=== PATIENT | male | born 1935 | race Caucasian/White ===

== ENCOUNTER 2018-10-04 16:03 | Inpatient (IN) | payer OTHER ==
[2018-10-04] MEDS ORDERED: LORazepam 2 MG/ML VIAL ONE ×2 (16:55→17:02)
[2018-10-04] MEDS ORDERED: NA CHLORIDE 0.9% 1,000 ML ONE ×2 (16:56→17:04)
[2018-10-04 16:59] LABS: Absolute Lymphocytes (CBC) 2.1 K/uL (0.7-4.9); Absolute Monocytes 0.6 K/uL (0.1-1.3); Absolute Neutrophil 7.1 K/uL (1.8-8.0); Basophils % 0.8 % (0-1.3); Eosinophils % 2.4 % (0-4.4); Lymphocytes % 20.7 % (15.3-44.8); MPV 9.8 fL (7.6-11.3); Monocytes % 5.9 % (3.3-12.3)
[2018-10-04] MEDS ORDERED: VANCOMYCIN 1 GM/250 ML BAG ONE (17:04)
[2018-10-04] MEDS ORDERED: CEFEPIME 1 GM/100 ML BAG IV ONE (17:05)
[2018-10-04 17:12] LABS: Protime INR 1.02
[2018-10-04 17:19] LABS: Albumin 3.5 g/dL (3.4-5.0); Bilirubin Direct 0.3 mg/dL (0-0.2); Bilirubin Total 0.7 mg/dL (0.2-1.0); CKMB Creatine Kinase MB 4.1 ng/mL (0.3-3.6); Protein, Total 7.7 g/dL (6.4-8.2); Troponin (Emerg Dept Use Only) 0.03 ng/mL (0.0-0.045)
--- NOTE | 2018-10-04 18:34 | RAD REPORT ---
EXAM DESCRIPTION: RAD - Chest Single View - 10/04/2018 5:56 pm CLINICAL HISTORY: CONGESTION Chest pain. COMPARISON: No comparisons FINDINGS: Portable technique limits examination quality. Mild interstitial pulmonary edema suspected. The heart is moderately enlarged in size. No displaced f ractures. IMPRESSION: Mild CHF.
--- NOTE | 2018-10-04 19:19 | ER ---
Nurse's Notes [facility] Name: Tray Coreas Age: 83 yrs Sex: Male : 1935 Arrival Date: 10/04/2018 Time: 16:06 Bed 8 Private MD: Ventura Romano E Diagnosis: Chronic atrial fibrillation;Tachycardia, unspecified Presentation: 10/04 16:05 Presenting complaint: states: "we went to the doctor's for a regular check up and aa5 they sent us here because he was really drowsy". Pt currently drowsy, awakens to verbal stimuli and A\\T\\O x 4. Pt's states "he fell twice this week because his left knee gives out on him and he's been really sluggish over the last week". 16:05 Transition of care: patient was not received from another setting of care. Onset of aa5 symptoms was September 2018. Risk Assessment: Do you want to hurt yourself or someone else? Patient reports no desire to harm self or others. Care prior to arrival: None. 16:05 Method Of Arrival: Wheelchair aa5 16:05 Acuity: JACOB 2 aa5 16:22 Initial Sepsis Screen: Does the patient meet any 2 criteria? Systolic BP < 90 mmHg. HR tw2 > 90 bpm. Does the patient have a suspected source of infection? Yes: Productive cough/pneumonia. Historical: - Allergies: 16:06 No Known Allergies; aa5 - Home Meds: 16:06 Lisinopril Oral [Active]; Tramadol Oral [Active]; meloxicam oral oral [Active]; Lyrica aa5 Oral [Active]; - PMHx: 16:06 Hypertension; Glaucoma; Back pain; knee pain; Chronic R foot wound; aa5 - PSHx: 16:06 retinal detachment repair-Right; Right rotator cuff sx; aa5 - Immunization history:: Pneumococcal vaccine is up to date, Flu vaccine is up to date. - Social history:: Smoking status: Patient/guardian denies using tobacco, Patient/guardian denies using alcohol, street drugs, The patient lives with family. - Ebola Screening: : No symptoms or risks identified at this time. - Family history:: not pertinent. Screenin:03 Abuse screen: Denies threats or abuse. Nutritional screening: No deficits noted. tw2 Tuberculosis screening: No symptoms or risk factors identified. Fall Risk Fall in past 12 months (25 points). Ambulatory Aid- Crutches/Cane/Walker (15 pts). Assessment: 16:22 General: Appears in no apparent distress. Behavior is calm, cooperative, appropriate tw2 for age. Pain: Denies pain. Neuro: Level of Consciousness is awake, alert, obeys commands, Oriented to person, place, situation. 16:45 Reassessment: pt started coughing and choking at this time, staff assist button hit, tw2 MAO Bass and MAO Jasso at bedside with Dr. Nuno at this time, pt had cough drop in mouth, cough drop removed, pt able to stop coughing and catch his breath at this time. Respiratory: Airway is patent Respiratory effort is even, unlabored, Respiratory pattern is regular, symmetrical, Breath sounds with wheezes bilaterally. GI: Abdomen is round obese, Bowel sounds present X 4 quads. : No signs and/or symptoms were reported regarding the genitourinary system. EENT: No signs and/or symptoms were reported regarding the EENT system. Derm: No signs and/or symptoms reported regarding the dermatologic system. Musculoskeletal: Range of motion: intact in all extremities. 17:55 Reassessment: Patient appears in no apparent distress at this time. Patient and/or tw2 family updated on plan of care and expected duration. Pain level reassessed. pt is snoring at this time, nad. Cardiovascular: Heart tones S1 S2 Patient's skin is warm and dry. 18:50 Reassessment: Patient appears in no apparent distress at this time. Patient and/or tw2 family updated on plan of care and expected duration. Pain level reassessed. Pt is snoring at this time, noted gurgling when snoring, offered suction to pt, pt tolerated well, small white mucous suctioned out at this time. 19:41 General: Appears uncomfortable, obese, Behavior is calm, cooperative, appropriate for ao age. Pain: Denies pain. Neuro: Level of Consciousness is awake, alert, obeys commands, Oriented to person, place, situation, Moves all extremities. Speech is normal, Facial symmetry appears normal. Cardiovascular: Heart tones S1 S2 Patient's skin is warm and dry. Respiratory: Airway is patent Respiratory effort is even, unlabored, Respiratory pattern is regular, symmetrical, Breath sounds with wheezes bilaterally. GI: Abdomen is round obese, Bowel sounds present X 4 quads. : No signs and/or symptoms were reported regarding the genitourinary system. EENT: No signs and/or symptoms were reported regarding the EENT system. Derm: No signs and/or symptoms reported regarding the dermatologic system. Skin is pink, warm \\T\\ dry. normal. Musculoskeletal: Range of motion: intact in all extremities. Vital Signs: 16:06 BP 66 / 50; Pulse 140; Resp 14 S; Temp 98.9(O); Pulse Ox 99% on R/A; Weight 99.79 kg aa5 (R); Height 5 ft. 11 in. (180.34 cm) (R); 16:39 BP 85 / 48; Pulse 139; iw 17:07 BP 81 / 69; Pulse 117; Resp 16 S; Pulse Ox 98% on 4 lpm NC; iw 17:16 BP 102 / 68; Pulse 108; Resp 25; Pulse Ox 100% on R/A; tw2 17:52 BP 115 / 85; Pulse 103; Resp 14; Pulse Ox 100% on 2 lpm NC; tw2 18:47 BP 124 / 69; Pulse 111; Resp 16; Pulse Ox 97% on 2 lpm NC; tw2 20:11 BP 112 / 65; Pulse 95; Resp 25; Pulse Ox 99% ; ao 22:38 BP 120 / 80; Pulse 102; Resp 28; Pulse Ox 100% ; Pain 0/10; ao 16:06 Body Mass Index 30.68 (99.79 kg, 180.34 cm) aa5 ED Course: 16:06 Patient arrived in ED. mr 16:07 Ventura Romano MD is Private Physician. mr 16:07 Arm band placed on. aa5 16:17 Triage completed. aa5 16:22 Placed in gown. Bed in low position. Side rails up X2. Adult w/ patient. Cardiac tw2 monitor on. Pulse ox on. NIBP on. pt placed on life pack. 16:25 Reema Nuno MD is Attending Physician. ma2 16:27 Svetlana Ruiz RN is Primary Nurse. tw2 16:45 Inserted saline lock: 22 gauge in right antecubital area, using aseptic technique. tw2 ,using aseptic technique. MAO Bass Blood collected. 16:50 EKG done, by microbiological laboratory technician. jb1 16:51 with cardioconversion, charged to 200 josep, shocked at [address] Nuno, tw2 MAO Bucio, MAO Jasso, MAO Mota and MAO Bass at bedside at this time. 17:01 Influenza Screen (a \\T\\ B) Sent. tw2 17:04 Blood Culture Adult (2) Sent. tw2 17:59 Chest Single View XRAY In Process Unspecified. EDMS 19:07 Report given to MAO Bearden and MAO Varghese 2nd lactate due at 1920 and urine dipstick tw2 outstanding at this time. 19:13 Primary Nurse role handed off by Svetlana Ruiz RN tw2 19:17 Reema Olson MD is Hospitalizing Provider. ma2 19:34 Halima Davis RN is Primary Nurse. ea 22:39 Patient admitted, IV remains in place. ao Administered Medications: 16:50 Drug: Ativan 2 mg Route: IVP; Site: right antecubital; tw2 17:00 Follow up: Response: No adverse reaction tw2 16:59 Drug: NS 0.9% (30 ml/kg) 30 ml/kg Route: IV; Rate: bolus; Site: right antecubital; tw2 18:49 Follow up: Response: No adverse reaction; IV Status: Completed infusion; IV Intake: tw2 2000ml 17:14 Drug: Cefepime 1 grams Route: IVPB; Rate: 200 ml/hr; Infused Over: 30 mins; Site: right tw2 antecubital; 17:42 Follow up: Response: No adverse reaction; IV Status: Completed infusion tw2 17:48 Drug: vancoMYCIN 1 grams Route: IVPB; Infused Over: 2 hrs; Site: right antecubital; tw2 Intake: 18:49 IV: 2000ml; Total: 2000ml. tw2 Outcome: 19:18 Decision to Hospitalize by Provider. ma2 22:38 Admitted to ICU accompanied by nurse, room 1, Other Bedside report given to MAO Garcia ao 22:38 Condition: stable 22:38 Instructed on the need for admit. 22:40 Patient left the ED. ao Signatures: Dispatcher [employer] EDMS Mickey Chacko jb1 Ana Luisa Vgea Irene, RN RN iw Calderon, Audri, RN RN aa5 Suleiman Brandt, RN RN Svetlana Grimes RN RN tw2 Halima Davis RN Reema Prather ea, MD MD ma2 Corrections: (The following items were deleted from the chart) 16:15 16:15 Arm band placed on aa5 aa5 17:57 16:22 Neuro: tw2 tw2 19:36 19:22 LACTATE+C.LAB.BRZ drawn and sent. tw2 EDMS
--- NOTE | 2018-10-04 19:19 | EDPHYS ---
Physician Documentation [facility] Name: Tray Coreas Age: 83 yrs Sex: Male : 1935 Arrival Date: 10/04/2018 Time: 16:06 Bed 8 Private MD: Ventura Romano E ED Physician Reema Nuno HPI: 10/04 17:47 This 83 yrs old Male presents to ER via Wheelchair with complaints of Fall ma2 Injury, Confusion. 17:47 This 83 yrs old Male presents to ER via Wheelchair with complaints of Fall ma2 Injury, Confusion. 17:47 This 83 yrs old Male presents to ER via Wheelchair with complaints of Fall ma2 Injury, Confusion. 17:47 Onset: The symptoms/episode began/occurred gradually, 2 day(s) ago. Associated ma2 injuries: The patient sustained no obvious injury. Severity of symptoms: At their worst the symptoms were moderate. The patient has not experienced similar symptoms in the past. here with cough and tachycardia been on z-pack for 3 days . Historical: - Allergies: 16:06 No Known Allergies; aa5 - Home Meds: 16:06 Lisinopril Oral [Active]; Tramadol Oral [Active]; meloxicam oral oral [Active]; Lyrica aa5 Oral [Active]; - PMHx: 16:06 Hypertension; Glaucoma; Back pain; knee pain; Chronic R foot wound; aa5 - PSHx: 16:06 retinal detachment repair-Right; Right rotator cuff sx; aa5 - Immunization history:: Pneumococcal vaccine is up to date, Flu vaccine is up to date. - Social history:: Smoking status: Patient/guardian denies using tobacco, Patient/guardian denies using alcohol, street drugs, The patient lives with family. - Ebola Screening: : No symptoms or risks identified at this time. - Family history:: not pertinent. ROS: 17:47 Constitutional: Negative for fever, chills, and weight loss. ma2 17:47 Respiratory: Positive for cough, shortness of breath, Negative for orthopnea. 17:47 All other systems are negative. Exam: 17:47 Constitutional: This is a well developed, well nourished patient who is awake, alert, ma2 and in no acute distress. Chest/axilla: Normal chest wall appearance and motion. Nontender with no deformity. No lesions are appreciated. 17:47 Abdomen/GI: Soft, non-tender, with normal bowel sounds. No distension or tympany. No guarding or rebound. No evidence of tenderness throughout. MS/ Extremity: Pulses equal, no cyanosis. Neurovascular intact. Full, normal range of motion. Neuro: Awake and alert, GCS 15, oriented to person, place, time, and situation. Cranial nerves II-XII grossly intact. Motor strength 5/5 in all extremities. Sensory grossly intact. Cerebellar exam normal. Normal gait. 17:47 Chest/axilla: Palpation: is normal. 17:47 Cardiovascular: Rate: tachycardic, Rhythm: irregular, irregularly irregular. 17:47 Respiratory: moderate respiratory distress is noted, Respirations: labored breathing, Breath sounds: rhonchi, that are moderate, are scattered, Respiratory rate: 22 Vital Signs: 16:06 BP 66 / 50; Pulse 140; Resp 14 S; Temp 98.9(O); Pulse Ox 99% on R/A; Weight 99.79 kg aa5 (R); Height 5 ft. 11 in. (180.34 cm) (R); 16:39 BP 85 / 48; Pulse 139; iw 17:07 BP 81 / 69; Pulse 117; Resp 16 S; Pulse Ox 98% on 4 lpm NC; iw 17:16 BP 102 / 68; Pulse 108; Resp 25; Pulse Ox 100% on R/A; tw2 17:52 BP 115 / 85; Pulse 103; Resp 14; Pulse Ox 100% on 2 lpm NC; tw2 18:47 BP 124 / 69; Pulse 111; Resp 16; Pulse Ox 97% on 2 lpm NC; tw2 20:11 BP 112 / 65; Pulse 95; Resp 25; Pulse Ox 99% ; ao 22:38 BP 120 / 80; Pulse 102; Resp 28; Pulse Ox 100% ; Pain 0/10; ao 16:06 Body Mass Index 30.68 (99.79 kg, 180.34 cm) aa5 Procedures: 17:49 Cardioversion: (synchronized) for treatment of A fib, with 100 joules X 1. 200 joules X ma2 1. Post procedure rhythm is sinus rhythm, the patient tolerated the procedure well. MDM: 16:25 Patient medically screened. ma2 17:47 Differential diagnosis: abrasion, contusion, sprain, afib w rvr, pneumonia. ok2 17:51 Data reviewed: vital signs, nurses notes. ok2 19:16 Counseling: I had a detailed discussion with the patient and/or guardian regarding: the [facility] historical points, exam findings, and any diagnostic results supporting the discharge/admit diagnosis, the presence of at least one elevated blood pressure reading (>120/80) during this emergency department visit, the need for further work-up and treatment in the hospital. Response to treatment: the patient's symptoms have markedly improved after treatment. ED course: discussed with dr. osborne . 10/04 16:37 Order name: Basic Metabolic Panel; Complete Time: 17:53 [facility] 10/04 16:37 Order name: Blood Culture Adult (2) [facility] 10/04 16:37 Order name: CBC with Diff; Complete Time: 17:53 [facility] 10/04 16:37 Order name: Ckmb; Complete Time: 17:53 [facility] 10/04 16:37 Order name: CPK; Complete Time: 17:53 [facility] 10/04 16:37 Order name: Lactate; Complete Time: 17:53 ok10/04 16:37 Order name: LFT's; Complete Time: 17:53 [facility] 10/04 16:37 Order name: Lipase; Complete Time: 17:53 [facility] 10/04 16:37 Order name: Procalcitonin; Complete Time: 17:53 ok10/04 16:37 Order name: Protime (+inr); Complete Time: 17:53 [facility] 10/04 16:37 Order name: Ptt, Activated; Complete Time: 17:53 [facility] 10/04 16:37 Order name: Troponin (emerg Dept Use Only); Complete Time: 17:53 ok10/04 16:37 Order name: Urine Microscopic Only [facility] 10/04 16:37 Order name: Influenza Screen (a \T\ B); Complete Time: 17:53 [facility] 10/04 16:37 Order name: Chest Single View XRAY; Complete Time: 19:15 [facility] 10/04 19:48 Order name: Lactate Sepsis 2 HR Follow-up [facility] 10/04 19:55 Order name: Echo with Doppler [facility] 10/04 19:55 Order name: CBC with Automated Diff [facility] 10/04 19:55 Order name: CBC with Automated Diff [facility] 10/04 19:55 Order name: Comprehensive Metabolic Panel [facility] 10/04 19:55 Order name: Comprehensive Metabolic Panel [facility] 10/04 19:55 Order name: NT PRO-BNP [facility] 10/04 19:55 Order name: NT PRO-BNP [facility] 10/04 19:55 Order name: Troponin I [facility] 10/04 19:55 Order name: Troponin I [facility] 10/04 19:55 Order name: Troponin I [facility] 10/04 16:37 Order name: Cardiac monitoring; Complete Time: 17:01 [facility] 10/04 16:37 Order name: EKG - Nurse/Tech; Complete Time: 17:01 [facility] 10/04 16:37 Order name: IV Saline Lock - Large Bore; Complete Time: 17:01 [facility] 10/04 16:37 Order name: Labs collected and sent; Complete Time: 17:01 [facility] 10/04 16:37 Order name: O2 Per Protocol; Complete Time: 17:01 [facility] 10/04 16:37 Order name: O2 Sat Monitoring; Complete Time: 17:01 [facility] 10/04 17:16 Order name: EKG Electrocardiogram [facility] 10/04 17:55 Order name: EKG Electrocardiogram [facility] 10/04 19:55 Order name: CONS Physician Consult [facility] 10/04 19:55 Order name: Heart Healthy [facility] 10/04 19:55 Order name: EKG Electrocardiogram [facility] 10/04 19:55 Order name: EKG Electrocardiogram [facility] Administered Medications: 16:50 Drug: Ativan 2 mg Route: IVP; Site: right antecubital; tw2 17:00 Follow up: Response: No adverse reaction tw2 16:59 Drug: NS 0.9% (30 ml/kg) 30 ml/kg Route: IV; Rate: bolus; Site: right antecubital; tw2 18:49 Follow up: Response: No adverse reaction; IV Status: Completed infusion; IV Intake: tw2 2000ml 17:14 Drug: Cefepime 1 grams Route: IVPB; Rate: 200 ml/hr; Infused Over: 30 mins; Site: right tw2 antecubital; 17:42 Follow up: Response: No adverse reaction; IV Status: Completed infusion tw2 17:48 Drug: vancoMYCIN 1 grams Route: IVPB; Infused Over: 2 hrs; Site: right antecubital; tw2 Disposition: 10/04/18 19:18 Hospitalization ordered by Reema Osborne for Inpatient Admission. Preliminary diagnosis are Chronic atrial fibrillation, Tachycardia, unspecified. - Bed requested for Intensive Care Unit. - Status is Inpatient Admission. ao - Condition is Stable. - Problem is new. - Symptoms are unchanged. UTI on Admission? No Critical care time excluding procedures: 17:49 Critical care time: Bedside Care: 30 minutes, Consultation: 10 minutes, Family ma2 Intervention: 10 minutes. Total time: 50 minutes Signatures: Dispatcher [employer] EDFL Darleen Lin RN Louisa Díaz RN RN Billie Whitten, RN RN aa5 Suleiman Brandt RN Svetlana Espinosa RN MAO tw2 Reema Nuno MD MD [facility] Corrections: (The following items were deleted from the chart) 17:00 16:37 Accucheck ordered. [facility] tw2 19:36 19:09 LACTATE+C.LAB.BRZ ordered. [facility] 20:01 19:18 Hospitalization Ordered by Reema Osborne MD for Inpatient Admission. Preliminary diagnosis is Chronic atrial fibrillation; Tachycardia, unspecified. Bed requested for Intensive Care Unit. Status is Inpatient Admission. Condition is Stable. Problem is new. Symptoms are unchanged. UTI on Admission? No. [facility] 22:40 20:01 10/04/2018 19:18 Hospitalization Ordered by Reema Osborne MD for Inpatient ao Admission. Preliminary diagnosis is Chronic atrial fibrillation; Tachycardia, unspecified. Bed requested for Intensive Care Unit. Status is Inpatient Admission. Condition is Stable. Problem is new. Symptoms are unchanged. UTI on Admission? No. kl
[2018-10-04] MEDS ORDERED: ONDANSETRON 4 MG/2 ML VIAL IV PRN (19:50)
[2018-10-04] MEDS: METOPROLOL TAR 50 MG TAB PO SCH (21:00)
[2018-10-05] MEDS: NACHLORIDE 0.45% 1,000 ML IV SCH ×2 (00:50→16:00)
[2018-10-05 05:53] LABS: Albumin 3.2 g/dL (3.4-5.0); Bilirubin Total 0.6 mg/dL (0.2-1.0); Magnesium 2.2 mg/dL (1.8-2.4); Phosphorus 3.9 mg/dL (2.5-4.9); Potassium 4.3 mmol/L (3.5-5.1); Protein, Total 6.6 g/dL (6.4-8.2)
[2018-10-05 05:54] LABS: Blood Morphology Comment NOT SEEN (NOT SEEN); Platelet Estimate ADEQ; Urine White Blood Cell Casts OK
[2018-10-05 05:55] LABS: Absolute Lymphocytes (CBC) 1.8 K/uL (0.7-4.9); Absolute Monocytes 0.5 K/uL (0.1-1.3); Absolute Neutrophil 8.1 K/uL (1.8-8.0); Basophils % 0.8 % (0-1.3); Eosinophils % 2.1 % (0-4.4); Lymphocytes % 16.7 % (15.3-44.8); MPV 9.8 fL (7.6-11.3); Monocytes % 4.7 % (3.3-12.3)
[2018-10-05] MEDS ORDERED: FUROSEMIDE 20 MG/ 2ML VIAL IV ONE (06:10)
[2018-10-05 06:57] LABS: Thyroid Stimulating Hormone 0.461 uIU/mL (0.360-3.740)
--- NOTE | 2018-10-05 07:21 | EKG ---
Test Date: 2018-10-04 Test Time: 16:57:56 Head Of Data: GIDEON MEASUREMENT RESULTS: Intervals: Rate: 110 WA: 124 QRSD: 130 QT: 386 QTc: 522 [place]: P: 28 WA: 124 QRS: -52 T: 74 INTERPRETIVE STATEMENTS: Sinus tachycardia Right bundle branch block Left axis Inferior infarct, age undetermined Abnormal ECG Compared to ECG 10/04/2018 16:44:12 Atrial fibrillation no longer present Ventricular premature complex(es) no longer present Myocardial infarct finding still present Electronically Signed On 10-05-18 07:20:43 ANODIZER by Jay Sánchez
--- NOTE | 2018-10-05 07:22 | EKG ---
Test Date: 2018-10-04 Test Time: 16:44:12 Dietary Clerk: [place] MEASUREMENT RESULTS: Intervals: Rate: 154 ID: QRSD: [id number] QT: 334 QTc: 534 [place]: P: ID: QRS: [id number] T: 40 INTERPRETIVE STATEMENTS: Atrial fibrillation with rapid ventricular response with premature ventricular or aberrantly conducted complexes Left axis deviation Right bundle branch block Inferior infarct, age undetermined Abnormal ECG No previous ECG available for comparison Electronically Signed On 10-05-18 07:21:01 CARPENTER ASSEMBLER by Jay Sánchez
[2018-10-05] MEDS: FUROSEMIDE 20 MG/ 2ML VIAL IV SCH ×2 (09:00→17:00)
--- NOTE | 2018-10-05 09:21 | P.HP ---
Certification for Inpatient Patient admitted to: Inpatient With expected LOS: >2 Midnights Patient will require the following post-hospital care: None Practitioner: I am a practitioner with admitting privileges, knowledge of patient current condition, hospital course, and medical plan of care. Services: Services provided to patient in accordance with Admission requirements found in Title 42 Section 412.3 of the Code of Federal Regulations Patient History Date of Service: 10/04/18 Reason for admission: Atrial fibrillation with rapid ventricular response History of Present Illness: Patient is an 83-year-old gentleman who came into the hospital with atrial fibrillation with rapid ventricular response. He was given a synchronized cardioversion x2 in the emergency room and he converted to a sinus rhythm. When I saw him he had been given medication for sedation and was very lethargic. He was difficult to arouse. He was admitted to ICU for monitoring. I came back and checked on him a few hours later and he was a little more awake. He was following commands but his speech was really garbled. He says he normally talks like this and had bronchitis. He answered a lot of my questions appropriately but some of them were not making sense. He was still pretty sleepy so will reassess him in the morning. Allergies No Known Allergies Allergy (Unverified 06/02/16 15:53) Home Medications: Aspirin [[place] Aspirin] 81 mg PO DAILY 06/05/16 Atorvastatin Calcium [Lipitor] 20 mg PO T,,S 06/05/16 Bimatoprost [[place]igan Opthalmic Drops] 1 drop OP BID 06/05/16 Collagenase [Santyl Ointment] 30 appl TOP DAILY 06/05/16 Docusate [Colace Cap] 100 mg PO DAILY PRN 06/05/16 Dorzolamide HCl/Timolol Maleat [Dorzolamide-Timolol Eye Drops] 1 drop OP BID Hydrocodone/Acetaminophen [Hydrocodon-Acetaminophen 5-325] 1 each PO Q6HP PRN Ibuprofen [Motrin] 600 mg PO TID PRN 06/05/16 Meloxicam [Mobic] 15 mg PO DAILY 06/05/16 Multivitamin [Daily Multiple Vitamin] 1 each PO DAILY 06/05/16 Pregabalin [Lyrica] 200 mg PO TID 06/05/16 Tramadol HCl [Ultram] 50 mg PO BID 06/05/16 hydroCHLOROthiazide [Hydrochlorothiazide*] 12.5 mg PO DAILY 06/05/16 - Past Medical/Surgical History Has patient received pneumonia vaccine in the past: Yes Diabetic: No -: Benign Hypertension -: Hypercholestrolemia -: Obesity -: Osteoarthritis -: Venous Insufficiency -: Epidural Lipomatosis -: Lumbosacral spinal stenosis -: bilateral cataract -: right rotator cuff - Family History Mother Medical History: Stroke, Cancer Sister Medical History: Hypertension, Diabetes - Social History Smoking Status: Former smoker Alcohol use: Yes CD- Drugs: No Caffeine use: Yes Place of Residence: Home Review of Systems 10-point ROS is otherwise unremarkable Physical Examination - Vital Signs Temperature: 97.2 F Blood Pressure: 129/88 Pulse: 89 Respirations: 27 Pulse Ox (%): 100 - Physical Exam General: Alert, In no apparent distress, Oriented x2 HEENT: Atraumatic, PERRLA, Mucous membr. moist/pink, EOMI, Sclerae nonicteric Neck: Supple, 2+ carotid pulse no bruit, No LAD, Without JVD or thyroid abnormality Respiratory: Clear to auscultation bilaterally, Normal air movement Cardiovascular: Regular rate/rhythm, Normal S1 S2, No murmurs Gastrointestinal: Normal bowel sounds, Soft and benign, Non-distended, No tenderness Musculoskeletal: No swelling, No contractures, No tenderness Integumentary: No rashes Neurological: Normal speech, Normal tone, Sensation intact, Cranial nerves 3-12 intact, Normal affect, Abnormal strength ( He is unable to hold up both of his arms with this are equal. He appears to have some rotator cuff issues) Lymphatics: No axilla or inguinal lymphadenopathy - Studies Laboratory Data (last 24 hrs) 10/04/18 16:45: PT 12.0, INR 1.02, APTT 33.2 10/04/18 16:45: WBC 10.1, Hgb 15.2, Hct 44.0, Plt Count 274 10/04/18 16:45: Sodium 137, Potassium 4.0, BUN 25 H, Creatinine 1.70 H, Glucose 139 H, Total Bilirubin 0.7, AST 25, ALT 24, Alkaline Phosphatase 74, Lipase 153 Microbiology Data (last 24 hrs): 10/04/18 16:55 Nasopharnyx Influenza Type A Antigen Screen - Final 10/04/18 16:55 Nasopharnyx Influenza Type B Antigen Screen - Final Assessment & Plan - Problems (Diagnosis) (1) Atrial fibrillation with rapid ventricular response Current Visit: Yes Status: Acute (2) Atrial fibrillation status post cardioversion Current Visit: Yes Status: Acute (3) Rotator cuff injury Current Visit: Yes Status: Acute (4) Dysarthria Current Visit: Yes Status: Acute (5) CHF (congestive heart failure) Current Visit: Yes Status: Acute (6) Obesity (BMI 30.0-34.9) Current Visit: No Status: Acute - Plan 1. Will continue medications for rate control and anticoagulation 2. Continue with strict blood pressure control 3. Echocardiogram 4. Cardiology consultation 5. Repeat chest x-ray 6. reassess neurologic status in a.m.. He is more awake and following most of my commands. However his speech is a little garbled. Unsure as to what his baseline is. He moves all his extremities but his upper extremities he has a hard time lifting because of a rotator cuff injury. We will exam in a.m. 1 more awake 7. GI and DVT prophylaxis Discharge Plan: Home Plan to discharge in: Greater than 2 days - Advance Directives Does patient have a Living Will: No Does patient have a Durable POA for Healthcare: Yes - Code Status/Comfort Care Code Status: Full Code Critical Care: No Time Spent Managing PTS Care (In Minutes): 50
--- NOTE | 2018-10-05 09:42 | RAD REPORT ---
EXAM DESCRIPTION: CT - Head Brain Wo Cont - 10/05/2018 9:29 am CLINICAL HISTORY: R/O Stroke Drowsiness, headache, CVA symptomology. COMPARISON: No comparisons TECHNIQUE: All CT scans are performed using dose optimization technique as appropriate and may inclu de automated exposure control or mA/KV adjustment according to patient size. FINDINGS: No intracranial hemorrhage, hydrocephalus or extra-axial fluid collection.Mild generalized brain atrophy is present with mild periventricular and deep white matter chronic microvascular ische estuardo changes.No areas of brain edema or evidence of midline shift. The paranasal sinuses and mastoids are clear. The calvarium is intact. The left vertebral artery is h eavily calcified. IMPRESSION: No acute intracranial abnormality.
--- NOTE | 2018-10-05 10:21 | EKG ---
Test Date: 2018-10-05 Test Time: 08:05:30 Direct Care Specialist: BETTINA MEASUREMENT RESULTS: Intervals: Rate: 105 ME: 166 QRSD: 130 QT: 372 QTc: 491 [place]: P: 44 ME: 166 QRS: -50 T: 33 INTERPRETIVE STATEMENTS: Sinus tachycardia with premature atrial complexes Right bundle branch block Abnormal ECG Compared to ECG 10/04/2018 16:57:56 Atrial premature complex(es) now present Myocardial infarct finding no longer present Electronically Signed On 10-05-18 10:21:12 ENGRAVER BLOCK by Jay Sánchez
[2018-10-05] MEDS: METOPROLOL TAR 50 MG TAB PO SCH (10:25)
--- NOTE | 2018-10-05 12:41 | ECHO ---
HEIGHT: 5 ft 11 in WEIGHT: 224 lb 5 oz DATE OF STUDY: 10/04/[address]: Reema Olson MD 2-DIMENSIONAL: YES M.MODE: YES DOPPLER: YES COLOR FLOW: YES TDS: NO PORTABLE: NO DEFINITY: NO BUBBLE STUDY: NO DIAGNOSIS: ATRIAL FIBRILLATION CARDIAC HISTORY: CATHERIZATION: NO SURGERY: NO PROSTHETIC VALVE: NO PACEMAKER: NO MEASUREMENTS (cm) DIASTOLIC (NORMALS) SYSTOLIC (NORMALS) IVSd 1.1 (0.6-1.2) LA Diam 4.6 (1.9-4.0) LVEF 54% LVIDd 5.4 (3.5-5.7) LVIDs 3.8 (2.0-3.5) %FS 28% LVPWd 1.2 (0.6-1.2) Ao Diam 3.5 (2.0-3.7) 2 DIMENSIONAL ASSESSMENT: RIGHT ATRIUM: NORMAL LEFT ATRIUM: DILATED RIGHT VENTRICLE: NORMAL LEFT VENTRICLE: NORMAL TRICUSPID VALVE: NORMAL MITRAL VALVE: NORMAL PULMONIC VALVE: NORMAL AORTIC VALVE: STENOSIS PERICARDIAL EFFUSION: NONE AORTIC ROOT: NORMAL LEFT VENTRICULAR WALL MOTION: NORMAL. DOPPLER/COLOR FLOW: MODERATE AORTIC STENOSIS PEAK/MEAN GRADIENT 87/19mmHg. ESTIMATED AORTIC VALVE AREA 1.2 CENTIMETERS SQUARED. NO AORTIC REGURGITATION. MILD MITRAL AND TRICUSPID REGURGITATION. ESTIMATED RIGHT VENTRICULAR SYSTOLIC PRESSURE 35mmHg (NORMAL). COMMENTS: NORMAL LEFT VENTRICULAR. DILATED LEFT ATRIUM. MODERATE AORTIC STENOSIS. NO AORTIC REGURGITATION. MILD MITRAL AND TRICUSPID REGURGITATION. SINUS RHYTHM. TECHNOLOGIST: CALISTA SEBASTIAN
--- NOTE | 2018-10-05 13:20 | CON ---
CARDIOLOGY CONSULT History Of Present Illness: An 85-year-old man. Mr. Coreas came to the hospital, brought by his fam miah to the doctor's office because he has been sluggish and lethargic. He was sent by his physician to the emergency room. He was found to be in AFib. I do not think we had much of the history about how long he had been in AFib, but he underwent a cardioversion, is now in sinus tachycardia. The pat iemeño does not have a history of arrhythmia or any heart trouble. He has a history of hypertension, g laucoma, back pain, knee pain. He has had retinal detachment, repair of a right rotator cuff and a k nee injury. He uses no tobacco, no alcohol or illegal drugs. Outpatient Medications: Only outpatient medications listed are lisinopril, tramadol, meloxicam, and Lyrica. Physical Examination: General: Mr. Coreas is in the ICU, quite somnolent, when I awaken him, he is able to answer a few qu estions. He loses focus and cannot really sound very oriented at this time. I think he is perhaps d elirious on drugs, he might have received overnight, I am not sure, he does not have a focal neurolog ical deficit. He is able to form words and seems to understand, but prefers to fall back to sleep. Vital signs: On physical exam, his heart is going about 110 beats per minute. It is sinus tachycard ia. His blood pressure is 125/88. Lungs: Do not reveal wheezes or crackles. Heart exam: Regular rate and rhythm. Extremities: Palpable distal pulses. Laboratory Data: Laboratory exam reveals a troponin before he was shocked of 0.04 and 0.03. An N-te rminal proBNP is 2043, creatinine 1.11. Impression: Mr. Coreas had transient atrial fibrillation, I am not sure why he is so lethargic and c onfused. I wonder if he has had atrial fibrillation for some time and may have multiple cerebral inf arctions. I think we need to get a neurological consult and perhaps even get an MRI of the brain. H e should be on anticoagulants because of his atrial fibrillation and he should be on a heart rhythm m edicine to prevent atrial fibrillation recurrence and slow the heart rate down. We will get an echoc ardiogram later today and hopefully a neurological evaluation. ELLIOTT/DANIELA Voice ID: [id number] Report ID: [id number]
[2018-10-05] MEDS: ENOXAPARIN 100 MG/ML SYR SQ SCH ×2 (13:35→21:02)
--- NOTE | 2018-10-05 15:53 | RAD REPORT ---
EXAM DESCRIPTION: MRI - Brain Wo Cont - 10/05/2018 3:42 pm CLINICAL HISTORY: Transient alteration of awareness, stroke-like symptoms COMPARISON: CT study same date TECHNIQUE: Sagittal T1-weighted images were obtained along with axial PD, heavily T2-weighted and T2 -FLAIR images. Axial DWI and ADC mapping sequences were also obtained along with coronal heavily T2-w eighted images. FINDINGS: No intracranial hemorrhage, mass or acute infarction. There is no edema or shift of midlin e structures. No extra-axial fluid collections. Guzmán-matter/white matter junction is preserved. Signa l voids are seen as a normal finding in the major intracranial vessels. Prominent atrophy and mild chronic ischemic changes are noted. Ventricles are in proportion to the vo lume loss. No globe or orbital content abnormality seen. Mastoid air cells and paranasal sinuses are clear. IMPRESSION: No infarction changes are present. No mass, hemorrhage or acute intracranial finding. Prominent atrophy and mild chronic ischemic change.
[2018-10-05] MEDS ORDERED: PHENOL 1.4% ORAL SPRAY 180ML MM PRN (17:05)
[2018-10-05] MEDS: SOTALOL HCL 80 MG TAB PO SCH (18:07)
--- NOTE | 2018-10-05 18:55 | P.PN ---
Subjective Date of Service: 10/05/18 Chief Complaint: Atrial fibrillation with rapid ventricular response Subjective: Improving Patient seen and examined at bedside. No family at bedside. Chart reviewed and case discussed with nursing staff. Review of Systems 10-point ROS is otherwise unremarkable Physical Examination - Vital Signs Temperature: 97.5 F Blood Pressure: 102/68 Pulse: 82 Respirations: 24 Pulse Ox (%): 96 - Physical Exam General: Alert, In no apparent distress, Oriented x3 HEENT: Atraumatic, PERRLA, EOMI Neck: Supple, JVD not distended Respiratory: Clear to auscultation bilaterally, Normal air movement Cardiovascular: Normal S1 S2, Irregular heart rate/rhythm Gastrointestinal: Normal bowel sounds, No tenderness Musculoskeletal: No tenderness Integumentary: No rashes Neurological: Normal speech, Normal tone, Normal affect Lymphatics: No axilla or inguinal lymphadenopathy - Studies Microbiology Data (last 24 hrs): 10/04/18 16:55 Nasopharnyx Influenza Type A Antigen Screen - Final 10/04/18 16:55 Nasopharnyx Influenza Type B Antigen Screen - Final Assessment And Plan - Plan (1) Atrial fibrillation with rapid ventricular response (2) Atrial fibrillation status post cardioversion Patient is status post cardioversion in the ER. Continue sotalol. Pending cardiology consultation Continuous strict blood pressure control Echocardiogram pending. (3) Rotator cuff injury (4) Dysarthria (5) CHF (congestive heart failure) (6) Obesity (BMI 30.0-34.9) (7) lethargy Neurological status seems to be much improved compared to yesterday. MRI of the brain ordered, pending. DVT prophylaxis: Lovenox GI prophylaxis: Protonix Diet: Heart healthy Disposition: Continue to monitor the ICU.
[2018-10-05] MEDS: ACETAMINOPHEN 500 MG TAB PO PRN (21:21)
[2018-10-06] MEDS ORDERED: SOTALOL HCL 80 MG TAB PO ONE (00:35)
[2018-10-06] MEDS: TEMAZEPAM 15 MG CAP PO PRN ×2 (00:50→21:53)
[2018-10-06 05:27] LABS: Magnesium 2.2 mg/dL (1.8-2.4); Phosphorus 2.5 mg/dL (2.5-4.9)
[2018-10-06] MEDS: SOTALOL HCL 80 MG TAB PO SCH ×2 (06:04→18:36)
--- NOTE | 2018-10-06 09:54 | EKG ---
Test Date: 2018-10-06 Test Time: 00:48:17 Farm Loan Representative: RT Zuniga MEASUREMENT RESULTS: Intervals: Rate: 106 OR: QRSD: 136 QT: 474 QTc: 629 [place]: P: OR: QRS: -41 T: 222 INTERPRETIVE STATEMENTS: atrial fibrillation Left axis deviation Right bundle branch block T wave abnormality, consider lateral ischemia Abnormal ECG Compared to ECG 10/05/2018 08:05:30 Sinus tachycardia no longer present Electronically Signed On 10-06-18 09:53:54 FOCUSER by Jay Sánchez
[2018-10-06] MEDS: ENOXAPARIN 100 MG/ML SYR SQ SCH ×2 (10:39→20:42)
--- NOTE | 2018-10-06 10:58 | PN ---
Mr. Coreas went back into atrial fibrillation despite him being on sotalol 80 b.i.d., increase the am ount to 120 b.i.d. We will try another cardioversion tomorrow. His echo shows normal EF, but he has moderate aortic stenosis without much of a murmur. I will try to get him to re-establish sinus rhyt hm tomorrow, and today we will increase the amount of sotalol he takes. KHALIDA Voice ID: [id number] Report ID: [id number]
--- NOTE | 2018-10-06 18:43 | P.PN ---
Subjective Date of Service: 10/06/18 Chief Complaint: Atrial fibrillation with rapid ventricular response Subjective: Improving Patient seen and examined at bedside. at bedside. Chart reviewed and case discussed with nursing staff. Review of Systems 10-point ROS is otherwise unremarkable Physical Examination - Vital Signs Temperature: 97.7 F Blood Pressure: 138/67 Pulse: 93 Respirations: 25 Pulse Ox (%): 97 - Physical Exam General: Alert, In no apparent distress HEENT: Atraumatic, PERRLA, EOMI Neck: Supple, JVD not distended Respiratory: Clear to auscultation bilaterally, Normal air movement Cardiovascular: Irregular heart rate/rhythm Gastrointestinal: Normal bowel sounds, No tenderness Musculoskeletal: No tenderness Integumentary: No rashes Neurological: Normal speech, Normal tone, Normal affect Lymphatics: No axilla or inguinal lymphadenopathy Assessment And Plan - Plan (1) Atrial fibrillation with rapid ventricular response (2) Atrial fibrillation status post cardioversion Patient is status post cardioversion in the ER. Unfortunately, he converted back to atrial fibrillation overnight. Increase dosage of sotalol. Cardiology consultation, recommendations appreciated Continuous strict blood pressure control Echocardiogram pending. (3) Rotator cuff injury (4) Dysarthria (5) CHF (congestive heart failure) (6) Obesity (BMI 30.0-34.9) (7) lethargy Neurological status seems to be much improved compared to yesterday. MRI of the brain negative for any acute abnormalities. DVT prophylaxis: Lovenox GI prophylaxis: Protonix Diet: Heart healthy Disposition: Continue to monitor the ICU.
[2018-10-06] MEDS: IBUPROFEN PO PRN (20:43)
[2018-10-06] MEDS: DIPHENHYDRAMINE PO PRN (20:43)
[2018-10-07 05:40] LABS: Magnesium 2.1 mg/dL (1.8-2.4); Potassium 3.9 mmol/L (3.5-5.1)
[2018-10-07] MEDS: SOTALOL HCL 80 MG TAB PO SCH ×2 (06:05→17:50)
[2018-10-07] MEDS ORDERED: MIDAZOLAM HCL 2 MG/2 ML INJ IV ONE (08:16)
[2018-10-07] MEDS ORDERED: MIDAZOLAM HCL 2 MG/2 ML INJ ONE ×2 (08:22→08:33)
[2018-10-07] MEDS ORDERED: NA CHLORIDE 0.9% 500 ML ONE (08:24)
[2018-10-07] MEDS: ENOXAPARIN 100 MG/ML SYR SQ SCH ×2 (08:45→20:35)
--- NOTE | 2018-10-07 09:51 | EKG ---
Test Date: 2018-10-07 Test Time: 08:29:35 Home Child Care Provider: BETTINA MEASUREMENT RESULTS: Intervals: Rate: 70 MI: 194 QRSD: 138 QT: 472 QTc: 509 [place]: P: 54 MI: 194 QRS: -41 T: 184 INTERPRETIVE STATEMENTS: Normal sinus rhythm Possible Left atrial enlargement Left axis deviation Right bundle branch block T wave abnormality, consider lateral ischemia Abnormal ECG Compared to ECG 10/06/2018 00:48:17 Atrial fibrillation no longer present T-wave abnormality still present Possible ischemia still present Electronically Signed On 10-07-18 09:20:38 PUBLIC INFORMATION RELATIONS MANAGER by Jay Sánchez
--- NOTE | 2018-10-07 17:34 | P.PN ---
Subjective Date of Service: 10/07/18 Chief Complaint: Atrial fibrillation with rapid ventricular response Subjective: Improving Patient seen and examined at bedside. at bedside. Chart reviewed and case discussed with nursing staff. Doing well this morning. In normal sinus rhythm. He was cardioverted today with 200 joules Review of Systems 10-point ROS is otherwise unremarkable Physical Examination - Vital Signs Temperature: 97.7 F Blood Pressure: 138/67 Pulse: 93 Respirations: 25 Pulse Ox (%): 97 - Physical Exam General: Alert, In no apparent distress, Oriented x3 HEENT: Atraumatic, PERRLA, EOMI Neck: Supple, JVD not distended Respiratory: Clear to auscultation bilaterally, Normal air movement Cardiovascular: Regular rate/rhythm, Normal S1 S2 Gastrointestinal: Normal bowel sounds, No tenderness Musculoskeletal: No tenderness Integumentary: No rashes Neurological: Normal speech, Normal tone, Normal affect Lymphatics: No axilla or inguinal lymphadenopathy Assessment And Plan - Plan (1) Atrial fibrillation with rapid ventricular response (2) Atrial fibrillation status post cardioversion Patient is status post cardioversion in the ER. He was in normal sinus rhythm, converted to atrial fibrillation again. He was started on sotalol, remained in atrial fibrillation therefore his dosage was increased to 120 mg Cardiology consultation, recommendations appreciated Continuous strict blood pressure control Echocardiogram with normal ejection fraction, dilated atria (3) Rotator cuff injury (4) Dysarthria (5) CHF (congestive heart failure), chronic, diastolic (6) Obesity (BMI 30.0-34.9) (7) lethargy Neurological status seems to be much improved compared to yesterday. MRI of the brain negative for any acute abnormalities. (8) Heavy alcohol usage Continue to monitor patient for withdrawal symptoms. Not noted so far. DVT prophylaxis: Lovenox GI prophylaxis: Protonix Diet: Heart healthy Disposition: Continue to monitor the ICU. If he continues to remain in normal sinus rhythm overnight, transferred to the floor in the morning.
[2018-10-07] MEDS: IBUPROFEN PO PRN ×2 (20:35→22:05)
[2018-10-07] MEDS: DIPHENHYDRAMINE PO PRN ×2 (20:35→22:05)
--- NOTE | 2018-10-07 20:41 | OP ---
Surgeon: Jay Sácnhez MD Procedure: Cardioversion. Indication: Mr. Coreas went back into atrial fibrillation. We increased the dose of Betapace, kept him on anticoagulant, and we performed a second cardioversion . Anterior-posterior paddles were placed on his chest. He was given Versed and sedated adequately. A single shock 200 joules was administered through AP paddles, synchronized the QRS complex. He alex rged from this in sinus rhythm. No complications. Mr. Coreas is going to have to find a way to disc ontinue alcohol use to have a good prognosis for the rest of his life. 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 I think we can probably get him out of ICU and start giving him an oral anticoagulant and perhaps he could be sent home in a day or two. ELLIOTT/DANIELA Voice ID: [id number] Report ID: [id number]
[2018-10-07] MEDS: TEMAZEPAM 15 MG CAP PO PRN (22:27)
[2018-10-08] MEDS: SOTALOL HCL 80 MG TAB PO SCH ×2 (05:48→18:15)
[2018-10-08] MEDS: ENOXAPARIN 100 MG/ML SYR SQ SCH ×2 (09:43→19:56)
[2018-10-08] MEDS ORDERED: ADVIL PM PO PRN (12:54)
--- NOTE | 2018-10-08 16:28 | P.PN ---
Subjective Date of Service: 10/08/18 Chief Complaint: Atrial fibrillation with rapid ventricular response Subjective: Improving Patient seen and examined at bedside. at bedside. Chart reviewed and case discussed with nursing staff. Doing well this morning. He is status post cardioversion on 10/07/2018, continues remain in normal so Continues to be hemodynamically stable. Review of Systems 10-point ROS is otherwise unremarkable Physical Examination - Vital Signs Temperature: 99.1 F Blood Pressure: 116/57 Pulse: 63 Respirations: 21 Pulse Ox (%): 96 - Physical Exam General: Alert, In no apparent distress, Oriented x3 HEENT: Atraumatic, PERRLA, EOMI Neck: Supple, JVD not distended Respiratory: Clear to auscultation bilaterally, Normal air movement Cardiovascular: Regular rate/rhythm, Normal S1 S2 Gastrointestinal: Normal bowel sounds, No tenderness Musculoskeletal: No tenderness Integumentary: No rashes Neurological: Normal speech, Normal tone, Normal affect Lymphatics: No axilla or inguinal lymphadenopathy Assessment And Plan - Plan (1) Atrial fibrillation with rapid ventricular response (2) Atrial fibrillation status post cardioversion Patient is status post cardioversion x 2 in the ER. He was in normal sinus rhythm, converted to atrial fibrillation again. He was started on sotalol, remained in atrial fibrillation therefore his dosage was increased to 120 mg. Despite the dosage increase, he did not convert to normal sinus rhythm. He has again status post cardioversion on 10/07/2018 with 200 joules. Now in normal sinus rhythm. Cardiology consultation, recommendations appreciated Continuous strict blood pressure control Echocardiogram with normal ejection fraction, dilated atria (3) Rotator cuff injury (4) Dysarthria (5) CHF (congestive heart failure), chronic, diastolic (6) Obesity (BMI 30.0-34.9) (7) lethargy Resolved. MRI of the brain negative for any acute abnormalities. (8) Heavy alcohol usage Continue to monitor patient for withdrawal symptoms. None noted so far. Educated on alcohol cessation. DVT prophylaxis: Lovenox GI prophylaxis: Protonix Diet: Heart healthy Disposition: Continues remain our all sinus rhythm. May transfer to the floor. Likely discharge home in the next 24-48 hr if continues to remain stable.
[2018-10-08 20:24] VITALS: BMI 30.5
[2018-10-09] MEDS: SOTALOL HCL 80 MG TAB PO SCH (06:09)
[2018-10-09 07:12] LABS: Potassium 3.8 mmol/L (3.5-5.1)
[2018-10-09] MEDS ORDERED: POTASSIUM 25 MEQ EFFERV TAB PO ONE (09:00)
[2018-10-09] MEDS: ENOXAPARIN 100 MG/ML SYR SQ SCH (09:12)
[2018-10-09] MEDS: ACETAMINOPHEN 500 MG TAB PO PRN (09:13)
[2018-10-09 09:56] VITALS: O2SAT 97
[2018-10-09 10:56] VITALS: BP 139/71; TEMP 97.9
--- NOTE | 2018-10-09 11:28 | PN ---
Date of Progress Note: 10/08/2018 Mr. Coreas had been followed by Dr. Jay Sánchez for atrial fibrillation. He is status post cardiove rsion. He was initially placed on Betapace 80 mg b.i.d. and remained in atrial fibrillation. An ech ocardiogram showed moderate aortic stenosis with normal ejection fraction. His Betapace was increase d to 120 b.i.d. Today, he is in sinus bradycardia, remains on Lovenox for now. He can move to a [facility] telemetry floor from my standpoint. The decision regarding anticoagulation in the long run devika ld be left to his primary care physician. I will suggest Eliquis for the long run. REBECCA/DANIELA Voice ID: [id number] Report ID: [id number]
--- NOTE | 2018-10-09 13:28 | PN ---
Date of Progress Note: 10/09/2018 Subjective: Mr. Coreas was admitted for syncope, atrial fibrillation, constipation, status post dire ct current cardioversion. He is now on Betapace 120 mg 1 p.o. b.i.d. He remained in sinus rhythm. No specific complaints except general weakness. He is awaiting physical therapy and home health arra ngement. He is on p.o. Lasix and continues to be on Lovenox. I suggest when he goes home he gets on Eliquis 5 mg b.i.d. in addition to his Betapace and we will be happy to see him as an outpatient. Irving alberts is requesting a local family physician care or internal medicine care as well gastroenterology care and I will make arrangements for that when I see him in the office as an outpatient. SARIAT Voice ID: [id number] Report ID: [id number]
[2018-10-09 13:37] LABS: Absolute Lymphocytes (CBC) 1.7 K/uL (0.7-4.9); Absolute Monocytes 0.4 K/uL (0.1-1.3); Absolute Neutrophil 4.4 K/uL (1.8-8.0); Basophils % 0.6 % (0-1.3); Eosinophils % 1.9 % (0-4.4); Hematocrit 41.1 % (39.6-49.0); Lymphocytes % 25.4 % (15.3-44.8); MPV 9.3 fL (7.6-11.3); Monocytes % 6.7 % (3.3-12.3); RBC Red Blood Cell Count 4.34 M/uL (4.33-5.43)
--- NOTE | 2018-10-09 15:56 | P.DS ---
Admission Date: 10/04/18 Discharge Date: 10/09/18 Disposition: ROUTINE DISCHARGE Discharge Condition: GOOD Reason for Admission: Atrial fibrillation with rapid ventricular response Consultations: Cardiology Procedures: Cardioversion x3 - Problems (1) Atrial fibrillation status post cardioversion Onset Date: 10/05/18 Status: Acute (2) Atrial fibrillation with rapid ventricular response Onset Date: 10/05/18 Status: Acute (3) CHF (congestive heart failure) Onset Date: 10/05/18 Status: Acute (4) Rotator cuff injury Onset Date: 10/05/18 Status: Acute Brief History of Present Illness: Patient is an 83-year-old gentleman who came into the hospital with atrial fibrillation with rapid ventricular response. He was given a synchronized cardioversion x2 in the emergency room and he converted to a sinus rhythm. When I saw him he had been given medication for sedation and was very lethargic. He was difficult to arouse. He was admitted to ICU for monitoring. I came back and checked on him a few hours later and he was a little more awake. He was following commands but his speech was really garbled. He says he normally talks like this and had bronchitis. He answered a lot of my questions appropriately but some of them were not making sense. He was still pretty sleepy so will reassess him in the morning. Hospital Course: Atrial fibrillation with rapid ventricular response Atrial fibrillation status post cardioversion CHF (congestive heart failure), chronic, diastolic Obesity (BMI 30.0-34.9) lethargy Heavy alcohol usage Patient was admitted to the ICU. Patient status post cardioversion in the ER. Cardiology consulted, an echocardiogram was ordered which was with normal ejection fraction but with dilated atria. He was in normal sinus rhythm, converted to atrial fibrillation again. He was started on sotalol, remained in atrial fibrillation therefore his dosage was increased to 120 mg. Patient remained in atrial fibrillation even with this higher dose. He was then cardioverted with 200 joules again in the ICU. After this, he converted to sinus rhythm. Monitored overnight, remained in normal sinus rhythm and was transferred to the floor. He continued to remain in normal sinus rhythm on the floor. Prior to discharge, he is alert oriented x3, hemodynamically stable, in normal sinus rhythm. He was discharged on Betapace 120 mg twice a day and Eliquis. He will be following up with cardiology in 1 week for further management. Neurologically, patient was very lethargic on admission. An MRI was done, which was negative for any acute abnormalities. His lethargy/mentation seemed improved progressively. Patient also has a history of heavy alcohol usage. He remained stable from that point of view, and they did not note any withdrawal symptoms. He did not require any Librium or any other treatment. He was counseled on alcohol cessation. Life was really concerned about patient going home as they live in [address] is in the process of looking for a assisted living for the both of them. She states that her house is equipped to take him as they do have an elevator, an electric chair that takes into his room as well. She would appreciate home health with physical therapy. Home health with physical therapy ordered, social work helped with getting that set up. Vital Signs/Physical Exam: Temp Pulse Resp BP Pulse Ox 97.9 F 57 20 139/71 97 10/09/18 08:00 10/09/18 08:00 10/09/18 08:00 10/09/18 08:00 10/09/18 08:00 General: Alert, In no apparent distress, Oriented x3 Laboratory Data at Discharge: WBC 6.7 K/uL (4.3-10.9) D 10/09/18 13:28 Hgb 14.2 g/dL (13.6-17.9) 10/09/18 13:28 Hct 41.1 % (39.6-49.0) 10/09/18 13:28 Plt Count 220 K/uL (152-406) 10/09/18 13:28 PT 12.0 SECONDS (9.5-12.5) 10/04/18 16:45 INR 1.02 10/04/18 16:45 APTT 33.2 SECONDS (24.3-36.9) 10/04/18 16:45 Sodium 143 mmol/L (136-145) 10/09/18 06:42 Potassium 3.8 mmol/L (3.5-5.1) 10/09/18 06:42 BUN 20 mg/dL (7-18) H 10/09/18 06:42 Creatinine 0.99 mg/dL (0.55-1.3) 10/09/18 06:42 Glucose 87 mg/dL (74-106) 10/09/18 06:42 Phosphorus 3.0 mg/dL (2.5-4.9) 10/07/18 04:58 Magnesium 2.1 mg/dL (1.8-2.4) 10/07/18 04:58 Total Bilirubin 0.6 mg/dL (0.2-1.0) 10/05/18 04:53 AST 20 U/L (15-37) 10/05/18 04:53 ALT 19 U/L (12-78) 10/05/18 04:53 Alkaline Phosphatase 61 U/L (45-117) 10/05/18 04:53 Troponin I 0.04 ng/mL (0.0-0.045) 10/04/18 23:07 Lipase 153 U/L (73-393) 10/04/18 16:45 Home Medications: Aspirin [[place] Aspirin] 81 mg PO DAILY 06/05/16 Atorvastatin Calcium [Lipitor*] 20 mg PO T,TH,S 06/05/16 Bimatoprost [Lumigan Opthalmic Drops*] 1 drop OP BEDTIME 06/05/16 Docusate [Colace Cap*] 250 mg PO BID 06/05/16 Dorzolamide HCl/Timolol Maleat [Dorzolamide-Timolol Eye Drops] 1 drop OP BID Multivitamin [Daily Multiple Vitamin] 1 each PO DAILY 06/05/16 Tramadol HCl [Ultram] 100 mg PO DAILY 06/05/16 Ibuprofen/Diphenhydramine HCl [Advil Pm Liqui-Gels] 2 each PO BEDTIME 10/05/18 Pregabalin [Lyrica*] 100 mg PO BID 10/05/18 Apixaban [Eliquis] 2.5 mg PO BID #60 tablet 10/09/18 Sotalol HCl [Betapace AF] 120 mg PO BID #60 tablet 10/09/18 New Medications: Apixaban [Eliquis] 2.5 mg PO BID #60 tablet Sotalol HCl [Betapace AF] 120 mg PO BID #60 tablet Patient Discharge Instructions: Please follow up with the primary care physician in 1 week. Please follow up with cardiology in the next 1 week. Information provided to you. Home physical therapy ordered. Please return to the ER for worsening symptoms Diet: AHA Activity: Ad columba Followup: Anselmo Harden MD [ACTIVE - CAN ADMIT] - 2-3 Days (Please call the clinic to schedule an appointment) Time spent managing pt's care (in minutes): 55
== END 2018-10-09 15:00 | disposition home health service (06) | DRG 308 ==
LOC: ER 16:03 → ERHOLD 20:02 → 3RD-ICU 22:31 → 4TH 10-08 20:10
PROVIDERS: ADMIT Hospitalist; ATTEND Family Medicine
PROC: 5A2204Z Restoration of Cardiac Rhythm, Single (ICD-10-PCS; principal; 2018-10-04)
PROC: 5A2204Z Restoration of Cardiac Rhythm, Single (ICD-10-PCS; 2018-10-07)
DX: I48.91 Unspecified atrial fibrillation (principal); I50.33 Acute on chronic diastolic (congestive) heart failure; I11.0 Hypertensive heart disease with heart failure; E66.9 Obesity, unspecified; Z68.34 Body mass index [BMI] 34.0-34.9, adult; K59.00 Constipation, unspecified; I35.0 Nonrheumatic aortic (valve) stenosis; Z72.89 Other problems related to lifestyle; R47.1 Dysarthria and anarthria; E78.00 Pure hypercholesterolemia, unspecified; M19.90 Unspecified osteoarthritis, unspecified site; I87.2 Venous insufficiency (chronic) (peripheral); M48.07 Spinal stenosis, lumbosacral region; Z87.891 Personal history of nicotine dependence
CPT/HCPCS: 36415; 70450; 70551; 71045; 80048; 80053; 80076; 82550; 82553; 83605; 83690; 83735; 83880; 84100; 84145; 84439; 84443; 84484; 85025; 85610; 85730; 87040; 87493; 87804; 92960; 93005; 93306; 96365; 96375; 97162; 99285; J0692; J1650; J1940; J2250; J3370; J7030

== ENCOUNTER 2018-10-16 20:34 | Inpatient (IN) | payer OTHER ==
[~2018-10-16 20:34] MED LIST: LIDOCAINE 1% MPF 30 ML VIAL ONE
[2018-10-16] MEDS ORDERED: NA CHLORIDE 0.9% 1,000 ML ONE ×4 (21:21→22:25)
[2018-10-16] MEDS ORDERED: RSI MEDICATION KIT IV ONE (21:28)
[2018-10-16 21:33] LABS: Absolute Lymphocytes (CBC) 1.3 K/uL (0.7-4.9); Absolute Monocytes 0.8 K/uL (0.1-1.3); Absolute Neutrophil 14.1 K/uL (1.8-8.0); Basophils % 0.3 % (0-1.3); Eosinophils % 0.5 % (0-4.4); Hematocrit 48.3 % (39.6-49.0); MPV 9.9 fL (7.6-11.3); RBC Red Blood Cell Count 5.06 M/uL (4.33-5.43)
[2018-10-16 21:35] LABS: Protime INR 1.17
[2018-10-16 21:39] LABS: Magnesium 2.4 mg/dL (1.8-2.4); Potassium 4.6 mmol/L (3.5-5.1); Troponin (Emerg Dept Use Only) 0.04 ng/mL (0.0-0.045)
[2018-10-16] MEDS ORDERED: MIDAZOLAM HCL 2 MG/2 ML INJ ONE ×2 (21:49→22:20)
[2018-10-16] MEDS ORDERED: PROPOFOL 1,000 MG/100 ML VIAL IV ONE (22:25)
[2018-10-16 22:29] LABS: Blood Morphology Comment NOT SEEN (NOT SEEN); Platelet Estimate ADEQ; Urine White Blood Cell Casts OK
[2018-10-16 22:31] LABS: Urine Blood 1+ (NEG); Urine Glucose NEGATIVE (NEG); Urine Protein 2+ (NEG)
[2018-10-16] MEDS ORDERED: D5.45NS W/KCL 20MEQ 1,000 ML IV ONE (23:26)
--- NOTE | 2018-10-17 00:29 | ER ---
Nurse's Notes [facility] Name: Tray Coreas Age: 83 yrs Sex: Male : 1935 Arrival Date: 10/16/2018 Time: 20:41 Bed 3 Private MD: Ventura Romano E Diagnosis: Syncope and collapse;Respiratory arrest Presentation: 10/16 20:41 Presenting complaint: EMS states: EMS GOT A CALL GIVING CPR IN THE PATIENT. rv PATIENT IS AWAKE WHEN EMS ARRIVED. TOLD THE EMS THAT PATIENT WAS EATING ICE CREAM WHEN SUDDENLY BECAME DIAPHORETIC AND/OR APNEA (?). Transition of care: patient was not received from another setting of care. Onset of symptoms was October 16, 2018 at 20:30. Risk Assessment: Do you want to hurt yourself or someone else? Patient reports no desire to harm self or others. Initial Sepsis Screen: Does the patient meet any 2 criteria? No. Patient's initial sepsis screen is negative. Does the patient have a suspected source of infection? No. Patient's initial sepsis screen is negative. Care prior to arrival: None. 20:41 Method Of Arrival: EMS: [facility] 20:41 Acuity: JACOB 3 rv 21:44 Acuity: JACOB 1 aj1 Triage Assessment: 21:03 General: Appears in no apparent distress. Behavior is drowsy. Pain: Denies pain. EENT: rv No signs and/or symptoms were reported regarding the EENT system. Neuro: Level of Consciousness is awake, alert, obeys commands, Oriented to person, place, time, situation. Cardiovascular: Capillary refill < 3 seconds. Respiratory: Airway is patent. GI: No signs and/or symptoms were reported involving the gastrointestinal system. : No signs and/or symptoms were reported regarding the genitourinary system. Derm: Skin is intact. Musculoskeletal: No signs and/or symptoms reported regarding the musculoskeletal system. 21:04 Cardiovascular: Rhythm is atrial fibrillation With PVC's. rv Historical: - Allergies: 21:02 No Known Allergies; rv - Home Meds: 21:02 lisinopril Oral [Active]; Lyrica Oral [Active]; meloxicam Oral [Active]; Tramadol Oral rv [Active]; - PMHx: 21:02 Back pain; Chronic R foot wound; Glaucoma; Hypertension; knee pain; rv - PSHx: 21:02 None; rv - Immunization history:: Adult Immunizations up to date. - Social history:: Smoking status: unknown. - Family history:: not pertinent. - Ebola Screening: : Patient negative for fever greater than or equal to 101.5 degrees Fahrenheit, and additional compatible Ebola Virus Disease symptoms Patient denies exposure to infectious person Patient denies travel to an Ebola-affected area in the 21 days before illness onset. - Hospitalizations: : No recent hospitalization is reported. Screenin:07 Abuse screen: Denies threats or abuse. Denies injuries from another. Nutritional rv screening: No deficits noted. Tuberculosis screening: No symptoms or risk factors identified. Fall Risk None identified. Assessment: 21:07 Reassessment: SEE TRIAGE NOTES. rv 21:20 Reassessment: Patient unresponsive with snoring respirations in CT scan, patient aj1 transported to ER bed 3. Patient is being bagged by Respiratory Therapist. 21:22 Reassessment: Patient woke up for approximately 30 seconds and mumbled something before aj1 passing out again, snoring respirations noted. 21:37 Reassessment: ET tube suctioned by Respiratory Therapist. aj1 21:38 Reassessment: Patient is biting down on ET tube, moving hands. Notified Dr. Garcia who aj1 came to the bedside to evaluate patient. Order received for Versed 2 mg IV. 21:42 Reassessment: Breath sounds equal bilaterally with rhonchi. aj1 21:52 Reassessment: Patient is becoming restless again, moving hands. Dr Garcia at bedside. aj1 Order received to recheck BP and administer an addition 2mg of Versed if patient is not hypotensive. 21:53 Reassessment: BP 162/98 HR 73 RR 14 O2 sat 100% on ventilator. 2mg Versed given. aj1 22:05 Reassessment: Patient is beginning to become restless again. Notified Dr. Garcia. Order aj1 received to give an additional 2mg of Versed. 22:19 Reassessment: Dr Garcia at bedside to place central line. aj1 23:01 Reassessment: Patient and/or family updated on plan of care and expected duration. Pain ea level reassessed. Pt sedated and intubated on vent. remains at bedside. 23:03 Reassessment: Pt blood pressure 99/67, propofol decreased from 15 mcg/kg/min to 10 ea mcg/kg/min, pt tolerating well. Pt remains at bedside. 10/17 00:16 Reassessment: Patient and/or family updated on plan of care and expected duration. Pain ea level reassessed. Pt remains sedated and intubated on vent. Pt remains at bedside. 01:44 Reassessment: Report called to Ivone CAVANAUGH on third floor. Reassessment: Patient and/or ea family updated on plan of care and expected duration. Pain level reassessed. Pt sedated and intubated remains on vent. BPM 14, Tidal volume 550, FiO2: 100%. Pt at bedside. 01:55 Reassessment: Pt admitted to ICU via stretcher, per nurse and tech. Respiratory at ea bedside. Pt remains sedated and intubated on vent. Pt accompanied by . Vital Signs: 10/16 21:05 BP 138 / 78; Pulse 66; Resp 15; Temp 97.8(O); Pulse Ox 96% on R/A; Weight 90.72 kg; rv 21:20 BP 180 / 103; Pulse 81; Resp 21; Pulse Ox 94% on BVM; aj1 21:53 BP 162 / 98; Pulse 73; Resp 14; Pulse Ox 100% on ETT vent; aj1 22:05 BP 141 / 62; Pulse 70; Resp 14; Pulse Ox 100% on ETT vent; aj1 22:15 BP 141 / 62; Pulse 69; Resp 16; Pulse Ox 99% on ETT vent; tl2 22:30 BP 152 / 52; Pulse 71; Resp 16; Pulse Ox 100% on ETT vent; tl2 22:45 BP 105 / 61; Pulse 65; Resp 16; Pulse Ox 100% on ETT vent; tl2 23:00 BP 99 / 67; Pulse 63; Resp 18; Pulse Ox 99% on ETT vent; ea 23:15 BP 113 / 76; Pulse 62; Resp 14; Pulse Ox 99% on ETT vent; ea 23:30 BP 110 / 58; Pulse 61; Resp 14; Pulse Ox 99% on ETT vent; ea 10/17 00:16 BP 103 / 64; Pulse 59; Resp 14; Pulse Ox 99% on ETT vent; tl2 00:30 BP 102 / 64; Pulse 60; Resp 16; Pulse Ox 99% on ETT vent; tl2 00:45 BP 112 / 71; Pulse 59; Resp 16; Pulse Ox 99% on ETT vent; tl2 01:07 BP 122 / 68; Pulse 61; Resp 16; Pulse Ox 100% on ETT vent; tl2 ED Course: 10/16 20:41 Patient arrived in ED. rv 20:44 Triage completed. rv 20:46 Musa Garcia MD is Attending Physician. rn 20:50 Inserted saline lock: 20 gauge in right antecubital area, using aseptic technique. rv Blood collected. 21:01 Ventura Romano MD is Private Physician. ds1 21:05 XRAY Chest (1 view) In Process Unspecified. EDMS 21:07 Patient has correct armband on for positive identification. Placed in gown. Bed in low rv position. Call light in reach. Side rails up X2. Adult w/ patient. phototypesetting equipment monitor on. Pulse ox on. NIBP on. 21:07 Patient placed in an exam room, on a stretcher, on monitor and storage bin tender, on pulse oximetry, rv Patient notified of wait time. EKG completed in triage. Results shown to MD. 21:09 Basic Metabolic Panel Sent. rv 21:29 Assisted provider with intubation using 7.5 mm ETT via oral route. ET tube secured at aj1 25cm at the lips. Set up intubation tray. Intubated by Musa Garcia MD Placement verified by CXR, CO2 detector w/ + color change, auscultating bilateral breath sounds. 21:41 Rasheed cath inserted, using sterile technique, 16 Fr., by id, balloon inflated, returned rv clear yellow urine. Patient tolerated well. 21:47 Inserted saline lock: 20 gauge in left hand, using aseptic technique. rv 22:06 NGT: inserted 16 Fr. via left nare. verified placement of air over stomach, to aj1 intermittent suction. Returned gastric contents. 23:01 Halima Davis, MAO is Primary Nurse. ea 10/17 00:28 Del Diaz MD is Hospitalizing Provider. rn 01:47 Patient admitted, IV remains in place. ea Administered Medications: 10/16 21:22 Drug: NS 0.9% 500 ml Route: IV; Rate: bolus; Site: right antecubital; aj1 22:30 Follow up: Response: No adverse reaction; IV Status: Completed infusion; IV Intake: ea 500ml 21:22 Drug: NS 0.9% 500 ml Route: IV; Rate: bolus; Site: right antecubital; aj1 23:15 Follow up: Response: No adverse reaction; IV Status: Completed infusion; IV Intake: ea 500ml 21:23 Drug: Etomidate 20 mg Route: IVP; Site: right antecubital; aj1 10/17 02:24 Follow up: Response: No adverse reaction; No adverse reaction, sedated ea 10/16 21:23 Drug: Succinylcholine 100 mg Route: IVP; Site: right antecubital; aj1 21:24 Follow up: Response: No adverse reaction ea 21:38 Drug: Versed 2 mg Route: IVP; Site: right antecubital; aj1 21:40 Follow up: Response: No adverse reaction ea 21:53 Drug: Versed 2 mg Route: IVP; Site: right antecubital; aj1 22:00 Follow up: Response: No adverse reaction; No adverse reaction, sedated ea 22:05 Drug: Versed 2 mg Route: IVP; Site: right antecubital; aj1 22:40 Follow up: Response: No adverse reaction; Other; sedated ea 22:30 Drug: Propofol 5 mcg/kg/min Route: IV; Rate: calculated rate; Site: right femoral; tl2 22:38 Drug: NS 0.9% 500 ml Route: IV; Rate: bolus; Site: left antecubital; tl2 23:50 Follow up: Response: No adverse reaction; IV Status: Completed infusion; IV Intake: ea 500ml 22:43 Drug: Propofol 15 mcg/kg/min Route: IV; Rate: calculated rate; Site: right femoral; tl2 10/17 01:50 Follow up: Response: No adverse reaction; IV Status: Infusion continued upon admission ea 10/16 23:20 Drug: D5-1/2 NS with KCl 20 mEq/L 1000 ml Route: IV; Rate: 100 ml/hr; Site: right tl2 femoral; 10/17 01:52 Follow up: Response: No adverse reaction; IV Status: Infusion continued upon admission ea Intake: 10/16 22:30 IV: 500ml; Total: 500ml. ea 23:15 IV: 500ml; Total: 1000ml. ea 23:50 IV: 500ml; Total: 1500ml. ea Outcome: 10/17 00:29 Decision to Hospitalize by Provider. rn 01:00 Instructed on notified of need for admission, verbalized the understanding of ea instruction. 02:02 Admitted to ICU accompanied by nurse, accompanied by tech, via stretcher, room ICU 1 , ea Report called to Ivone CAVANAUGH 02:02 Condition: stable 02:03 Patient left the ED. ea Signatures: Dispatcher [employer] EDMS Shawna Noble RN RN aj1 Gauri Echols 1 Musa Garcia MD MD rn Knox, Taylor, RN RN tl2 Halima Davis RN RN ea Vicente, Ronaldo RN RN rv Corrections: (The following items were deleted from the chart) 10/16 22:22 21:20 Reassessment: Patient unresponsive with snoring respirations in CT scan. Patient aj1 is being bagged by Respiratory Therapist. aj1 22:22 21:37 Reassessment: ET tube suctions by Respiratory Therapist aj1 aj1 23:27 23:01 Reassessment: Patient and/or family updated on plan of care and expected ea duration. Pain level reassessed. Pt sedated and intubated. remains at bedside ea
--- NOTE | 2018-10-17 00:30 | EDPHYS ---
Physician Documentation [facility] Name: Tray Coreas Age: 83 yrs Sex: Male : 1935 Arrival Date: 10/16/2018 Time: 20:41 Bed 3 Private MD: Ventura Romano E ED Physician Musa Garcia HPI: 10/16 20:51 This 83 yrs old Male presents to ER via EMS with complaints of syncope, post rn CPR. 20:51 The patient has experienced syncope, became unresponsive, collapsed, lost rn consciousness. Onset: The symptoms/episode began/occurred just prior to arrival. Duration: This was a single episode, that lasted 5 minute(s). Associated injury: The patient did not suffer any apparent associated injury. Current symptoms: Currently, the patient is not experiencing any symptoms. The patient has not experienced similar symptoms in the past. Recently admitted to ICU, first episode of Afib with rvr, cardioverted at the time, EMS reports was at home, feeling fine, collapsed, performed CPR for a few minutes, then patient woke up, feels weak and groggy, no seizure like activity. Denies headache/focal neuro complaint/chest pain/sob//abd pain.. Historical: - Allergies: 21:02 No Known Allergies; rv - Home Meds: 21:02 lisinopril Oral [Active]; Lyrica Oral [Active]; meloxicam Oral [Active]; Tramadol Oral rv [Active]; - PMHx: 21:02 Back pain; Chronic R foot wound; Glaucoma; Hypertension; knee pain; rv - PSHx: 21:02 None; rv - Immunization history:: Adult Immunizations up to date. - Social history:: Smoking status: unknown. - Family history:: not pertinent. - Ebola Screening: : Patient negative for fever greater than or equal to 101.5 degrees Fahrenheit, and additional compatible Ebola Virus Disease symptoms Patient denies exposure to infectious person Patient denies travel to an Ebola-affected area in the 21 days before illness onset. - Hospitalizations: : No recent hospitalization is reported. ROS: 20:51 Constitutional: Negative for fever, chills, and weight loss, Eyes: Negative for injury, rn pain, redness, and discharge, Neck: Negative for injury, pain, and swelling, Cardiovascular: Negative for chest pain, palpitations, and edema, Respiratory: Negative for shortness of breath, cough, wheezing, and pleuritic chest pain, Abdomen/GI: Negative for abdominal pain, nausea, vomiting, diarrhea, and constipation, MS/Extremity: Negative for injury and deformity, Skin: Negative for injury, rash, and discoloration, Neuro: Negative for headache, numbness, tingling, and seizure. Exam: 20:51 Constitutional: This is a well developed, well nourished patient who is awake, alert, rn and in no acute distress. Head/Face: Normocephalic, atraumatic. Eyes: Pupils equal round and reactive to light, extra-ocular motions intact. ENT: dry MM Neck: Trachea midline, no thyromegaly or masses palpated, and no cervical lymphadenopathy. Supple, full range of motion without nuchal rigidity, or vertebral point tenderness. No Meningismus. Cardiovascular: Irregular rhythm, normal rate Respiratory: Lungs have equal breath sounds bilaterally, clear to auscultation. No increased work of breathing, no retractions or nasal flaring. Abdomen/GI: soft, non-tender MS/ Extremity: Pulses equal, no cyanosis. Neurovascular intact. Full, normal range of motion. Equal circumference. Neuro: Awake and alert, GCS 15, oriented to person, place, time, and situation. Cranial nerves II-XII grossly intact. Motor strength 5/5 in all extremities. Sensory grossly intact. Cerebellar exam normal Vital Signs: 21:05 BP 138 / 78; Pulse 66; Resp 15; Temp 97.8(O); Pulse Ox 96% on R/A; Weight 90.72 kg; rv 21:20 BP 180 / 103; Pulse 81; Resp 21; Pulse Ox 94% on BVM; aj1 21:53 BP 162 / 98; Pulse 73; Resp 14; Pulse Ox 100% on ETT vent; aj1 22:05 BP 141 / 62; Pulse 70; Resp 14; Pulse Ox 100% on ETT vent; aj1 22:15 BP 141 / 62; Pulse 69; Resp 16; Pulse Ox 99% on ETT vent; tl2 22:30 BP 152 / 52; Pulse 71; Resp 16; Pulse Ox 100% on ETT vent; tl2 22:45 BP 105 / 61; Pulse 65; Resp 16; Pulse Ox 100% on ETT vent; tl2 23:00 BP 99 / 67; Pulse 63; Resp 18; Pulse Ox 99% on ETT vent; ea 23:15 BP 113 / 76; Pulse 62; Resp 14; Pulse Ox 99% on ETT vent; ea 23:30 BP 110 / 58; Pulse 61; Resp 14; Pulse Ox 99% on ETT vent; ea 10/17 00:16 BP 103 / 64; Pulse 59; Resp 14; Pulse Ox 99% on ETT vent; tl2 00:30 BP 102 / 64; Pulse 60; Resp 16; Pulse Ox 99% on ETT vent; tl2 00:45 BP 112 / 71; Pulse 59; Resp 16; Pulse Ox 99% on ETT vent; tl2 01:07 BP 122 / 68; Pulse 61; Resp 16; Pulse Ox 100% on ETT vent; tl2 Procedures: 10/16 21:30 Intubation: Ventilated with 100% NRB prior to procedure. O2 saturation prior to ornamental ironworker helper was 93 %. Intubated orally using # 4 Flory blade with 7.5 mm ETT. was successful on first attempt. Cricoid pressure applied during procedure. Tube secured with ETT lopez at right side of mouth measured 22 cm at teeth. Placement verified by CO2 detector with (+) color change, auscultating bilateral breath sounds, O2 saturation after procedure was 98 %. Patient tolerated well. 22:31 Central Line: the site was prepped with Betadine, in sterile fashion, a triple lumen rn catheter was inserted, in the right femoral vein, in 1 attempts. placement was verified, by blood return, the site was dressed with Tegaderm, using sterile technique, the patient tolerated the procedure, well, White port not withdrawing blood, other 2 ports easy to withdraw blood and flush. Nurse taped and marked port, instructed not to use and pass on info to ICU nurse. MDM: 20:46 Patient medically screened. rn 23:55 Differential Diagnosis: cardiac arrhythmia, seizure, transient ischemic attack, rn vasovagal episode. Data reviewed: vital signs, nurses notes, lab test result(s), EKG, radiologic studies, CT scan, plain films, and as a result, I will admit patient. Counseling: I had a detailed discussion with the patient and/or guardian regarding: the historical points, exam findings, and any diagnostic results supporting the discharge/admit diagnosis, lab results, radiology results, the need for further work-up and treatment in the hospital. Admission orders: after a detailed discussion of the patient's condition and case, the admit orders are written by me. 10/17 00:27 ED course: No further episodes of arrhythmia or episodes, admitted to Dr. Spann to turntable operator.. 00:27 ED course: Pt had second episode in CT scan, syncope and unresponsive, did not lose rn pulse, commercial pest control technician performed chest compressions, when I arrived was unresponsive but had a pulse, moved to room and intubated for airway protection.. 10/16 20:47 Order name: Basic Metabolic Panel rn 10/16 20:47 Order name: CBC with Diff; Complete Time: 22:35 10/16 20:47 Order name: CPK; Complete Time: 21:45 10/16 20:47 Order name: Magnesium; Complete Time: 21:45 10/16 20:47 Order name: Protime (+inr); Complete Time: 21:45 10/16 20:47 Order name: Ptt, Activated; Complete Time: 21:45 10/16 20:47 Order name: Troponin (emerg Dept Use Only); Complete Time: 21:45 10/16 20:47 Order name: Blood Culture Adult (2) 10/16 20:47 Order name: Basic Metabolic Panel; Complete Time: 21:45 EDND 10/16 20:59 Order name: ETOH Level; Complete Time: 22:35 10/16 22:06 Order name: Urine Dipstick--Ancillary (enter results) ar5 10/16 22:29 Order name: CBC Smear Scan; Complete Time: 22:35 EDND 10/16 22:31 Order name: Urine Dipstick-Ancillary; Complete Time: 22:35 EDND 10/17 01:17 Order name: Glucose, Ancillary Testing EDND 10/16 20:47 Order name: CT Head Brain wo Cont rn 10/16 20:47 Order name: EKG; Complete Time: 20:48 rn 10/16 20:47 Order name: Cardiac monitoring; Complete Time: 21:08 10/16 20:47 Order name: EKG - Nurse/Tech; Complete Time: 21:08 10/16 20:47 Order name: XRAY Chest (1 view) rn 10/16 21:45 Order name: XRAY Chest (1 view) rn 10/16 20:47 Order name: IV Saline Lock; Complete Time: 21: rn 10/16 20:47 Order name: Labs collected and sent; Complete Time: 21: rn 10/16 20:47 Order name: NPO; Complete Time: 21: rn 10/16 20:47 Order name: O2 Per Protocol; Complete Time: 21: rn 10/16 20:47 Order name: O2 Sat Monitoring; Complete Time: 21: rn 10/16 20:47 Order name: Urine Dipstick-Ancillary (obtain specimen); Complete Time: 22:58 rn Administered Medications: 10/16 21:22 Drug: NS 0.9% 500 ml Route: IV; Rate: bolus; Site: right antecubital; aj1 22:30 Follow up: Response: No adverse reaction; IV Status: Completed infusion; IV Intake: ea 500ml 21:22 Drug: NS 0.9% 500 ml Route: IV; Rate: bolus; Site: right antecubital; aj1 23:15 Follow up: Response: No adverse reaction; IV Status: Completed infusion; IV Intake: ea 500ml 21: Drug: Etomidate 20 mg Route: IVP; Site: right antecubital; aj1 10/17 02:24 Follow up: Response: No adverse reaction; No adverse reaction, sedated ea 10/16 21:23 Drug: Succinylcholine 100 mg Route: IVP; Site: right antecubital; aj1 21:24 Follow up: Response: No adverse reaction ea 21:38 Drug: Versed 2 mg Route: IVP; Site: right antecubital; aj1 21:40 Follow up: Response: No adverse reaction ea 21:53 Drug: Versed 2 mg Route: IVP; Site: right antecubital; aj1 22:00 Follow up: Response: No adverse reaction; No adverse reaction, sedated ea 22:05 Drug: Versed 2 mg Route: IVP; Site: right antecubital; aj1 22:40 Follow up: Response: No adverse reaction; Other; sedated ea 22:30 Drug: Propofol 5 mcg/kg/min Route: IV; Rate: calculated rate; Site: right femoral; tl2 22:38 Drug: NS 0.9% 500 ml Route: IV; Rate: bolus; Site: left antecubital; tl2 23:50 Follow up: Response: No adverse reaction; IV Status: Completed infusion; IV Intake: ea 500ml 22:43 Drug: Propofol 15 mcg/kg/min Route: IV; Rate: calculated rate; Site: right femoral; 2 10/17 01:50 Follow up: Response: No adverse reaction; IV Status: Infusion continued upon admission ea 10/16 23:20 Drug: D5-1/2 NS with KCl 20 mEq/L 1000 ml Route: IV; Rate: 100 ml/hr; Site: right tl2 femoral; 10/17 01:52 Follow up: Response: No adverse reaction; IV Status: Infusion continued upon admission ea Disposition: 10/17/18 00:29 Hospitalization ordered by Del Diaz for Inpatient Admission. Preliminary diagnosis are Syncope and collapse, Respiratory arrest. - Bed requested for Intensive Care Unit. - Status is Inpatient Admission. ea - Condition is Fair. - Problem is new. - Symptoms have improved. UTI on Admission? No Critical care time excluding procedures: 00:27 Critical care time: Bedside Care: 25 minutes, Consultation: 5 minutes, Family rn Intervention: 5 minutes. Total time: 35 minutes Signatures: Dispatcher [employer] EDMS Shawna Noble RN RN Darleen Gomez RN RN kl Nieto, Roman, MD MD rn Knox, Taylor, RN RN tl2 Halima Davis RN RN ea Vicente, Ronaldo RN RN rv Corrections: (The following items were deleted from the chart) 10/16 22:35 22:31 Central Line: the site was prepped with Betadine, in sterile fashion, a triple rn lumen catheter was inserted, in the right femoral vein, in 1 attempts. placement was verified, by blood return, the site was dressed with Tegaderm, using sterile technique, the patient tolerated the procedure, well, rn 10/17 00:59 00:29 Hospitalization Ordered by Del Diaz MD for Inpatient Admission. Preliminary rn diagnosis is Syncope and collapse. Bed requested for Intensive Care Unit. Status is Inpatient Admission. Condition is Fair. Problem is new. Symptoms have improved. UTI on Admission? No. rn 01:15 00:59 10/17/2018 00:29 Hospitalization Ordered by Del Diaz MD for Inpatient kl Admission. Preliminary diagnosis is Syncope and collapse; Respiratory arrest. Bed requested for Intensive Care Unit. Status is Inpatient Admission. Condition is Fair. Problem is new. Symptoms have improved. UTI on Admission? No. rn 02:03 01:15 10/17/2018 00:29 Hospitalization Ordered by Del Diaz MD for Inpatient ea Admission. Preliminary diagnosis is Syncope and collapse; Respiratory arrest. Bed requested for Intensive Care Unit. Status is Inpatient Admission. Condition is Fair. Problem is new. Symptoms have improved. UTI on Admission? No. kl
--- NOTE | 2018-10-17 01:09 | P.HP ---
Certification for Inpatient Patient admitted to: Inpatient With expected LOS: >2 Midnights Practitioner: I am a practitioner with admitting privileges, knowledge of patient current condition, hospital course, and medical plan of care. Services: Services provided to patient in accordance with Admission requirements found in Title 42 Section 412.3 of the Code of Federal Regulations Patient History Date of Service: 10/17/18 Reason for admission: syncope, respiratory arrest History of Present Illness: Mr Coreas is an 83 years old male with history of HTN, chronic back pain, ademitted about 10 days ago due to A.Fib with RVR, he was started of Sotalol and Eliquis, states his , that since this morning he was not feeling well. He was not hungry as use to. This evening, the patient was at home, when suddenly his listened snoring breathing. She went to check on him and he was unresponsive, with foam in his mouth. She started CPR and called 911. When EMS arrived, the patient was already awake. Then he was transferred to ED. After evaluation, the patient went to CT lab, and he had another syncopal episode. At this time, he had respiratory arrest, but never loss pulse. Annette luciano was called, subsequently the patient was intubated and placed on ventilator machine. Lab work remarkable for leukocytosis, creatinine increased. Allergies No Known Allergies Allergy (Unverified 06/02/16 15:53) Home medications list reviewed: Yes Home Medications: Aspirin [[place] Aspirin] 81 mg PO DAILY 06/05/16 Atorvastatin Calcium [Lipitor*] 20 mg PO T,TH,S 06/05/16 Bimatoprost [Lumigan Opthalmic Drops*] 1 drop OP BEDTIME 06/05/16 Docusate [Colace Cap*] 250 mg PO BID 06/05/16 Dorzolamide HCl/Timolol Maleat [Dorzolamide-Timolol Eye Drops] 1 drop OP BID Multivitamin [Daily Multiple Vitamin] 1 each PO DAILY 06/05/16 Tramadol HCl [Ultram] 100 mg PO DAILY 06/05/16 Ibuprofen/Diphenhydramine HCl [Advil Pm Liqui-Gels] 2 each PO BEDTIME 10/05/18 Pregabalin [Lyrica*] 100 mg PO BID 10/05/18 Apixaban [Eliquis] 2.5 mg PO BID #60 tablet 10/09/18 Sotalol HCl [Betapace AF] 120 mg PO BID #60 tablet 10/09/18 - Past Medical/Surgical History Diabetic: No -: Benign Hypertension -: Hypercholestrolemia -: Obesity -: Osteoarthritis -: Venous Insufficiency -: Epidural Lipomatosis -: Lumbosacral spinal stenosis -: bilateral cataract -: right rotator cuff - Family History Mother -: Stroke, Cancer Sister -: Hypertension, Diabetes - Social History Smoking Status: Former smoker Alcohol use: Yes CD- Drugs: No Caffeine use: Yes Place of Residence: Home Review of Systems 10-point ROS is otherwise unremarkable Physical Examination - Physical Exam General: In no apparent distress, Unresponsive HEENT: Atraumatic, Mucous membr. moist/pink, Sclerae nonicteric Neck: Supple, 2+ carotid pulse no bruit, No LAD, Without JVD or thyroid abnormality Respiratory: Clear to auscultation bilaterally, Normal air movement Cardiovascular: Normal S1 S2, Irregular heart rate/rhythm Gastrointestinal: Normal bowel sounds, No tenderness Musculoskeletal: No tenderness Integumentary: No rashes Neurological: Normal strength at 5/5 x4 extr, Normal tone, Normal affect Lymphatics: No axilla or inguinal lymphadenopathy - Studies Laboratory Data (last 24 hrs) 10/16/18 20:50: PT 13.7 H, INR 1.17, APTT 37.2 H 10/16/18 20:50: WBC 16.3 H D, Hgb 15.9, Hct 48.3 D, Plt Count 256 10/16/18 20:50: Sodium 139, Potassium 4.6, BUN 26 H, Creatinine 1.41 H, Glucose 119 H, Magnesium 2.4 Assessment and Plan - Problems (Diagnosis) (1) Respiratory arrest Current Visit: Yes Status: Acute (2) Syncope Current Visit: Yes Status: Acute Qualifiers: Syncope type: unspecified Qualified Code(s): R55 - Syncope and collapse - Plan The patient will be admitted to the hospital due to syncopal episode associated with respiratory arrest. Etiology is not clear, differential diagnosis iclude malignant arrhytmia, symptomatic bradycardia, asystole, CVA, seizure episode. Pending CT head report. Continue [facility] vent, consult cardiology and pulmonology team. - Advance Directives Does patient have a Living Will: No Does patient have a Durable POA for Healthcare: Yes - Code Status/Comfort Care Code Status Assessed: Yes Code Status: Full Code
[2018-10-17] MEDS ORDERED: ONDANSETRON 4 MG/2 ML VIAL IV PRN (01:43)
[2018-10-17] MEDS: NA CHLORIDE 0.9% 1,000 ML IV SCH ×3 (02:35→21:10)
[2018-10-17] MEDS ORDERED: PROPOFOL 1,000 MG/100 ML VIAL IV PRN (03:26)
[2018-10-17] MEDS ORDERED: HALOPERIDOL LACT 5 MG/ML INJ IV PRN (03:26)
[2018-10-17 05:32] LABS: Absolute Lymphocytes (CBC) 1.3 K/uL (0.7-4.9); Absolute Monocytes 0.9 K/uL (0.1-1.3); Absolute Neutrophil 10.3 K/uL (1.8-8.0); Basophils % 0.3 % (0-1.3); Eosinophils % 0.2 % (0-4.4); Lymphocytes % 10.6 % (15.3-44.8); MPV 9.7 fL (7.6-11.3); Monocytes % 7.1 % (3.3-12.3); RBC Red Blood Cell Count 4.46 M/uL (4.33-5.43)
[2018-10-17 05:59] LABS: Albumin 2.8 g/dL (3.4-5.0); Bilirubin Total 0.7 mg/dL (0.2-1.0); Potassium 4.3 mmol/L (3.5-5.1); Protein, Total 6.2 g/dL (6.4-8.2)
[2018-10-17 06:02] LABS: Magnesium 2.2 mg/dL (1.8-2.4); Troponin I 0.04 ng/mL (0.0-0.045)
--- NOTE | 2018-10-17 06:18 | EKG ---
Test Date: 2018-10-16 Test Time: 20:44:37 Helper Maintenance Cleaning: LMT MEASUREMENT RESULTS: Intervals: Rate: 73 SD: 186 QRSD: 136 QT: 676 QTc: 744 Crosby: P: 45 SD: 186 QRS: -55 T: 157 INTERPRETIVE STATEMENTS: Sinus rhythm with premature ventricular complexes Left axis deviation Right bundle branch block Cannot rule out lateral infarct Abnormal ECG Compared to ECG 10/16/2018 20:43:11 Myocardial infarct finding still present Electronically Signed On 10-17-18 06:18:31 APPLIED MARINE PHYSICS PROFESSOR by Jay Sánchez
--- NOTE | 2018-10-17 06:19 | EKG ---
Test Date: 2018-10-16 Test Time: 20:43:11 Casing Tester: LMT MEASUREMENT RESULTS: Intervals: Rate: 68 [place]: 184 QRSD: 126 QT: 582 QTc: 618 Dowell: P: 37 [place]: 184 QRS: -57 T: 136 INTERPRETIVE STATEMENTS: Normal sinus rhythm Left axis deviation Right bundle branch block Possible Lateral infarct, age undetermined Abnormal ECG Compared to ECG 10/07/2018 08:29:35 Possible myocardial infarct finding now present Electronically Signed On 10-17-18 06:19:24 HEATING AND BLENDING SUPERVISOR by Jya Sánchez
[2018-10-17] MEDS: FENTANYL CITR 100 MCG/2 ML IV PRN ×2 (06:40→22:42)
[2018-10-17] MEDS ORDERED: AMIODARONE HCL 150 MG in D5W 100 ML IV STA (08:46)
[2018-10-17 08:52] LABS: Arterial Blood Carboxyhemoglob 1.3 % (0-1.5); Blood Gas Oxyhemoglobin 96.9 % (94-97); Blood O2 Saturation 98.9 % (92-98.5)
[2018-10-17] MEDS ORDERED: ENOXAPARIN 40 MG/0.4 ML SQ SCH (09:00)
[2018-10-17] MEDS ORDERED: AMIODARONE HCL 450 MG in D5W 241 ML IV SCH (09:00)
[2018-10-17] MEDS ORDERED: FAMOTIDINE 20 MG/2 ML VIAL IV SCH (09:00)
[2018-10-17] MEDS: LORazepam 2 MG/ML VIAL IV PRN ×3 (09:13→19:13)
--- NOTE | 2018-10-17 09:21 | RAD REPORT ---
EXAM DESCRIPTION: RAD - Abdomen 1 View (KUB) - 10/17/2018 8:20 am CLINICAL HISTORY: Abdomen pain. Constipation FINDINGS: A nasogastric tube is present within the gastric body. Moderate to large amount of stool is present throughout the colon. Couple of loops of small bowel are mildly dilated in a nonspecific fashion. The colon caliber is normal. A line has its tip medial to the lesser trochanter of the right femur. It is uncertain if this repre sents overlying artifact or is vascular in nature. If it is vascular it may be in malalignment
--- NOTE | 2018-10-17 09:35 | RAD REPORT ---
EXAM DESCRIPTION: Carlee Single View10/16/2018 9:06 pm CLINICAL HISTORY: Shortness of breath COMPARISON: October 04, 2018 FINDINGS: The lungs appear clear of acute infiltrate. The heart is mildly enlarged IMPRESSION: No acute abnormalities displayed
--- NOTE | 2018-10-17 09:37 | RAD REPORT ---
EXAM DESCRIPTION: Carlee Single View10/16/2018 9:49 pm CLINICAL HISTORY: Shortness of breath COMPARISON: October 16 FINDINGS: Since the earlier film on endotracheal tube has been inserted with its tip a couple centim eters above the robert. No other change noted
--- NOTE | 2018-10-17 09:49 | P.CNS ---
Date of Consult: 10/17/18 Reason for Consult: Patient on a ventilator Chief Complaint: syncope, respiratory arrest History of Present Illness: Patient is 83 years of age currently on a ventilator in AFib 10 days ago was found unresponsive CPR started admitted here to the ICU urging on a propofol drip has had some arrhythmias the reynolds hemodynamically stable Allergies No Known Allergies Allergy (Unverified 06/02/16 15:53) Home Medications: Aspirin [[place] Aspirin] 81 mg PO DAILY 06/05/16 Atorvastatin Calcium [Lipitor*] 20 mg PO T,TH,S 06/05/16 Bimatoprost [Lumigan Opthalmic Drops*] 1 drop OP BEDTIME 06/05/16 Docusate [Colace Cap*] 250 mg PO BID 06/05/16 Dorzolamide HCl/Timolol Maleat [Dorzolamide-Timolol Eye Drops] 1 drop OP BID Multivitamin [Daily Multiple Vitamin] 1 tab PO DAILY 06/05/16 Tramadol HCl [Ultram] 100 mg PO DAILY 06/05/16 Ibuprofen/Diphenhydramine HCl [Advil Pm Liqui-Gels] 2 cap PO BEDTIME 10/05/18 Pregabalin [Lyrica*] 100 mg PO BID 10/05/18 Apixaban [Eliquis] 2.5 mg PO BID #60 tablet 10/09/18 Sotalol HCl [Betapace AF] 120 mg PO BID #60 tablet 10/09/18 - Past Medical/Surgical History Diabetic: No -: Benign Hypertension -: Hypercholestrolemia -: Obesity -: Osteoarthritis -: Venous Insufficiency -: Epidural Lipomatosis -: Lumbosacral spinal stenosis -: glaucoma -: atrial fibrillation with RVR -: chronic back pain -: bilateral cataract -: right rotator cuff -: cardioversion x3 - Family History Mother Medical History: Stroke, Cancer Sister Medical History: Hypertension, Diabetes - Social History Smoking Status: Unknown if ever smoked Alcohol use: Yes CD- Drugs: No Caffeine use: Yes Place of Residence: Home Review of Systems is unable to be obtained Physical Examination Temp Pulse Resp BP Pulse Ox 97.2 F 73 12 112/54 L 98 10/17/18 02:25 10/17/18 08:00 10/17/18 08:00 10/17/18 08:00 10/17/18 08:00 General: Unresponsive Neck: Supple Respiratory: Clear to auscultation bilaterally Cardiovascular: No edema, Normal S1 S2 Laboratory Data (last 24 hrs) 10/16/18 20:50: PT 13.7 H, INR 1.17, APTT 37.2 H 10/16/18 20:50: WBC 16.3 H D, Hgb 15.9, Hct 48.3 D, Plt Count 256 10/16/18 20:50: Sodium 139, Potassium 4.6, BUN 26 H, Creatinine 1.41 H, Glucose 119 H, Magnesium 2.4 - Problems (1) Respiratory arrest Current Visit: Yes Status: Acute Plan: Patient is 83 years of age admitted with arrhythmia cardiac arrest is currently on a ventilator plan to wean off propofol is creatinine is a little elevated white count is mildly elevated chest x-ray diminished lung volumes patient's blood pressure is little low patient has has some arrhythmia while on a ventilator currently on amiodarone normal left ventricular ejection fraction will plan to wean him off propofol possible wean and extubate if he continues to remain stable probably tomorrow renal function is abnormal continue with IV fluids echocardiogram was normal
[2018-10-17 10:41] LABS: Urine Appearance CLOUDY; Urine Bilirubin NEGATIVE (NEG); Urine Blood 3+ (NEG); Urine Color YELLOW; Urine Glucose NEGATIVE (NEG); Urine Protein TRACE (NEG)
--- NOTE | 2018-10-17 10:41 | P.PN ---
Subjective Date of Service: 10/17/18 Primary Care Provider: Dr. Romano Chief Complaint: syncope, respiratory arrest Subjective: Other (Patient intubated and sedated) Physical Examination - Vital Signs Temperature: 97.2 F Blood Pressure: 112/54 Pulse: 73 Respirations: 12 Pulse Ox (%): 98 - Physical Exam General: Alert, Other (Patient intubated and sedated) HEENT: Atraumatic Neck: Supple Respiratory: Clear to auscultation bilaterally, Normal air movement Cardiovascular: Normal pulses, Regular rate/rhythm Gastrointestinal: Normal bowel sounds Musculoskeletal: No erythema, No tenderness, No warmth Integumentary: No erythema, No warmth, No cyanosis Neurological: Other (Intubated and sedated) - Studies Laboratory Data (last 24 hrs) 10/16/18 20:50: PT 13.7 H, INR 1.17, APTT 37.2 H 10/16/18 20:50: WBC 16.3 H D, Hgb 15.9, Hct 48.3 D, Plt Count 256 10/16/18 20:50: Sodium 139, Potassium 4.6, BUN 26 H, Creatinine 1.41 H, Glucose 119 H, Magnesium 2.4 Medications List Reviewed: Yes Assessment & Plan Discharge Plan: Home Plan to discharge in: Greater than 2 days Physician Review Additional Text: Impression: Syncope with acute respiratory arrest complicated with history of atrial fibrillation on medical therapy likely underlying arrhythmia Hypertension Chronic renal failure stage 3 Hyperlipidemia Chronic pain Plan: Syncope with acute respiratory arrest complicated with history of atrial fibrillation on medical therapy likely underlying arrhythmia: Patient currently intubated and sedated. Cardiology and pulmonology consulted. Patient now on amiodarone. Continue to monitor the patient closely. Await further recommendations from cardiology and pulmonology. I will turn the service over to Dr. Villagran tomorrow. I will go over the plan of care with her. Hypertension: Blood pressure slightly decreased. Patient off sotalol. Will monitor closely. Chronic renal failure stage 3: Continue IV fluids. Will monitor closely. Hyperlipidemia: Hold medication while intubated Chronic pain: Hold medication while intubated. Time Spent Managing Pts Care (In Minutes): 55
[2018-10-17 10:44] LABS: Urine Microscopic Reflex ORDER UMIC
--- NOTE | 2018-10-17 10:55 | CON ---
History Of Present Illness: Mr. Coreas is 83. He came to the hospital by ambulance. He was syncopa l. His started doing chest compressions. He was awake on the ride from the cementer machine applicator into the [facility]. Was talking to the ER people. They sent him to CAT scan and while he was in CAT scan and not on a monitor, he had another arrest. They called a respiratory arrest. He was intubated. They do not indicate he required a shock. They do not record any arrhythmia while he was down there. Now, he i s intubated in the ICU. He is presently on amiodarone drip. He had some runs of ventricular tachyca rdia and none of those have been recorded. I did see 1 run of something that looked like it was pote ntially torsade, so perhaps amiodarone is not a good choice. We should give him lots of magnesium, k eep his magnesium level supratherapeutic and will turn off the amiodarone to keep it on standby and s ee if we can make this arrhythmia go away. In the recent past he was started on Betapace because of a trial fib and he did not have torsades when he was in the hospital for 48 hours after initiating it, but it seems like that at least the possibility that he had torsades from Betapace. We will not give anything that prolongs the QT interval and stop the amiodarone. ELILOTT/DANIELA Voice ID: [id number] Report ID: [id number]
[2018-10-17] MEDS ORDERED: Magnesium Sulfate 2gm IVPB 2 G/50 ML BAG IV ONE (11:00)
[2018-10-17 11:35] LABS: Urine Bacteria >50 /HPF (NONE SEEN); Urine Culture Reflex Order REFLEXED; Urine RBC >50 /HPF (NONE SEEN)
[2018-10-17] MEDS ORDERED: ETOMIDATE 20 MG/10 ML VIAL IV ONE (12:09)
[2018-10-17] MEDS ORDERED: SUCCINYLCHOLINE 20 MG/ML (10 ML) IV ONE (12:09)
--- NOTE | 2018-10-17 12:35 | EKG ---
Test Date: 2018-10-17 Test Time: 05:21:39 Steam Brush Operator: RT-O MEASUREMENT RESULTS: Intervals: Rate: 65 [place]: 194 QRSD: 128 QT: 572 QTc: 594 [place]: P: 46 [place]: 194 QRS: -43 T: 155 INTERPRETIVE STATEMENTS: Normal sinus rhythm Possible Left atrial enlargement Left axis deviation Right bundle branch block T wave abnormality, non specific Abnormal ECG Compared to ECG 10/16/2018 20:44:37 T-wave abnormality now present Ventricular premature complex(es) no longer present Myocardial infarct finding no longer present Electronically Signed On 10-17-18 12:34:22 ZONING ENGINEER by Jay Sánchez
[2018-10-17 13:42] LABS: Magnesium 2.9 mg/dL (1.8-2.4); Troponin I 0.03 ng/mL (0.0-0.045)
[2018-10-17] MEDS ORDERED: MAGNESIUM SULFATE 1 gm IVPB 1 GM/100 ML BAG IV ONE (15:00)
[2018-10-17] MEDS: ENOXAPARIN 100 MG/ML SYR SQ SCH (21:09)
[2018-10-17] MEDS: MIDAZOLAM HCL 2 MG/2 ML INJ IV PRN (21:16)
[2018-10-18] MEDS: LORazepam 2 MG/ML VIAL IV PRN (00:51)
[2018-10-18] MEDS: MIDAZOLAM HCL 2 MG/2 ML INJ IV PRN (03:37)
[2018-10-18 05:06] LABS: Absolute Lymphocytes (CBC) 1.5 K/uL (0.7-4.9); Absolute Monocytes 0.9 K/uL (0.1-1.3); Absolute Neutrophil 10.5 K/uL (1.8-8.0); Basophils % 0.3 % (0-1.3); Eosinophils % 0.2 % (0-4.4); Hematocrit 39.8 % (39.6-49.0); Lymphocytes % 11.4 % (15.3-44.8); MPV 10.2 fL (7.6-11.3); RBC Red Blood Cell Count 4.18 M/uL (4.33-5.43)
[2018-10-18 05:26] LABS: Magnesium 2.7 mg/dL (1.8-2.4); Potassium 3.8 mmol/L (3.5-5.1)
[2018-10-18 05:43] LABS: Arterial Blood Carboxyhemoglob 1.8 % (0-1.5); Blood Gas Oxyhemoglobin 94.4 % (94-97); Blood O2 Saturation 96.6 % (92-98.5)
[2018-10-18] MEDS: FENTANYL CITR 100 MCG/2 ML IV PRN (06:09)
[2018-10-18] MEDS ORDERED: KCL 20 MEQ/100 mL IVPB 20 MEQ/100 ML BAG IV SCH (08:00)
--- NOTE | 2018-10-18 08:31 | RAD REPORT ---
EXAM DESCRIPTION: RAD - Chest Single View - 10/18/2018 7:19 am CLINICAL HISTORY: vented Chest pain. COMPARISON: Abdomen 1 View (KUB) dated 10/17/2018; Chest Single View dated 10/16/2018; Chest Single Vi ew dated 10/16/2018; Chest Single View dated 10/04/2018 FINDINGS: Portable technique limits examination quality. Tip of the ET tube is above the robert. Enteric tube descends in the stomach. The lungs are underinfl ated with vascular crowding. The heart is moderately enlarged in size.
[2018-10-18] MEDS: NA CHLORIDE 0.9% 1,000 ML IV SCH ×3 (08:56→20:45)
[2018-10-18] MEDS: ENOXAPARIN 100 MG/ML SYR SQ SCH ×2 (09:12→21:55)
[2018-10-18] MEDS: FAMOTIDINE 20 MG/2 ML VIAL IV SCH (09:13)
--- NOTE | 2018-10-18 10:43 | RAD REPORT ---
EXAM DESCRIPTION: CT - Head Brain Wo Cont - 10/17/2018 10:46 am CLINICAL HISTORY: 83 years Male, syncope, unresponsive TECHNIQUE: 5 mm axial images were obtained along with 3 mm reformatted coronal and sagittal images. This exam was performed according to our departmental dose-optimization program, which includes autom ated exposure control, adjustment of the mA and/or kV according to patient size and/or use of iterati ve reconstruction technique. COMPARISON: None. FINDINGS: No acute abnormal extracerebral fluid collections are demonstrated. The cortical sulci, ventricles, and cisterns are mildly prominent suggestive of a volume loss. There is moderately severe chronic bilateral periventricular microangiopathic white matter changes.. There are no areas of altered attenuation identified to suggest acute hemorrhage, infarction, or mass lesion. The visualized portions of the paranasal sinuses and mastoid air cells are clear. IMPRESSION: 1. No acute intracranial abnormality. Electronically signed by: Benny German MD 10/16/2018 9:52 PM DIGITAL CONTROLS TECHNICAL OFFICER Due to temporary technical issues with the PACS/Fluency reporting system, reports are being signed by the in house radiologist as a courtesy to ensure prompt reporting. The interpreting radiologist is f ully responsible for the content of the report.
--- NOTE | 2018-10-18 10:53 | PN ---
The patient is having many episodes of torsade attributed to the antiarrhythmic drugs he was on. Now that he has had a time for Betapace and amiodarone to wash out, he has been more than 12 hours withou t torsades. I think we need an EP consultation, I will do that, follow him sometime today. If he is extubated, I think we should do a cardiac cath, probably 2 days from now. The patient went back to andrea bennett, although not as much as before. I think that contributed some also to the arrhythmia and ov erall I think we need to assess Mr. Coreas's coronary arteries, LV in the cathode builder and then see what the motor vehicles inspector think. He has moderate aortic stenosis. Aortic valve area is 1.2 on echo, L VEF 54%. Lot of issues happening simultaneously that contributed to the torsades, but we will not giv e any QT prolonging agents anymore and we will see if he remains stable without antiarrhythmic drugs. ELLIOTT/DANIELA Voice ID: [id number] Report ID: [id number]
--- NOTE | 2018-10-18 12:16 | P.PN ---
Subjective Date of Service: 10/18/18 Primary Care Provider: Dr. Romano Chief Complaint: Patient on a ventilator Condition stable no new changes oxygenation satisfactory on antiarrhythmics Review of Systems is unable to be obtained Physical Examination - Vital Signs Temperature: 98.5 F Blood Pressure: 128/63 Pulse: 69 Respirations: 15 Pulse Ox (%): 96 - Physical Exam General: Alert, Cooperative Respiratory: Clear to auscultation bilaterally Cardiovascular: No edema, Regular rate/rhythm - Studies Medications List Reviewed: Yes Assessment & Plan - Problems (Diagnosis) (1) Respiratory arrest Current Visit: Yes Status: Acute Plan: Patient admitted with respiratory arrest secondary to an arrhythmia seen by Cardiology renal function is stable oxygenation satisfactory liver function tests are normal plan to wean and extubate vital signs stable Physician Review Additional Text: Impression: Syncope with acute respiratory arrest complicated with history of atrial fibrillation on medical therapy likely underlying arrhythmia Hypertension Chronic renal failure stage 3 Hyperlipidemia Chronic pain Plan: Syncope with acute respiratory arrest complicated with history of atrial fibrillation on medical therapy likely underlying arrhythmia: Patient currently intubated and sedated. Cardiology and pulmonology consulted. Patient now on amiodarone. Continue to monitor the patient closely. Await further recommendations from cardiology and pulmonology. I will turn the service over to Dr. Villagran tomorrow. I will go over the plan of care with her. Hypertension: Blood pressure slightly decreased. Patient off sotalol. Will monitor closely. Chronic renal failure stage 3: Continue IV fluids. Will monitor closely. Hyperlipidemia: Hold medication while intubated Chronic pain: Hold medication while intubated.
--- NOTE | 2018-10-18 14:16 | P.PN ---
Subjective Date of Service: 10/18/18 Primary Care Provider: Dr. Romano Chief Complaint: Patient on a ventilator Patient seen and examined at bedside with RN. Chart reviewed. Case discussed with pulmonology cardiology. Currently patient remains intubated. Responding to verbal stimuli. No complaints to offer overnight. Review of Systems 10-point ROS is otherwise unremarkable Physical Examination - Vital Signs Temperature: 98.5 F Blood Pressure: 128/63 Pulse: 69 Respirations: 15 Pulse Ox (%): 96 - Physical Exam General: Mild distress, Other (Intubated) HEENT: Atraumatic, PERRLA, EOMI Neck: Supple, JVD not distended Respiratory: Normal air movement, Expiratory wheezes, Inspiratory wheezes Cardiovascular: Regular rate/rhythm, Normal S1 S2 Gastrointestinal: Normal bowel sounds, No tenderness Musculoskeletal: No tenderness Integumentary: No rashes Neurological: Normal speech, Normal tone, Normal affect Lymphatics: No axilla or inguinal lymphadenopathy - Studies Medications List Reviewed: Yes Assessment And Plan - Current Problems (Diagnosis) (1) Respiratory arrest Current Visit: Yes Status: Acute Plan: Acute respiratory arrest most likely secondary to cardiac arrhythmia -currently intubated. Responding to verbal stimuli. -pulmonology consulted. Recommendations appreciated -will try to wean to BiPAP and nasal cannula as tolerated (2) Cardiac arrhythmia Current Visit: Yes Status: Acute Plan: Patient with Torsades secondary to medication versus alcohol -stops Betapace and amiodarone at this time -cardiology consulted. Appreciated recommendations at this time -echocardiogram and cardiac catheterization pending at this time -will follow up with cardiology for further recommendation -will replace magnesium as well Qualifiers: Arrhythmia type: other cardiac arrhythmia Qualified Code(s): I49.8 - Other specified cardiac arrhythmias (3) Syncope Current Visit: Yes Status: Acute Plan: Syncope episode most likely secondary to cardiac currently -See #2 Qualifiers: Syncope type: unspecified Qualified Code(s): R55 - Syncope and collapse (4) Atrial fibrillation Current Visit: Yes Status: Chronic Plan: Chronic atrial fibrillation -currently only anticoagulated with Lovenox -Betapace and amiodarone on hold secondary to cardiac arrhythmias Qualifiers: Atrial fibrillation type: chronic Qualified Code(s): I48.2 - Chronic atrial fibrillation (5) Benign hypertension Current Visit: No Status: Chronic (6) CHF (congestive heart failure) Onset Date: 10/05/18 Current Visit: No Status: Chronic Qualifiers: Heart failure type: systolic (7) Obesity (BMI 30.0-34.9) Onset Date: 10/05/18 Current Visit: No Status: Chronic - Plan Pending clinical improvement at this time. Will try to wean patient off the mechanical ventilator to nasal cannula. Awaiting cardiac catheterization in 2 days post extubation. Discharge Plan: Other Plan to discharge in: 72 Hours - Code Status/Comfort Care Code Status Assessed: Yes Critical Care: No
--- NOTE | 2018-10-18 18:44 | EKG ---
Test Date: 2018-10-17 Test Time: 17:05:44 Hide Inspector And Sorter: SKIP MEASUREMENT RESULTS: Intervals: Rate: 77 [place]: 178 QRSD: 136 QT: 504 QTc: 570 [place]: P: 42 PA: 178 QRS: -42 T: 129 INTERPRETIVE STATEMENTS: Normal sinus rhythm Left axis deviation Right bundle branch block Abnormal ECG Compared to ECG 10/17/2018 05:21:39 T-wave abnormality no longer present Electronically Signed On 10-18-18 18:43:33 RESEARCH LAB ASSISTANT by Jay Sánchez
--- NOTE | 2018-10-18 18:44 | EKG ---
Test Date: 2018-10-17 Test Time: 17:15:42 Public Affairs Specialist: SKIP MEASUREMENT RESULTS: Intervals: Rate: 119 [place]: 172 QRSD: 130 QT: 566 QTc: 796 [place]: P: 45 [place]: 172 QRS: -40 T: 161 INTERPRETIVE STATEMENTS: Sinus rhythm with transient [place] Left axis deviation Right bundle branch block Non specific T wave abnormality Abnormal ECG Compared to ECG 10/17/2018 17:05:44 T-wave abnormality now present [place] is now present Electronically Signed On 10-18-18 18:43:30 OPERATIONS AND INTELLIGENCE ASSISTANT by Jay Sánchez
--- NOTE | 2018-10-18 18:45 | EKG ---
Test Date: 2018-10-17 Test Time: 05:21:02 Wire Drawing Setter: RT-O MEASUREMENT RESULTS: Intervals: Rate: 66 [place]: 188 QRSD: 130 QT: 556 QTc: 582 [place]: P: 38 [place]: 188 QRS: -46 T: 155 INTERPRETIVE STATEMENTS: Normal sinus rhythm Possible Left atrial enlargement Right bundle branch block Left anterior fascicular block Bifascicular block T wave abnormality, consider lateral ischemia Abnormal ECG Compared to ECG 10/16/2018 20:44:37 T-wave abnormality now present Possible ischemia now present Ventricular premature complex(es) no longer present Myocardial infarct finding no longer present Electronically Signed On 10-18-18 18:44:23 SUPERVISOR COLD ROLLING by Jay Sánchez
[2018-10-19 09:02] LABS: Absolute Lymphocytes (CBC) 1.1 K/uL (0.7-4.9); Absolute Monocytes 0.7 K/uL (0.1-1.3); Absolute Neutrophil 6.9 K/uL (1.8-8.0); Basophils % 0.5 % (0-1.3); Hematocrit 48.4 % (39.6-49.0); Lymphocytes % 12.4 % (15.3-44.8); MPV 10.2 fL (7.6-11.3); Monocytes % 8.3 % (3.3-12.3); RBC Red Blood Cell Count 5.08 M/uL (4.33-5.43)
[2018-10-19 09:06] LABS: Magnesium 2.5 mg/dL (1.8-2.4)
[2018-10-19] MEDS: FAMOTIDINE 20 MG/2 ML VIAL IV SCH (09:09)
[2018-10-19] MEDS: ENOXAPARIN 100 MG/ML SYR SQ SCH ×2 (09:10→21:00)
[2018-10-19] MEDS ORDERED: Magnesium Sulfate 2gm IVPB 2 G/50 ML BAG IV ONE ×2 (09:58→16:00)
--- NOTE | 2018-10-19 13:46 | P.PN ---
Subjective Date of Service: 10/19/18 Primary Care Provider: Dr. Romano Chief Complaint: Patient on a ventilator Patient seen and examined at bedside with RN. Chart reviewed. Case discussed with pulmonology cardiology. The patient is currently extubated and doing well on nasal cannula. Has been having episodes of cardiac arrhythmia this morning. Cardiology has been made aware. Patient given magnesium IV at this time. Awaiting cardiac catheterization this morning. Review of Systems 10-point ROS is otherwise unremarkable Physical Examination - Vital Signs Temperature: 98.8 F Blood Pressure: 130/59 Pulse: 100 Respirations: 32 Pulse Ox (%): 100 - Physical Exam General: Alert, In no apparent distress HEENT: Atraumatic, PERRLA, EOMI Neck: Supple, JVD not distended Respiratory: Normal air movement, Expiratory wheezes, Inspiratory wheezes Cardiovascular: Regular rate/rhythm, Normal S1 S2 Gastrointestinal: Normal bowel sounds, No tenderness Musculoskeletal: No tenderness Integumentary: No rashes Neurological: Normal speech, Normal tone, Normal affect Lymphatics: No axilla or inguinal lymphadenopathy - Studies Medications List Reviewed: Yes Assessment And Plan - Current Problems (Diagnosis) (1) Respiratory arrest Current Visit: Yes Status: Acute Plan: Acute respiratory arrest most likely secondary to cardiac arrhythmia -currently extubated and doing well overall. On nasal cannula -pulmonology consulted. Recommendations appreciated (2) Cardiac arrhythmia Current Visit: Yes Status: Acute Plan: Patient with Torsades secondary to medication versus alcohol. This a.m. patient having episodes of cardiac arrhythmia most likely torsades -stops Betapace and amiodarone at this time -cardiology consulted. Appreciated recommendations at this time -echocardiogram and cardiac catheterization pending at this time -will follow up with cardiology for further recommendation -will replace magnesium as well Qualifiers: Arrhythmia type: other cardiac arrhythmia Qualified Code(s): I49.8 - Other specified cardiac arrhythmias (3) Syncope Current Visit: Yes Status: Acute Plan: Syncope episode most likely secondary to cardiac currently -See #2 Qualifiers: Syncope type: unspecified Qualified Code(s): R55 - Syncope and collapse (4) Atrial fibrillation Current Visit: Yes Status: Chronic Plan: Chronic atrial fibrillation -currently only anticoagulated with Lovenox -Betapace and amiodarone on hold secondary to cardiac arrhythmias Qualifiers: Atrial fibrillation type: chronic Qualified Code(s): I48.2 - Chronic atrial fibrillation (5) Benign hypertension Current Visit: No Status: Chronic (6) CHF (congestive heart failure) Onset Date: 10/05/18 Current Visit: No Status: Chronic Qualifiers: Heart failure type: systolic (7) Obesity (BMI 30.0-34.9) Onset Date: 10/05/18 Current Visit: No Status: Chronic - Plan Pending clinical improvement at this time. Currently on IV magnesium and awaiting cardiac catheterization. Discharge Plan: Home Plan to discharge in: 48 Hours - Code Status/Comfort Care Code Status Assessed: Yes Critical Care: No
[2018-10-19] MEDS ORDERED: HEPA 1000U/500MLS 1,000 UNIT/500 ML BAG IV ONE (14:38)
[2018-10-19] MEDS ORDERED: FENTANYL CITR 100 MCG/2 ML ONE (15:08)
[2018-10-19] MEDS ORDERED: ATROPINE SULF 1 MG/10 ML SYR IV ONE (15:08)
[2018-10-19] MEDS ORDERED: NA CHLORIDE 0.9% 0 ML IV ONE (15:08)
[2018-10-19] MEDS ORDERED: MIDAZOLAM HCL 2 MG/2 ML INJ ONE (15:08)
[2018-10-19] MEDS ORDERED: NA CHLORIDE 0.9% 100 ML IV ONE (15:13)
[2018-10-19] MEDS ORDERED: LIDOCAINE 1% 20 ML MDV ONE (15:27)
[2018-10-19] MEDS: NA CHLORIDE 0.9% 1,000 ML IV SCH ×2 (20:35→23:43)
[2018-10-19] MEDS ORDERED: DIGOXIN 0.25 MG/ML AMP IV ONE (21:14)
[2018-10-20] MEDS ORDERED: DIGOXIN 0.25 MG/ML AMP IV ONE (03:00)
[2018-10-20 05:38] LABS: Absolute Monocytes 0.7 K/uL (0.1-1.3); Absolute Neutrophil 7.1 K/uL (1.8-8.0); Basophils % 0.4 % (0-1.3); Eosinophils % 0.1 % (0-4.4); Hematocrit 37.3 % (39.6-49.0); Lymphocytes % 10.9 % (15.3-44.8); MPV 10.1 fL (7.6-11.3); Monocytes % 7.7 % (3.3-12.3); RBC Red Blood Cell Count 3.86 M/uL (4.33-5.43)
[2018-10-20 05:48] VITALS: BMI 30.2
[2018-10-20 05:49] LABS: Magnesium 2.6 mg/dL (1.8-2.4)
--- NOTE | 2018-10-20 07:00 | PN ---
Date of Progress Note: 10/19/[address] Villagran's service on 10/17/2018. The patient had been followed by Dr. Sánchez for syncope secondary to torsade de pointes. It was thou ght that Betapace that has been used for atrial fibrillation may have caused his prolongation of the QT syndrome. The patient also drinks alcohol significantly. The patient has continued to have short runs of torsade. Has been controlled fairly well with magnesium supplementation that is supratherap eutic. Magnesium today is 2.5. Echocardiogram showed a normal ejection fraction with moderate aorti c stenosis. The case was discussed between Dr. Sánchez and Dr. Ortega and myself and the family. We decided to do a heart catheterization today to rule out coronary artery disease. The patient underst ands the risk and the benefits of the procedure, and he agreed to proceed. REBECCA/DANIELA Voice ID: [id number] Report ID: [id number]
[2018-10-20] MEDS: ENOXAPARIN 100 MG/ML SYR SQ SCH (08:56)
[2018-10-20] MEDS: METOPROLOL TAR 50 MG TAB PO SCH ×2 (08:56→20:58)
[2018-10-20] MEDS: FAMOTIDINE 20 MG/2 ML VIAL IV SCH (08:57)
--- NOTE | 2018-10-20 10:57 | EKG ---
Test Date: 2018-10-19 Test Time: 21:03:44 Band Top Maker: JUSTO MEASUREMENT RESULTS: Intervals: Rate: 143 [place]: QRSD: 140 QT: 340 QTc: 524 [place]: P: [place]: QRS: -37 T: -45 INTERPRETIVE STATEMENTS: Atrial fibrillation with rapid ventricular response Left axis deviation Right bundle branch block Abnormal ECG Compared to ECG 10/17/2018 17:15:42 Sinus rhythm no longer present T-wave abnormality no longer present Electronically Signed On 10-20-18 10:56:32 SUPERVISOR LOADING by Jay Sánchez
--- NOTE | 2018-10-20 12:30 | PN ---
Date of Progress Note: 10/20/2018 Subjective: Mr. Coreas had a heart catheterization yesterday, showing mild coronary artery disease, mild aortic stenosis, not had any further torsade de pointes since yesterday. Magnesium remains norm al. He did go however into atrial fibrillation, received 2 doses of digoxin 0.5 mg each. Heart rate is in 100, blood pressure 150/70, asymptomatic. I discussed the case with Dr. Sánchez and Dr. Ortega . I think the best approach for now is for him to be treated to have rate controlled on beta-mumtaz s and Xarelto. No further intervention at this point. REBECCA/DANIELA Voice ID: [id number] Report ID: [id number]
--- NOTE | 2018-10-20 15:21 | OP ---
Date of Procedure: 10/19/2018 Surgeon: Anselmo Harden MD Director Life: Renato Issa. Total conscious sedation was 45 minutes. Procedures: Left and right heart catheterization, cardiac output measurements, and oxygen saturation measurements. Indication: Aortic stenosis, cardiac arrest. Procedure In Detail: The patient was brought to the laboratory animal caretaker as an inpatient, prepped and draped in the routine sterile fashion, given 2 mg of Versed for IV sedation. A 6-Chinese sheath introduced in t he right common femoral artery. A 7-Chinese sheath introduced in the right common femoral vein. A Sw an-Maurice catheter was introduced in the venous sheath, followed through the right atrium, right ventri omaira, pulmonary artery, and wedge. Cardiac output was measured at about 6 L a minute. Wedge was abou t 22 mmHg. RV pressure and PA pressure were elevated about 50 mmHg. O2 saturations were normal. Sw an-Maurice was pulled out and the left heart catheterization was done using Jael catheter 6-Chinese. The patient was found to have a left dominant system, tortuous coronaries, approximately 40-50% mid L AD lesion. Circumflex was normal. The RCA was nondominant, but normal. Aortic valve was crossed wi th a right Jael catheter. Ejection fraction was normal. There was only a 50 mm gradient across t he left ventricle. This was consistent with mild aortic stenosis. The patient tolerated the procedu re well. There were no complications. Blood Loss: 5 cc. Final Diagnosis: Mild aortic stenosis, mild coronary artery disease. Plan: To continue medical therapy only. We will discuss the possibility of referral for EP study an d possible defibrillator, if the patient continues to have rhythm issues. REBECCA/DANIELA Voice ID: [id number] Report ID: [id number]
--- NOTE | 2018-10-20 17:25 | P.PN ---
Subjective Date of Service: 10/20/18 Primary Care Provider: Dr. Romano Chief Complaint: Patient on a ventilator Patient seen and examined at bedside with RN. Chart reviewed. Case discussed with pulmonology cardiology. Status post cardiac catheterization yesterday. No intervention required. Doing well overall. Had episode of atrial fibrillation with RVR overnight. Was given beta-mumtaz and now doing well overall. Review of Systems 10-point ROS is otherwise unremarkable Physical Examination - Vital Signs Temperature: 97.2 F Blood Pressure: 175/95 Pulse: 76 Respirations: 20 Pulse Ox (%): 97 - Physical Exam General: Alert, In no apparent distress, Mild distress HEENT: Atraumatic, PERRLA, EOMI Neck: Supple, JVD not distended Respiratory: Normal air movement, Expiratory wheezes, Inspiratory wheezes Cardiovascular: Normal S1 S2, Irregular heart rate/rhythm Gastrointestinal: Normal bowel sounds, No tenderness Musculoskeletal: No tenderness Integumentary: No rashes Neurological: Normal speech, Normal tone, Normal affect Lymphatics: No axilla or inguinal lymphadenopathy - Studies Medications List Reviewed: Yes Assessment And Plan - Current Problems (Diagnosis) (1) Respiratory arrest Current Visit: Yes Status: Acute Plan: Acute respiratory arrest most likely secondary to cardiac arrhythmia -currently extubated and doing well overall. On nasal cannula -pulmonology consulted. Recommendations appreciated (2) Cardiac arrhythmia Current Visit: Yes Status: Acute Plan: Patient with Torsades secondary to medication versus alcohol. This a.m. patient having episodes of cardiac arrhythmia most likely torsades -stops Betapace and amiodarone at this time -cardiology consulted. Appreciated recommendations at this time -echocardiogram with no new changes. -Cardiac catheterization done. No surgical intervention needed -currently will continue to replace magnesium at this time. Qualifiers: Arrhythmia type: other cardiac arrhythmia Qualified Code(s): I49.8 - Other specified cardiac arrhythmias (3) Syncope Current Visit: Yes Status: Acute Plan: Syncope episode most likely secondary to cardiac currently -See #2 Qualifiers: Syncope type: unspecified Qualified Code(s): R55 - Syncope and collapse (4) Atrial fibrillation Current Visit: Yes Status: Chronic Plan: Chronic atrial fibrillation -currently only anticoagulated with Lovenox -Betapace and amiodarone on hold secondary to cardiac arrhythmias -1 time beta-mumtaz used to control atrial fibrillation overnight Qualifiers: Atrial fibrillation type: chronic Qualified Code(s): I48.2 - Chronic atrial fibrillation (5) Benign hypertension Current Visit: No Status: Chronic (6) CHF (congestive heart failure) Onset Date: 10/05/18 Current Visit: No Status: Chronic Qualifiers: Heart failure type: systolic (7) Obesity (BMI 30.0-34.9) Onset Date: 10/05/18 Current Visit: No Status: Chronic - Plan Pending clinical improvement at this time. Will transfer the patient to the regular medical surgical floor. Monitor closely. PT OT consulted. Discharge Plan: Other Plan to discharge in: 48 Hours - Code Status/Comfort Care Code Status Assessed: Yes Critical Care: Yes
[2018-10-20] MEDS: NA CHLORIDE 0.9% 1,000 ML IV SCH (17:57)
[2018-10-20] MEDS: RIVAROXABAN 20 MG TABLET PO SCH (17:57)
[2018-10-20] MEDS ORDERED: RIVAROXABAN 15 MG TABLET PO SCH (21:00)
[2018-10-21] MEDS: NA CHLORIDE 0.9% 1,000 ML IV SCH ×3 (02:11→15:43)
[2018-10-21] MEDS: METOPROLOL TAR 50 MG TAB PO SCH ×2 (08:38→20:41)
[2018-10-21] MEDS: FAMOTIDINE 20 MG/2 ML VIAL IV SCH (08:40)
--- NOTE | 2018-10-21 13:44 | P.PN ---
Subjective Date of Service: 10/21/18 Primary Care Provider: Dr. Romano Chief Complaint: Patient on a ventilator Patient seen and examined at bedside with RN. Chart reviewed. Case discussed with pulmonology cardiology. Doing well overall. PT/OT consulted on the case. Pt will most likely benefit from SNF for rehab and close monitoring of his afib and other chronic conditions Review of Systems 10-point ROS is otherwise unremarkable Physical Examination - Vital Signs Temperature: 96.9 F Blood Pressure: 127/80 Pulse: 92 Respirations: 20 Pulse Ox (%): 99 - Physical Exam General: In no apparent distress, Demented HEENT: Atraumatic, PERRLA, EOMI Neck: Supple, JVD not distended Respiratory: Normal air movement, Expiratory wheezes, Inspiratory wheezes Cardiovascular: Regular rate/rhythm, Normal S1 S2 Gastrointestinal: Normal bowel sounds, No tenderness Musculoskeletal: No tenderness Integumentary: No rashes Neurological: Normal speech, Normal tone, Normal affect Lymphatics: No axilla or inguinal lymphadenopathy - Studies Medications List Reviewed: Yes Assessment And Plan - Current Problems (Diagnosis) (1) Respiratory arrest Current Visit: Yes Status: Acute Plan: Acute respiratory arrest most likely secondary to cardiac arrhythmia -currently extubated and doing well overall. On nasal cannula -pulmonology consulted. Recommendations appreciated (2) Cardiac arrhythmia Current Visit: Yes Status: Acute Plan: Patient with Torsades secondary to medication versus alcohol. No further Arrhythmia noted. -stops Betapace and amiodarone at this time -cardiology consulted. Appreciated recommendations at this time -echocardiogram with no new changes. -Cardiac catheterization done. No surgical intervention needed Qualifiers: Arrhythmia type: other cardiac arrhythmia Qualified Code(s): I49.8 - Other specified cardiac arrhythmias (3) Syncope Current Visit: Yes Status: Acute Plan: Syncope episode most likely secondary to cardiac currently -See #2 Qualifiers: Syncope type: unspecified Qualified Code(s): R55 - Syncope and collapse (4) Atrial fibrillation Current Visit: Yes Status: Chronic Plan: Chronic atrial fibrillation -currently only anticoagulated with Lovenox -Betapace and amiodarone on hold secondary to cardiac arrhythmias -1 time beta-mumtaz used to control atrial fibrillation overnight Qualifiers: Atrial fibrillation type: chronic Qualified Code(s): I48.2 - Chronic atrial fibrillation (5) Benign hypertension Current Visit: No Status: Chronic (6) CHF (congestive heart failure) Onset Date: 10/05/18 Current Visit: No Status: Chronic Qualifiers: Heart failure type: systolic (7) Obesity (BMI 30.0-34.9) Onset Date: 10/05/18 Current Visit: No Status: Chronic - Plan Pending clinical improvement at this time. Now working with PT and OT will need to be placed to SNF for further therapy Discharge Plan: Other Plan to discharge in: 48 Hours - Code Status/Comfort Care Code Status Assessed: Yes Physician Review Additional Text: Impression: Syncope with acute respiratory arrest complicated with history of atrial fibrillation on medical therapy likely underlying arrhythmia Hypertension Chronic renal failure stage 3 Hyperlipidemia Chronic pain Plan: Syncope with acute respiratory arrest complicated with history of atrial fibrillation on medical therapy likely underlying arrhythmia: Patient currently intubated and sedated. Cardiology and pulmonology consulted. Patient now on amiodarone. Continue to monitor the patient closely. Await further recommendations from cardiology and pulmonology. I will turn the service over to Dr. Villagran tomorrow. I will go over the plan of care with her. Hypertension: Blood pressure slightly decreased. Patient off sotalol. Will monitor closely. Chronic renal failure stage 3: Continue IV fluids. Will monitor closely. Hyperlipidemia: Hold medication while intubated Chronic pain: Hold medication while intubated. Critical Care: No
[2018-10-21] MEDS: FOLIC ACID 1 MG TABLET PO SCH (17:10)
[2018-10-21] MEDS: CYANOCOBALAMIN 1,000 MCG TAB PO SCH (17:10)
[2018-10-21] MEDS: THIAMINE HCL 100 MG TABLET PO SCH (17:11)
[2018-10-21] MEDS: RIVAROXABAN 20 MG TABLET PO SCH (17:12)
[2018-10-21] MEDS: ACETAMINOPHEN 325 MG TABLET PO PRN (21:12)
[2018-10-22] MEDS: NA CHLORIDE 0.9% 1,000 ML IV SCH (01:29)
--- NOTE | 2018-10-22 08:50 | P.PN ---
Subjective Date of Service: 10/22/18 Primary Care Provider: Dr. Romano Chief Complaint: Patient on a ventilator Patient seen and examined at bedside with RN. Chart reviewed. Case discussed with pulmonology and cardiology. Doing well overall. PT/OT consulted on the case. Pt will most likely benefit from SNF for rehab and close monitoring of his afib and other chronic conditions. has choosen [facility] Review of Systems 10-point ROS is otherwise unremarkable Physical Examination - Vital Signs Temperature: 97.5 F Blood Pressure: 155/94 Pulse: 100 Respirations: 19 Pulse Ox (%): 97 - Physical Exam General: Alert, In no apparent distress HEENT: Atraumatic, PERRLA, EOMI Neck: Supple, JVD not distended Respiratory: Normal air movement, Crackles/rales Cardiovascular: Regular rate/rhythm, Normal S1 S2 Gastrointestinal: Normal bowel sounds, No tenderness Musculoskeletal: No tenderness Integumentary: No rashes Neurological: Normal speech, Normal tone, Normal affect Lymphatics: No axilla or inguinal lymphadenopathy - Studies Microbiology Data (last 24 hrs): 10/16/18 21:10 Blood - Blood Aerobic Blood Culture - Final No growth in 5 days. 10/16/18 21:10 Blood - Blood Anaerobic Blood Culture - Final No growth in 5 days. 10/16/18 20:50 Blood - Blood Aerobic Blood Culture - Final No growth in 5 days. 10/16/18 20:50 Blood - Blood Anaerobic Blood Culture - Final No growth in 5 days. Medications List Reviewed: Yes Assessment And Plan - Current Problems (Diagnosis) (1) Respiratory arrest Current Visit: Yes Status: Acute Plan: Acute respiratory arrest most likely secondary to cardiac arrhythmia -currently extubated and doing well overall. On nasal cannula -pulmonology consulted. Recommendations appreciated (2) Cardiac arrhythmia Current Visit: Yes Status: Acute Plan: Patient with Torsades secondary to medication versus alcohol. No further Arrhythmia noted. -stops Betapace and amiodarone at this time -cardiology consulted. Appreciated recommendations at this time -echocardiogram with no new changes. -Cardiac catheterization done. No surgical intervention needed Qualifiers: Arrhythmia type: other cardiac arrhythmia Qualified Code(s): I49.8 - Other specified cardiac arrhythmias (3) Syncope Current Visit: Yes Status: Acute Plan: Syncope episode most likely secondary to cardiac currently -See #2 Qualifiers: Syncope type: unspecified Qualified Code(s): R55 - Syncope and collapse (4) Atrial fibrillation Current Visit: Yes Status: Chronic Plan: Chronic atrial fibrillation -currently anticoagulated with xarelto -Metoprolol for afib -Betapace and amiodarone on hold secondary to cardiac arrhythmias Qualifiers: Atrial fibrillation type: chronic Qualified Code(s): I48.2 - Chronic atrial fibrillation (5) Benign hypertension Current Visit: No Status: Chronic (6) CHF (congestive heart failure) Onset Date: 10/05/18 Current Visit: No Status: Chronic Qualifiers: Heart failure type: systolic (7) Obesity (BMI 30.0-34.9) Onset Date: 10/05/18 Current Visit: No Status: Chronic - Plan Pending clinical improvement at this time. Now working with PT and OT will need to be placed to SNF for further therapy Discharge Plan: Other Plan to discharge in: Greater than 2 days - Code Status/Comfort Care Code Status Assessed: Yes Critical Care: No
[2018-10-22] MEDS: METOPROLOL TAR 50 MG TAB PO SCH ×2 (09:27→20:03)
[2018-10-22] MEDS: FAMOTIDINE 20 MG/2 ML VIAL IV SCH (09:27)
[2018-10-22] MEDS: THIAMINE HCL 100 MG TABLET PO SCH (09:27)
[2018-10-22] MEDS: FOLIC ACID 1 MG TABLET PO SCH (09:28)
[2018-10-22] MEDS: CYANOCOBALAMIN 1,000 MCG TAB PO SCH (09:28)
[2018-10-22] MEDS: RIVAROXABAN 20 MG TABLET PO SCH (16:15)
[2018-10-22] MEDS: ENSURE HIGH PROTEIN 237 ML CAN PO SCH (20:03)
[2018-10-22] MEDS: ACETAMINOPHEN 325 MG TABLET PO PRN (20:03)
--- NOTE | 2018-10-23 03:36 | PN ---
Date of Progress Note: 10/21/2018 Mr. Coreas had come in with prolonged QT, torsade de pointes secondary to Betapace. This has resolve d. He has not had any further torsade or ventricular tachycardia. He went into atrial fibrillation yesterday, controlled on beta-blockers and Xarelto. Heart rate is in the 80s. No symptoms. Heart c atheterization showed mild aortic stenosis, mild coronary artery disease. Case has been discussed wi th the family and with Dr. Sánchez and Dr. Ortega. I think, at this point, he is definitely not intol erant to medications that prolong his QT. We will not use amiodarone or Betapace. I think rate cont rol with beta-blockers and Xarelto is the way to go. He has improved dramatically from a mental stat us point, asymptomatic, normal blood pressure; and from our standpoint, he can go home on a beta-bloc ker and Xarelto whenever it is okay with admitting physician. We will be happy to see him in the off ice in the near future. REBECCA/DANIELA Voice ID: [id number] Report ID: [id number]
[2018-10-23 06:15] LABS: Absolute Lymphocytes (CBC) 1.2 K/uL (0.7-4.9); Absolute Monocytes 0.5 K/uL (0.1-1.3); Absolute Neutrophil 5.5 K/uL (1.8-8.0); Basophils % 0.9 % (0-1.3); Eosinophils % 2.5 % (0-4.4); Hematocrit 35.6 % (39.6-49.0); Lymphocytes % 15.9 % (15.3-44.8); MPV 9.4 fL (7.6-11.3); Monocytes % 6.7 % (3.3-12.3); RBC Red Blood Cell Count 3.78 M/uL (4.33-5.43)
[2018-10-23 06:28] LABS: ALT/SGPT 31 U/L (12-78); AST/SGOT 29 U/L (15-37); Alkaline Phosphatase 53 U/L (45-117); BUN Blood Urea Nitrogen 22 mg/dL (7-18); Bicarbonate 26 mmol/L (21-32); Bilirubin Total 0.7 mg/dL (0.2-1.0); Glucose Level 85 mg/dL (74-106); Potassium 3.3 mmol/L (3.5-5.1); Protein, Total 5.9 g/dL (6.4-8.2); Sodium Level 145 mmol/L (136-145)
[2018-10-23] MEDS ORDERED: POTASSIUM 25 MEQ EFFERV TAB PO ONE ×2 (06:39→21:06)
[2018-10-23] MEDS: THIAMINE HCL 100 MG TABLET PO SCH (09:22)
[2018-10-23] MEDS: METOPROLOL TAR 50 MG TAB PO SCH ×2 (09:22→21:52)
[2018-10-23] MEDS: FAMOTIDINE 20 MG/2 ML VIAL IV SCH (09:22)
[2018-10-23] MEDS: FOLIC ACID 1 MG TABLET PO SCH (09:23)
[2018-10-23] MEDS: ENSURE HIGH PROTEIN 237 ML CAN PO SCH ×2 (09:23→21:00)
[2018-10-23] MEDS: CYANOCOBALAMIN 1,000 MCG TAB PO SCH (09:23)
--- NOTE | 2018-10-23 09:29 | P.PN ---
Subjective Date of Service: 10/23/18 Primary Care Provider: Dr. Romano Chief Complaint: Patient on a ventilator Patient seen and examined at bedside with RN. Chart reviewed. Case discussed with pulmonology and cardiology. Doing well overall. PT/OT consulted on the case. Pt will most likely benefit from SNF for rehab and close monitoring of his afib and other chronic conditions. has choosen [facility] Review of Systems 10-point ROS is otherwise unremarkable Physical Examination - Vital Signs Temperature: 98.2 F Blood Pressure: 138/102 Pulse: 106 Respirations: 18 Pulse Ox (%): 98 - Physical Exam General: Alert, In no apparent distress, Oriented x2, Demented HEENT: Atraumatic, PERRLA, EOMI Neck: Supple, JVD not distended Respiratory: Clear to auscultation bilaterally, Normal air movement Cardiovascular: Normal S1 S2, Irregular heart rate/rhythm Gastrointestinal: Normal bowel sounds, No tenderness Musculoskeletal: No tenderness Integumentary: No rashes Neurological: Normal tone, Normal affect, Abnormal speech, Abnormal strength, Abnormal tone Lymphatics: No axilla or inguinal lymphadenopathy - Studies Medications List Reviewed: Yes Assessment And Plan - Current Problems (Diagnosis) (1) Respiratory arrest Current Visit: Yes Status: Acute Plan: Acute respiratory arrest most likely secondary to cardiac arrhythmia -currently extubated and doing well overall. On nasal cannula -pulmonology consulted. Recommendations appreciated (2) Cardiac arrhythmia Current Visit: Yes Status: Acute Plan: Patient with Torsades secondary to medication versus alcohol. No further Arrhythmia noted. -stops Betapace and amiodarone at this time -cardiology consulted. Appreciated recommendations at this time -echocardiogram with no new changes. -Cardiac catheterization done. No surgical intervention needed Qualifiers: Arrhythmia type: other cardiac arrhythmia Qualified Code(s): I49.8 - Other specified cardiac arrhythmias (3) Syncope Current Visit: Yes Status: Acute Plan: Syncope episode most likely secondary to cardiac currently -See #2 Qualifiers: Syncope type: unspecified Qualified Code(s): R55 - Syncope and collapse (4) Atrial fibrillation Current Visit: Yes Status: Chronic Plan: Chronic atrial fibrillation -currently anticoagulated with xarelto -Metoprolol for afib rate control -Betapace and amiodarone on hold secondary to cardiac arrhythmias Qualifiers: Atrial fibrillation type: chronic Qualified Code(s): I48.2 - Chronic atrial fibrillation (5) Benign hypertension Current Visit: No Status: Chronic (6) CHF (congestive heart failure) Onset Date: 10/05/18 Current Visit: No Status: Chronic Qualifiers: Heart failure type: systolic (7) Obesity (BMI 30.0-34.9) Onset Date: 10/05/18 Current Visit: No Status: Chronic - Plan Pending clinical improvement at this time. Now working with PT and OT will need to be placed to SNF for further therapy Discharge Plan: Other Plan to discharge in: 48 Hours - Code Status/Comfort Care Code Status Assessed: Yes Critical Care: No
[2018-10-23] MEDS: RIVAROXABAN 20 MG TABLET PO SCH (17:31)
[2018-10-23] MEDS: ACETAMINOPHEN 325 MG TABLET PO PRN (21:52)
[2018-10-24 07:20] LABS: Absolute Lymphocytes (CBC) 1.3 K/uL (0.7-4.9); Absolute Monocytes 0.6 K/uL (0.1-1.3); Absolute Neutrophil 6.4 K/uL (1.8-8.0); Basophils % 0.9 % (0-1.3); Eosinophils % 2.4 % (0-4.4); Hematocrit 36.1 % (39.6-49.0); MPV 8.6 fL (7.6-11.3); Monocytes % 6.5 % (3.3-12.3); RBC Red Blood Cell Count 3.84 M/uL (4.33-5.43)
[2018-10-24 07:35] LABS: ALT/SGPT 32 U/L (12-78); AST/SGOT 29 U/L (15-37); Albumin 2.1 g/dL (3.4-5.0); Alkaline Phosphatase 55 U/L (45-117); BUN Blood Urea Nitrogen 19 mg/dL (7-18); Bicarbonate 27 mmol/L (21-32); Bilirubin Total 0.7 mg/dL (0.2-1.0); Glucose Level 90 mg/dL (74-106); Potassium 3.2 mmol/L (3.5-5.1); Protein, Total 5.9 g/dL (6.4-8.2); Sodium Level 143 mmol/L (136-145)
[2018-10-24] MEDS: CYANOCOBALAMIN 1,000 MCG TAB PO SCH (08:29)
[2018-10-24] MEDS: METOPROLOL TAR 50 MG TAB PO SCH ×2 (08:29→21:10)
[2018-10-24] MEDS: THIAMINE HCL 100 MG TABLET PO SCH (08:29)
[2018-10-24] MEDS: FOLIC ACID 1 MG TABLET PO SCH (08:30)
[2018-10-24] MEDS: FAMOTIDINE 20 MG/2 ML VIAL IV SCH (08:30)
[2018-10-24] MEDS: ENSURE HIGH PROTEIN 237 ML CAN PO SCH ×2 (08:31→21:00)
[2018-10-24] MEDS ORDERED: POTASSIUM CL SA 10 MEQ TAB PO ONE ×2 (11:46→20:39)
--- NOTE | 2018-10-24 12:30 | P.PN ---
Subjective Date of Service: 10/24/18 Primary Care Provider: Dr. Romano Chief Complaint: Patient on a ventilator Patient seen and examined at bedside with RN. Chart reviewed. Case discussed with pulmonology and cardiology. Doing well overall. PT/OT consulted on the case. Pt will most likely benefit from SNF for rehab and close monitoring of his afib and other chronic conditions. has choosen [facility] Review of Systems 10-point ROS is otherwise unremarkable Physical Examination - Vital Signs Temperature: 98.1 F Blood Pressure: 151/100 Pulse: 86 Respirations: 22 Pulse Ox (%): 100 - Physical Exam General: Alert, In no apparent distress HEENT: Atraumatic, PERRLA, EOMI Neck: Supple, JVD not distended Respiratory: Clear to auscultation bilaterally, Normal air movement Cardiovascular: Regular rate/rhythm, Normal S1 S2 Gastrointestinal: Normal bowel sounds, No tenderness Musculoskeletal: No tenderness Integumentary: No rashes Neurological: Normal speech, Normal tone, Normal affect Lymphatics: No axilla or inguinal lymphadenopathy - Studies Medications List Reviewed: Yes Assessment And Plan - Current Problems (Diagnosis) (1) Respiratory arrest Current Visit: Yes Status: Acute Plan: Acute respiratory arrest most likely secondary to cardiac arrhythmia -currently extubated and doing well overall. On nasal cannula -pulmonology consulted. Recommendations appreciated (2) Cardiac arrhythmia Current Visit: Yes Status: Acute Plan: Patient with Torsades secondary to medication versus alcohol. No further Arrhythmia noted. -stops Betapace and amiodarone at this time -cardiology consulted. Appreciated recommendations at this time -echocardiogram with no new changes. -Cardiac catheterization done. No surgical intervention needed Qualifiers: Arrhythmia type: other cardiac arrhythmia Qualified Code(s): I49.8 - Other specified cardiac arrhythmias (3) Syncope Current Visit: Yes Status: Acute Plan: Syncope episode most likely secondary to cardiac currently -See #2 Qualifiers: Syncope type: unspecified Qualified Code(s): R55 - Syncope and collapse (4) Atrial fibrillation Current Visit: Yes Status: Chronic Plan: Chronic atrial fibrillation -currently anticoagulated with xarelto -Metoprolol for afib rate control -Betapace and amiodarone on hold secondary to cardiac arrhythmias Qualifiers: Atrial fibrillation type: chronic Qualified Code(s): I48.2 - Chronic atrial fibrillation (5) Benign hypertension Current Visit: No Status: Chronic (6) CHF (congestive heart failure) Onset Date: 10/05/18 Current Visit: No Status: Chronic Qualifiers: Heart failure type: systolic (7) Obesity (BMI 30.0-34.9) Onset Date: 10/05/18 Current Visit: No Status: Chronic - Plan Pending clinical improvement at this time. Now working with PT and OT. However very slowly full will need to be placed to SNF for further therapy Discharge Plan: Other Plan to discharge in: Greater than 2 days - Code Status/Comfort Care Code Status Assessed: Yes Critical Care: No
[2018-10-24] MEDS: RIVAROXABAN 20 MG TABLET PO SCH (17:13)
[2018-10-24] MEDS: [UNRECOGNIZED DRUG - OTHER] OPTH SCH ×2 (21:00→21:12)
[2018-10-24] MEDS: ACETAMINOPHEN 325 MG TABLET PO PRN (21:09)
[2018-10-24] MEDS: DORZOLAMIDE TIMOLOL EACH EYE SCH (21:12)
[2018-10-25 05:52] LABS: Absolute Lymphocytes (CBC) 1.5 K/uL (0.7-4.9); Absolute Monocytes 0.5 K/uL (0.1-1.3); Eosinophils % 3.1 % (0-4.4); Hematocrit 36.7 % (39.6-49.0); Lymphocytes % 17.8 % (15.3-44.8); MPV 8.7 fL (7.6-11.3); Monocytes % 6.1 % (3.3-12.3); RBC Red Blood Cell Count 3.93 M/uL (4.33-5.43)
[2018-10-25 06:05] LABS: ALT/SGPT 34 U/L (12-78); AST/SGOT 26 U/L (15-37); Albumin 2.2 g/dL (3.4-5.0); Alkaline Phosphatase 55 U/L (45-117); BUN Blood Urea Nitrogen 20 mg/dL (7-18); Bicarbonate 28 mmol/L (21-32); Bilirubin Total 0.6 mg/dL (0.2-1.0); Glucose Level 100 mg/dL (74-106); Potassium 3.4 mmol/L (3.5-5.1); Protein, Total 5.9 g/dL (6.4-8.2); Sodium Level 143 mmol/L (136-145)
[2018-10-25] MEDS ORDERED: POTASSIUM 25 MEQ EFFERV TAB PO ONE (07:30)
[2018-10-25] MEDS: THIAMINE HCL 100 MG TABLET PO SCH (08:18)
[2018-10-25] MEDS: CYANOCOBALAMIN 1,000 MCG TAB PO SCH (08:18)
[2018-10-25] MEDS: METOPROLOL TAR 50 MG TAB PO SCH ×2 (08:18→21:11)
[2018-10-25] MEDS: FOLIC ACID 1 MG TABLET PO SCH (08:18)
--- NOTE | 2018-10-25 08:41 | P.PN ---
Subjective Date of Service: 10/25/18 Primary Care Provider: Dr. Romano Chief Complaint: Patient on a ventilator Patient seen and examined at bedside with RN. Chart reviewed. Case discussed with pulmonology and cardiology. Doing well overall. PT/OT consulted on the case. Pt will most likely benefit from SNF for rehab and close monitoring of his afib and other chronic conditions. has choosen [facility] Review of Systems 10-point ROS is otherwise unremarkable Physical Examination - Vital Signs Temperature: 97.9 F Blood Pressure: 131/78 Pulse: 87 Respirations: 20 Pulse Ox (%): 99 - Physical Exam General: Alert, In no apparent distress, Oriented x3, Obese HEENT: Atraumatic, PERRLA, EOMI Neck: Supple, JVD not distended Respiratory: Normal air movement, Expiratory wheezes, Inspiratory wheezes Cardiovascular: Regular rate/rhythm, Normal S1 S2 Gastrointestinal: Normal bowel sounds, Soft and benign, Non-distended, No tenderness Musculoskeletal: No tenderness Integumentary: Rash(es) (In the inguinal Area) Neurological: Normal speech, Normal tone, Normal affect Lymphatics: No axilla or inguinal lymphadenopathy External genitalia: Other (Diaper Rash Noted in the Inguinal Area) - Studies Medications List Reviewed: Yes Assessment And Plan - Current Problems (Diagnosis) (1) Respiratory arrest Current Visit: Yes Status: Resolved Plan: Acute respiratory arrest most likely secondary to cardiac arrhythmia. Now resolved -currently extubated and doing well overall. On nasal cannula -pulmonology consulted. Recommendations appreciated (2) Cardiac arrhythmia Current Visit: Yes Status: Resolved Plan: Patient with Torsades secondary to medication versus alcohol. No further Arrhythmia noted. -stops Betapace and amiodarone at this time -cardiology consulted. Appreciated recommendations at this time -echocardiogram with no new changes. -Cardiac catheterization done. No surgical intervention needed Qualifiers: Arrhythmia type: other cardiac arrhythmia Qualified Code(s): I49.8 - Other specified cardiac arrhythmias (3) Syncope Current Visit: Yes Status: Acute Plan: Syncope episode most likely secondary to cardiac currently -See #2 -PT consulted. Pt participating in Therapy -Awaiting SNF placement Qualifiers: Syncope type: unspecified Qualified Code(s): R55 - Syncope and collapse (4) Atrial fibrillation Current Visit: Yes Status: Chronic Plan: Chronic atrial fibrillation -currently anticoagulated with xarelto -Metoprolol for afib rate control -Betapace and amiodarone on hold secondary to cardiac arrhythmias Qualifiers: Atrial fibrillation type: chronic Qualified Code(s): I48.2 - Chronic atrial fibrillation (5) Benign hypertension Current Visit: No Status: Chronic (6) CHF (congestive heart failure) Onset Date: 10/05/18 Current Visit: No Status: Chronic Qualifiers: Heart failure type: systolic (7) Obesity (BMI 30.0-34.9) Onset Date: 10/05/18 Current Visit: No Status: Chronic - Plan Pending clinical improvement at this time. Now working with PT and OT. Will need to be placed to SNF for further therapy Discharge Plan: Other Plan to discharge in: 48 Hours - Code Status/Comfort Care Code Status Assessed: Yes Critical Care: No
[2018-10-25] MEDS: ENSURE HIGH PROTEIN 237 ML CAN PO SCH ×2 (08:47→21:00)
[2018-10-25] MEDS: DORZOLAMIDE TIMOLOL EACH EYE SCH ×2 (08:58→21:00)
[2018-10-25] MEDS: RIVAROXABAN 20 MG TABLET PO SCH (16:56)
[2018-10-25] MEDS ORDERED: POTASSIUM CL SA 10 MEQ TAB PO ONE (17:00)
[2018-10-25] MEDS: NYSTATIN OINT 15 GM TUBE TOP SCH (21:00)
[2018-10-25] MEDS: [UNRECOGNIZED DRUG - OTHER] OPTH SCH (21:00)
[2018-10-25] MEDS: ACETAMINOPHEN 325 MG TABLET PO PRN (21:10)
[2018-10-25] MEDS: ZINC OXIDE 40% 30 GM TUBE TOP SCH (21:12)
[2018-10-26 06:32] LABS: Magnesium 1.9 mg/dL (1.8-2.4); Potassium 4.1 mmol/L (3.5-5.1)
[2018-10-26] MEDS: ZINC OXIDE 40% 30 GM TUBE TOP SCH ×2 (08:31→22:28)
[2018-10-26] MEDS: DORZOLAMIDE TIMOLOL EACH EYE SCH ×2 (08:31→22:31)
[2018-10-26] MEDS: NYSTATIN OINT 15 GM TUBE TOP SCH ×2 (08:32→22:29)
[2018-10-26] MEDS: FOLIC ACID 1 MG TABLET PO SCH (08:33)
[2018-10-26] MEDS: THIAMINE HCL 100 MG TABLET PO SCH (08:33)
[2018-10-26] MEDS: METOPROLOL TAR 50 MG TAB PO SCH ×2 (08:34→22:30)
[2018-10-26] MEDS: CYANOCOBALAMIN 1,000 MCG TAB PO SCH (08:34)
[2018-10-26] MEDS: ENSURE HIGH PROTEIN 237 ML CAN PO SCH ×2 (08:35→22:30)
--- NOTE | 2018-10-26 14:38 | EEG ---
CHART: [id number] TEST ID#: [id number] DATE OF STUDY: 10/21/2018 THE EEG WAS RECORDED PORTABLE IN THE PATIENTS ROOM ON A 17 CHANNEL MACHINE. ELECTRODES WERE APPLIED IN THE USUAL MANNER USING THE INTERNATIONAL 10-20 SYSTEM. THE WAKING BACKGROUND RHYTHM IN THIS RECORD CONSISTS OF FAIRLY WELL DEVELOPED AND FAIRLY WELL ORGANIZED WAVES OF 7-8.0 HZ., MAXIMAL IN THE POSTERIOR HEAD REGIONS WHICH ATTENUATE NORMALLY WITH EYE OPENING. LOW TO MODERATE VOLTAGE 1.5-3 HZ ACTIVITY IS EXPRESSED IN THE FRONTAL REGIONS. THERE ARE NO FOCAL OR LATERALIZING FEATURES. NO EPILEPTIFORM ACTIVITY APPEARS. SLEEP DID NOT OCCUR. HYPERVENTILATION WAS NOT PERFORMED. PHOTIC STIMULATION PRODUCED NO DRIVING BILATERALLY. IMPRESSION: THIS IS A MILDLY ABNORMAL EEG DUE TO A MILDLY SLOW BACKGROUND. THIS IS NON-SPECIFIC FINDING INDICATING THE PRESENCE OF A MILD DIFFUSE DISTURBANCE IN CEREBRAL FUNCTION.
--- NOTE | 2018-10-26 15:31 | RAD REPORT ---
EXAM DESCRIPTION: RAD - Knee Right 2 View - 10/26/2018 3:25 pm CLINICAL HISTORY: Right knee swelling FINDINGS: Mild moderate osteoarthritis. Chondrocalcinosis. A large joint effusion is suspected. No fracture or dislocation seen
[2018-10-26] MEDS: RIVAROXABAN 20 MG TABLET PO SCH (17:39)
[2018-10-26] MEDS ORDERED: TRAZODONE 50 MG TABLET PO PRN (22:24)
[2018-10-26] MEDS: ACETAMINOPHEN 325 MG TABLET PO PRN (22:29)
[2018-10-26] MEDS: [UNRECOGNIZED DRUG - OTHER] OPTH SCH (22:31)
--- NOTE | 2018-10-27 04:13 | DS ---
Date of Discharge: 10/26/2018 Consultants: Dr. Harden, Cardiology; Dr. Esparza with Pulmonology; Dr. Sánchez with Cardiology. Procedures: On 10/20/2018, left and right heart catheterization, cardiac output measurement, and oxygen saturation measurements. Final Diagnoses: Mild aortic stenosis, mild coronary artery disease, medical therapy only. Admitting Diagnoses: 1. Respiratory arrest. 2. Syncope. 3. Afib w RVR, chronic 4. Arrythmia: Torsades 5. Obesity BMI >30 6. CAD, [place] artery, [place] heart without angina 7. Alcohol abuse Hospital Course: The patient is an 83-year-old male who has atrial fibrillation , on sotalol and Eliquis, discharged 10 days ago from this admission, who came in with syncopal episode. The patient also had subsequent respiratory arrest while in the hospital, had to be intubated. The patient was seen by Dr. Esparza with Pulmonology, who manages the patient's ventilator. Cardiology was also consulted. The patient did have a heart catheterization with mild coronary artery disease and aortic stenosis found. The patient's sotalol was discontinued. He was started on beta-blockers instead. He seemed to have possibly had torsade from Betapace. The patient's amiodarone was also discontinued. He was on the amiodarone drip post intubation. The patient did have some runs of ventricular tachycardia. The patient's electrolytes were corrected. He was given magnesium. The patient overall did well after the heart catheterization and was able to be extubated. The patient was then feeling weak and required physical therapy and occupational therapy and was referred to retirement facility. The patient did not have any further recurrence of cardiac arrhythmias. The patient is dependent on alcohol and may have had arrhythmia related to that. He was started on vitamin B1 and folate. He was counseled extensively. No further syncopal episodes. The patient remains in atrial fibrillation. He will be on beta-blockers and Xarelto. The patient was then cleared for discharge from senior telecommunications consultant's standpoint including Cardiology and Pulmonology. The patient was then transferred to [facility] in a stable condition. Medications: List reviewed. Activity: Fall precautions. Diet: Low-sodium, fluid-restricted diet. Followup: Follow up with primary care physician in 2-3 days. Follow up with cracker and cookie machine operator, Dr. Harden, in 2 weeks. Return to ER for worsening condition. Physical Examination: General: Awake, alert, and oriented x3 elderly male, obese. CV: S1, S2. Irregularly irregular. Peripheral pulses present. Respiratory: Moving air well bilaterally. No wheezing. Gastrointestinal: Abdomen is soft, nontender, nondistended. Positive bowel sounds. Extremities: No clubbing, cyanosis, edema. Neurologic: Nonfocal. Code Status: Full code. Total time spent discharging the patient was 41 minutes. ADDENDUM: Patient found to have large right knee effusion. DC held for orthopedic evaluation. /DANIELA Voice ID: [id number] Report ID: [id number]
[2018-10-27] MEDS: ACETAMINOPHEN 325 MG TABLET PO PRN (04:25)
[2018-10-27] MEDS: NYSTATIN OINT 15 GM TUBE TOP SCH (08:31)
[2018-10-27] MEDS: ZINC OXIDE 40% 30 GM TUBE TOP SCH (08:33)
[2018-10-27] MEDS: DORZOLAMIDE TIMOLOL EACH EYE SCH (08:33)
[2018-10-27] MEDS: FOLIC ACID 1 MG TABLET PO SCH (08:34)
[2018-10-27] MEDS: METOPROLOL TAR 50 MG TAB PO SCH (08:34)
[2018-10-27] MEDS: THIAMINE HCL 100 MG TABLET PO SCH (08:34)
[2018-10-27] MEDS: ENSURE HIGH PROTEIN 237 ML CAN PO SCH (08:34)
[2018-10-27] MEDS: CYANOCOBALAMIN 1,000 MCG TAB PO SCH (08:35)
[2018-10-27 08:57] VITALS: O2SAT 95
--- NOTE | 2018-10-27 17:07 | RAD REPORT ---
EXAM DESCRIPTION: Sophia Rodriguez Cont10/27/2018 3:25 pm CLINICAL HISTORY: Right knee pain COMPARISON: None. TECHNIQUE: Axial, sagittal and coronal magnetic resonance imaging of the right knee was obtained. FINDINGS: Lateral joint space narrowing is present. The lateral meniscus is extruded laterally. Sign al is present within the anterior horn of the lateral meniscus consistent with a tear. Degenerative s ignal is seen within the medial meniscus. The ACL and PCL are intact. The medial and the lateral collateral ligaments appear normal. The patellar retinacula are intact. Mild area of increased signal is present within the patellar tendon near its insertion with the poll[place] la. Signal is present within the distal quadriceps tendon as well as the proximal patellar tendon which d oes not reach the full thickness. A large joint effusion is present with suprapatellar plica . IMPRESSION: Large joint effusion Signal within the distal quadriceps tendon and proximal patellar tendon probably representing partial tears Lateral meniscal tear
--- NOTE | 2018-10-27 17:59 | PN ---
Date of Progress Note: 10/27/2018 Subjective: The patient is seen and examined. Chart reviewed and case discussed with RN and Dr. Kvng ely. The patient states his swelling has improved slightly with wrapping and conservative management w ith ice and elevation. The patient is pending MRI recommended by Orthopedics. Medications: List reviewed. Physical Examination: Vital Signs: Temperature 97.7, heart rate 89, blood pressure 100/65, respirations 18, O2 95% on room air. General: Awake, alert, oriented x3. Elderly male, obese, no acute distress. Some minimal pain. CV: S1, S2, irregularly irregular. Peripheral pulses present. Respiratory: Moving air well bilaterally. No wheezing. Gastrointestinal: Abdomen is soft, nontender, nondistended. Positive bowel sounds. Extremities: No clubbing, cyanosis, or edema. Musculoskeletal: Right knee edema. Decreased range of motion. Unable to fully extend his leg, tend erness to palpation. Neurologic: Nonfocal. Laboratory Data: Pending. Assessment And Plan: An 83-year-old male with: 1.Respiratory arrest. 2.Syncope. 3.Atrial fibrillation. 4.Cardiac arrhythmia, likely torsades due to medication versus alcohol. 5.Congestive heart failure, systolic dysfunction. 6.Obesity, BMI greater than 30. 7.Alcohol dependence. 8.Right knee effusion, large. Orthopedics does not recommend any drainage at this time. Plan: Follow up with MRI of the knee. Discharge if MRI is as expected. /DANIELA Voice ID: [id number] Report ID: [id number]
[2018-10-27] MEDS: RIVAROXABAN 20 MG TABLET PO SCH (18:04)
[2018-10-27 20:45] VITALS: BP 117/71; TEMP 99
--- NOTE | 2018-10-28 01:27 | CON ---
Date of Consultation: 10/27/2018 Reason For Consultation: Right knee pain and swelling. History Of Present Illness: Tray is an 83-year-old male who presented to the ER on October 16 9, with a history of a syncopal episode as well as arrhythmia. He has history of hypertension, back pain, and atrial fibrillation. En route to the ER and also in the CT scanning, the patient was noted to have respiratory arrest. He was intubated and admitted to the ICU. He was subsequently extubate d and stabilized and transferred to the floor. After transfer to the floor, Physical Therapy was con sulted to aid with mobilization. The patient was noted to have swelling of his right knee as well as pain and I was consulted for further evaluation and treatment. The patient reports history of osteo arthritis in both of his knee with his left worse than his right knee. He does report history of eff usions in the past. He is started on Eliquis within the past month secondary to his atrial fibrillat ion. The patient and his deny any particular trauma to the knee, but does report difficulty wit h ambulating with physical therapy. Review of Systems: As above, otherwise negative. Past Medical History: Includes hypertension, hypercholesterolemia, osteoarthritis, atrial fibrillati on. Past Surgical History: Includes cataract surgery, right rotator cuff surgery. Medications: Aspirin, atorvastatin, Lumigan, Colace, dorzolamide with timolol, tramadol, Lyrica, Alma na, sotalol. Family History: Reviewed, noncontributory. Social History: Reports occasional alcohol use. Denies current tobacco use. Lives at home. Physical Examination: General: No apparent distress. HEENT: Normocephalic, atraumatic. Neck: Supple. Cardiovascular: Brisk cap refill to all digits. Chest: Nonlabored breathing. Abdomen: Nondistended. Psychiatric: Responsive to exam. Musculoskeletal: Right lower extremity, the patient has a moderate effusion to his right knee. He d oes have some tenderness to palpation over the effusion. There is no erythema or induration of the k nee. No pain with axial load of the right foot, and range of motion from 10-45 degrees. Pain at ext remes of motion. No ecchymosis or bruising noted about the right knee. X-rays: X-rays of the right knee demonstrate tricompartmental arthritis, however, joint space narrow ing is difficult to assess secondary to the nonweightbearing status of the x-ray. Assessment And Plan: Tray is an 83-year-old male with right knee pain, right knee osteoarthritis, a nd a right knee effusion. The patient denies any particular trauma to the knee; however, he does hav e some tenderness about his patellar tendon. We will order an MRI of his right knee to further evalu ate the patellar tendon and quadriceps tendon. With his history of prior effusions and use of therap eutic anticoagulation, I do not recommend aspiration secondary to risk for further hemarthrosis and i nfection and recommended RICE therapy at this time. He had an Alnozo wraps placed on his right knee. Diego alberts will follow up MRI after this completed later today and if his extensor mechanism is intact, he may be discharged and follow up in my clinic. BABITA/DANIELA Voice ID: [id number] Report ID: [id number]
== END 2018-10-27 21:25 | DRG 208 ==
LOC: ER 20:34 → ERHOLD 10-17 00:55 → 3RD-ICU 10-17 01:50 → 4TH 10-20 15:40
PROVIDERS: ADMIT Internal Medicine; ATTEND Family Medicine
PROC: 5A1945Z Respiratory Ventilation, 24-96 Consecutive Hours (ICD-10-PCS; principal; 2018-10-16)
PROC: 0BH17EZ Insertion of Endotracheal Airway into Trachea, Via Natural or Artificial Opening (ICD-10-PCS; 2018-10-16)
PROC: 5A12012 Performance of Cardiac Output, Single, Manual (ICD-10-PCS; 2018-10-16)
PROC: 02HQ32Z Insertion of Monitoring Device into Right Pulmonary Artery, Percutaneous Approach (ICD-10-PCS; 2018-10-19)
PROC: 4A133B3 Monitoring of Arterial Pressure, Pulmonary, Percutaneous Approach (ICD-10-PCS; 2018-10-19)
PROC: 4A1239Z Monitoring of Cardiac Output, Percutaneous Approach (ICD-10-PCS; 2018-10-19)
PROC: 4A023N7 Measurement of Cardiac Sampling and Pressure, Left Heart, Percutaneous Approach (ICD-10-PCS; 2018-10-19)
PROC: B211YZZ Fluoroscopy of Multiple Coronary Arteries using Other Contrast (ICD-10-PCS; 2018-10-19)
PROC: B215YZZ Fluoroscopy of Left Heart using Other Contrast (ICD-10-PCS; 2018-10-19)
DX: R09.2 Respiratory arrest (principal); I13.0 Hypertensive heart and chronic kidney disease with heart failure and stage 1 through stage 4 chronic kidney disease, or unspecified chronic kidney disease; I50.22 Chronic systolic (congestive) heart failure; E78.00 Pure hypercholesterolemia, unspecified; M19.90 Unspecified osteoarthritis, unspecified site; E66.9 Obesity, unspecified; I10 Essential (primary) hypertension; Z87.891 Personal history of nicotine dependence; R55 Syncope and collapse; N18.3 Chronic kidney disease, stage 3 (moderate); E78.5 Hyperlipidemia, unspecified; I49.8 Other specified cardiac arrhythmias; I48.2 Chronic atrial fibrillation; I25.10 Atherosclerotic heart disease of native coronary artery without angina pectoris; I35.0 Nonrheumatic aortic (valve) stenosis; F10.10 Alcohol abuse, uncomplicated; M25.461 Effusion, right knee; Z68.30 Body mass index [BMI] 30.0-30.9, adult
CPT/HCPCS: 31500; 36415; 51702; 70450; 71045; 74018; 80048; 80053; 80061; 80320; 81003; 81015; 82550; 82805; 82962; 83605; 83735; 84132; 84145; 84484; 85025; 85610; 85730; 87040; 87086; 87088; 92526; 92610; 93005; 93460; 94002; 94003; 95816; 96361; 96365; 96366; 96375; 97110; 97112; 97163; 97165; 97530; 99291; 99292; C1760; C1893; J0282; J0330; J0583; J1160; J1650; J2250; J2704; J3010; J3475; J7030; J7060

== ENCOUNTER 2018-11-17 15:53 | Inpatient (IN) | payer OTHER ==
[2018-11-17] MEDS ORDERED: NA CHLORIDE 0.9% 500 ML ONE (16:53)
[2018-11-17] MEDS ORDERED: MAGNESIUM SULFATE 1 gm IVPB 1 GM/100 ML BAG IV ONE (16:53)
--- NOTE | 2018-11-17 17:05 | RAD REPORT ---
EXAM DESCRIPTION: Carlee Single View11/17/2018 4:55 pm CLINICAL HISTORY: Chest pain COMPARISON: September 2018 FINDINGS: The lungs appear clear of acute infiltrate. The heart is mildly enlarged IMPRESSION: No acute abnormalities displayed
[2018-11-17 17:06] LABS: Protime INR 1.47
[2018-11-17 17:07] LABS: Absolute Monocytes 0.5 K/uL (0.1-1.3); Absolute Neutrophil 4.7 K/uL (1.8-8.0); Basophils % 0.9 % (0-1.3); Eosinophils % 5.7 % (0-4.4); Hematocrit 42.6 % (39.6-49.0); Lymphocytes % 26.6 % (15.3-44.8); MPV 10.3 fL (7.6-11.3); Monocytes % 5.9 % (3.3-12.3); RBC Red Blood Cell Count 4.43 M/uL (4.33-5.43)
[2018-11-17 17:22] LABS: ALT/SGPT 28 U/L (12-78); AST/SGOT 27 U/L (15-37); Albumin 3.4 g/dL (3.4-5.0); Alkaline Phosphatase 102 U/L (45-117); BUN Blood Urea Nitrogen 21 mg/dL (7-18); Bicarbonate 27 mmol/L (21-32); Bilirubin Direct 0.2 mg/dL (0-0.2); Bilirubin Total 0.5 mg/dL (0.2-1.0); Glucose Level 118 mg/dL (74-106); Magnesium 2.2 mg/dL (1.8-2.4); NT PRO-BNP 6955 pg/mL (<450); Potassium 4.9 mmol/L (3.5-5.1); Protein, Total 7.5 g/dL (6.4-8.2); Sodium Level 141 mmol/L (136-145); Troponin (Emerg Dept Use Only) < 0.02 ng/mL (0.0-0.045)
[2018-11-17] MEDS ORDERED: NA CHLORIDE 0.9% 1,000 ML ONE (19:52)
--- NOTE | 2018-11-17 20:19 | EKG ---
Test Date: 2018-11-17 Test Time: 16:12:24 Yoga Teacher: ELIZABETH MEASUREMENT RESULTS: Intervals: Rate: 80 MT: QRSD: 130 QT: 410 QTc: 472 Bend: P: MT: QRS: -51 T: 1 INTERPRETIVE STATEMENTS: Atrial fibrillation Left axis deviation Right bundle branch block Inferior infarct, age undetermined Abnormal ECG Compared to ECG 10/19/2018 21:03:44 Myocardial infarct finding now present Electronically Signed On 11-17-18 20:18:24 CDT by Jay Sánchez
--- NOTE | 2018-11-17 20:21 | ER ---
Nurse's Notes [facility] Name: Tray Coreas Age: 83 yrs Sex: Male : 1935 Arrival Date: 11/17/2018 Time: 15:54 Bed 3 Private MD: Diagnosis: Syncope and collapse Presentation: 11/17 16:13 Presenting complaint: Significant other states: we was at the doctors office and he tw2 just went down. Transition of care: patient was not received from another setting of care. Onset of symptoms was November 17, 2018. Risk Assessment: Do you want to hurt yourself or someone else? Patient reports no desire to harm self or others. Initial Sepsis Screen: Does the patient meet any 2 criteria? No. Patient's initial sepsis screen is negative. Does the patient have a suspected source of infection? No. Patient's initial sepsis screen is negative. Note pts spouse stated he need to use the restroom, pt had 2 staff member assisting pt to toilet, pt unable to stand, additional staff assisted pt to his electric wheelchair, then pt taken to exam room at this time, and 3 staff members helped pt to exam bed at this time. Care prior to arrival: None. 16:13 Method Of Arrival: Wheelchair tw2 16:13 Acuity: JACOB 2 tw2 Triage Assessment: 16:16 General: Appears ill, Behavior is cooperative. Pain: Denies pain. Derm: Skin is pale. tw2 Historical: - Allergies: 16:16 No Known Allergies; tw2 - PMHx: 16:16 Back pain; Chronic R foot wound; Glaucoma; Hypertension; knee pain; Atrial Fib; tw2 - PSHx: 16:16 None; tw2 - Immunization history:: Adult Immunizations. - Social history:: Smoking status: . - Ebola Screening: : Patient denies travel to an Ebola-affected area in the 21 days before illness onset. Screenin:17 Abuse screen: Denies threats or abuse. Nutritional screening: No deficits noted. tw2 Tuberculosis screening: No symptoms or risk factors identified. Fall Risk Secondary diagnosis (15 points) impaired mobility. Assessment: 16:19 General: Appears in no apparent distress. comfortable, ill, Behavior is calm, ca1 cooperative, appropriate for age. Pain: Denies pain. Neuro: Level of Consciousness is awake, alert, obeys commands, Oriented to person, place, time, situation. Cardiovascular: Heart tones S1 S2 present Capillary refill is > 3 seconds Patient's skin is warm and dry. Rhythm is atrial fibrillation. Respiratory: Reports shortness of breath Airway is patent Respiratory effort is even, labored, Respiratory pattern is regular, symmetrical, Breath sounds are clear bilaterally. GI: Abdomen is round non-distended, Bowel sounds present X 4 quads. Abd is soft and non tender X 4 quads. : No deficits noted. No signs and/or symptoms were reported regarding the genitourinary system. EENT: No deficits noted. No signs and/or symptoms were reported regarding the EENT system. Derm: Skin is fragile, is thin, Skin is pink, warm \T\ dry. Musculoskeletal: Circulation, motion, and sensation intact. Capillary refill < 3 seconds. 16:24 Neuro: Reports dizziness, at the doctor's office prior to coming in to the ER, >1hr ago.ca1 16:59 Reassessment: Patient appears in no apparent distress at this time. Patient and/or ph family updated on plan of care and expected duration. Pain level reassessed. Patient is alert, oriented x 3, equal unlabored respirations, skin warm/dry/pink. Pt resting quietly, denies pain, nausea, SOB, or palpitations at this time. 17:45 Reassessment: Patient appears in no apparent distress at this time. No changes from hb previously documented assessment. Patient and/or family updated on plan of care and expected duration. Pain level reassessed. Patient is alert, oriented x 3, equal unlabored respirations, skin warm/dry/pink. 18:45 Reassessment: Patient appears in no apparent distress at this time. No changes from hb previously documented assessment. Patient and/or family updated on plan of care and expected duration. Pain level reassessed. Patient is alert, oriented x 3, equal unlabored respirations, skin warm/dry/pink. 19:44 Reassessment: Patient appears in no apparent distress at this time. No changes from jd3 previously documented assessment. Patient and/or family updated on plan of care and expected duration. Pain level reassessed. Patient is alert, oriented x 3, equal unlabored respirations, skin warm/dry/pink. awaiting orders from provider. nursing staff at bedside. 20:22 Reassessment: Patient appears in no apparent distress at this time. Patient and/or jd3 family updated on plan of care and expected duration. Pain level reassessed. Patient is alert, oriented x 3, equal unlabored respirations, skin warm/dry/pink. awaiting admission orders. 21:11 Reassessment: Patient appears in no apparent distress at this time. Patient and/or cc3 family updated on plan of care and expected duration. Pain level reassessed. Patient is alert, oriented x 3, equal unlabored respirations, skin warm/dry/pink. Room available in 203, called for report but was told that the nurse who will receive will call back. 22:11 Reassessment: Patient appears in no apparent distress at this time. Patient and/or jd3 family updated on plan of care and expected duration. Pain level reassessed. Patient is alert, oriented x 3, equal unlabored respirations, skin warm/dry/pink. Vital Signs: 16:15 BP 103 / 85; Temp 97.7(O); tw2 16:19 BP 103 / 85; Pulse 87; Resp 24; Pulse Ox 88% on R/A; Weight 85.28 kg; Height 5 ft. 11 ca1 in. (180.34 cm); Pain 0/10; 16:29 BP 104 / 81; Pulse 84; Resp 21; Pulse Ox 100% on 2 lpm NC; ca1 16:58 BP 150 / 59; Pulse 102; Resp 14; Pulse Ox 100% on 2 lpm NC; ph 17:30 BP 119 / 85; Pulse 94; Resp 25; Pulse Ox 100% on 2 lpm NC; dh3 18:00 BP 117 / 72; Pulse 105; Resp 18; Pulse Ox 100% on 2 lpm NC; dh3 19:19 BP 111 / 81; Pulse 90; Resp 17; Pulse Ox 99% on 2 lpm NC; hb 19:44 BP 107 / 66; Pulse 91; Resp 20 S; Pulse Ox 100% on NC; mt 20:17 BP 113 / 74; Pulse 94; Resp 20; Pulse Ox 97% on NC; mt 20:22 BP 113 / 74; Pulse 90; Resp 19 S; Pulse Ox 99% on R/A; jd3 21:12 BP 110 / 78; Pulse 93; Resp 21 S; Pulse Ox 100% on 2 lpm NC; cc3 22:11 BP 119 / 77; Pulse 57; Resp 19 S; Pulse Ox 99% on 2 lpm NC; jd3 16:19 Body Mass Index 26.22 (85.28 kg, 180.34 cm) ca1 Vitals: 16:58 Cardiac Rhythm Assessment Irregular. ph ED Course: 15:54 Patient arrived in ED. tw3 16:13 Placed in gown. Bed in low position. Side rails up X2. Adult w/ patient. Cardiac tw2 monitor on. Pulse ox on. Sitter at bedside. Warm blanket given. 16:15 Triage completed. tw2 16:15 Arm band placed on. tw2 16:19 Mauro Canela PA is PHCP. m 16:19 Ventura Magallanes MD is Attending Physician. [facility] 16:19 Neeru Cooper RN is Primary Nurse. ca1 16:19 Inserted saline lock: 22 gauge in right antecubital area, using aseptic technique. ca1 ,using aseptic technique. by Rene Villagomez RN Blood collected. 16:29 EKG done, by ED staff, reviewed by Ventura Magallanes MD. 3 16:50 X-ray completed. Portable x-ray completed in exam room. Patient tolerated procedure ml well. 16:52 XRAY Chest (1 view) In Process Unspecified. EDMS 17:05 Report given to MAO Jones. ca1 17:08 No provider procedures requiring assistance completed. ph 20:21 Reema Olson MD is Hospitalizing Provider. [facility] 22:13 Patient admitted, IV remains in place. jd3 Administered Medications: 16:57 Drug: Magnesium Sulfate 1 grams Route: IVPB; Infused Over: 1 hrs; Site: right ph antecubital; 19:15 Follow up: Response: No adverse reaction; IV Status: Completed infusion; IV Intake: cc3 100ml 19:45 Drug: NS 0.9% 1000 ml Route: IV; Rate: 125 ml/hr; Site: right antecubital; cc3 21:15 Follow up: Response: No adverse reaction; IV Status: Infusion continued upon admission cc3 Intake: 19:15 IV: 100ml; Total: 100ml. cc3 Outcome: 20:21 Decision to Hospitalize by Provider. jmm 22:12 Admitted to Med/surg accompanied by tech, via stretcher, room 203, with chart, Report jd3 called to Report called by Chelo CAVANAUGHmanager safe. 22:12 Condition: stable 22:12 Instructed on the need for admit, Demonstrated understanding of instructions. 22:13 Patient left the ED. jd3 Signatures: Dispatcher [employer] EDMS Mauro Canela PA PA jmm Lopez, Melissa ml Hall, Patricia, RN RN Janice Briones RN RN Svetlana Ruiz RN RN tw2 Magdy, Tracy 3 Ryanne Ramsay ny Hairston, Shwetha formerly [facility], [facility] Hadley Aguirre RN RN jd3 Rebecca Patton 3 Zelda Byrne 3 Neeru Cooper RN RN ca1 Corrections: (The following items were deleted from the chart) 19:46 19:44 Reassessment: Patient appears in no apparent distress at this time. No changes jd3 from previously documented assessment. Patient and/or family updated on plan of care and expected duration. Pain level reassessed. Patient is alert, oriented x 3, equal unlabored respirations, skin warm/dry/pink. awaiting orders from provider. jd3 20:18 19:44 BP 107 / 66; Pulse 91bpm; Resp 20bpm; Spontaneous; Pulse Ox 100% RA; jd3 ny
--- NOTE | 2018-11-17 20:21 | EDPHYS ---
Physician Documentation [facility] Name: Tray Coreas Age: 83 yrs Sex: Male : 1935 Arrival Date: 11/17/2018 Time: 15:54 Bed 3 Private MD: ED Physician Ventura Magallanes HPI: 11/17 16:32 This 83 yrs old Male presents to ER via Wheelchair with complaints of AFIB. jm 16:32 Onset: The symptoms/episode began/occurred acutely, just prior to arrival. This is an m 83 year old male with a history of atrial fibrillation, htn that presents to the ED after the patient had a syncopal episode of a pcp follow up visit. Patient states he felt dizzy. Patient had similar episode 2 weeks prior when admitted to the hospital for arhythmia/ respiratory arrest. Patient currently denies shortness of breath or chest pain. . Historical: - Allergies: 16:16 No Known Allergies; tw2 - PMHx: 16:16 Back pain; Chronic R foot wound; Glaucoma; Hypertension; knee pain; Atrial Fib; tw2 - PSHx: 16:16 None; tw2 - Immunization history:: Adult Immunizations. - Social history:: Smoking status: . - Ebola Screening: : Patient denies travel to an Ebola-affected area in the 21 days before illness onset. ROS: 16:32 Constitutional: Negative for fever, chills, and weight loss, Cardiovascular: Negative jmm for chest pain, palpitations, and edema, Respiratory: Negative for shortness of breath, cough, wheezing, and pleuritic chest pain. 16:32 Neuro: Positive for dizziness. 16:32 All other systems are negative. Exam: 16:32 Constitutional: This is a well developed, well nourished patient who is awake, alert, jmm and in no acute distress. Head/Face: atraumatic. Eyes: EOMI, no conjunctival erythema appreciated ENT: Moist Mucus Membranes Neck: Trachea midline, Supple Chest/axilla: Normal chest wall appearance and motion. Cardiovascular: Regular rate and rhythm. No edema appreciated Respiratory: Normal respirations, no respiratory distress appreciated 16:32 Back: Normal ROM Skin: General appearance color normal MS/ Extremity: Moves all extremities, no obvious deformities appreciated, no edema noted to the lower extremities Psych: Behavior is normal, Mood is normal, Patient is cooperative and pleasant 16:32 Cardiovascular: Rate: normal, Rhythm: regular. 16:32 Respiratory: the patient does not display signs of respiratory distress, Respirations: normal, Breath sounds: bronchial sounds, that are moderate, are scattered. 16:32 Neuro: Orientation: is normal, Mentation: is normal, Memory: is normal. Vital Signs: 16:15 BP 103 / 85; Temp 97.7(O); tw2 16:19 BP 103 / 85; Pulse 87; Resp 24; Pulse Ox 88% on R/A; Weight 85.28 kg; Height 5 ft. 11 ca1 in. (180.34 cm); Pain 0/10; 16:29 BP 104 / 81; Pulse 84; Resp 21; Pulse Ox 100% on 2 lpm NC; ca1 16:58 BP 150 / 59; Pulse 102; Resp 14; Pulse Ox 100% on 2 lpm NC; ph 17:30 BP 119 / 85; Pulse 94; Resp 25; Pulse Ox 100% on 2 lpm NC; dh3 18:00 BP 117 / 72; Pulse 105; Resp 18; Pulse Ox 100% on 2 lpm NC; dh3 19:19 BP 111 / 81; Pulse 90; Resp 17; Pulse Ox 99% on 2 lpm NC; hb 19:44 BP 107 / 66; Pulse 91; Resp 20 S; Pulse Ox 100% on NC; mt 20:17 BP 113 / 74; Pulse 94; Resp 20; Pulse Ox 97% on NC; mt 20:22 BP 113 / 74; Pulse 90; Resp 19 S; Pulse Ox 99% on R/A; jd3 21:12 BP 110 / 78; Pulse 93; Resp 21 S; Pulse Ox 100% on 2 lpm NC; cc3 22:11 BP 119 / 77; Pulse 57; Resp 19 S; Pulse Ox 99% on 2 lpm NC; jd3 16:19 Body Mass Index 26.22 (85.28 kg, 180.34 cm) ca1 MDM: 16:32 Patient medically screened. aiyana 20:19 Data reviewed: vital signs, nurses notes. Counseling: I had a detailed discussion with aiyana the patient and/or guardian regarding: the historical points, exam findings, and any diagnostic results supporting the discharge/admit diagnosis, radiology results, the need for outpatient follow up, the need for further work-up and treatment in the hospital. ED course: I discussed the patient with Dr. Olson whom accepted admission. . 11/17 16:19 Order name: Basic Metabolic Panel; Complete Time: 17:[address] [facility] 11/17 16:19 Order name: CBC with Diff; Complete Time: 17:[address] [facility] 11/17 16:19 Order name: LFT's; Complete Time: 17:[address] [facility] 11/17 16:19 Order name: Magnesium; Complete Time: 17:[address] [facility] 11/17 16:19 Order name: NT PRO-BNP; Complete Time: 17:[address] [facility] 11/17 16:19 Order name: PT-INR; Complete Time: 17:[address] [facility] 11/17 16:19 Order name: Troponin (emerg Dept Use Only); Complete Time: 17:[address] [facility] 11/17 16:19 Order name: XRAY Chest (1 view); Complete Time: 17:[address] [facility] 11/17 16:19 Order name: EKG; Complete Time: 16:[address] [facility] 11/17 20:35 Order name: CONS Physician Consult [facility] 11/17 20:35 Order name: Echo with Doppler [facility] 11/17 20:35 Order name: EKG Electrocardiogram [facility] 11/17 16:19 Order name: Cardiac monitoring; Complete Time: 16:[address] [facility] 11/17 16:19 Order name: EKG - Nurse/Tech; Complete Time: 16:[address] [facility] 11/17 16:19 Order name: IV Saline Lock; Complete Time: 16:[address] [facility] 11/17 16:19 Order name: Labs collected and sent; Complete Time: 16:[address] [facility] 11/17 16:19 Order name: O2 Per Protocol; Complete Time: 16:[address] [facility] 11/17 16:19 Order name: O2 Sat Monitoring; Complete Time: 16:[address] [facility] 11/17 20:35 Order name: EKG Electrocardiogram EDIN Administered Medications: 16:57 Drug: Magnesium Sulfate 1 grams Route: IVPB; Infused Over: 1 hrs; Site: right ph antecubital; 19:15 Follow up: Response: No adverse reaction; IV Status: Completed infusion; IV Intake: cc3 100ml 19:45 Drug: NS 0.9% 1000 ml Route: IV; Rate: 125 ml/hr; Site: right antecubital; cc3 21:15 Follow up: Response: No adverse reaction; IV Status: Infusion continued upon admission cc3 Disposition: 11/18 07:35 Co-signature as Attending Physician, Ventura Magallanes MD I agree with the assessment and wa plan of care. Disposition: 11/17/18 20:21 Hospitalization ordered by Reema Olson for Observation. Preliminary diagnosis is Syncope and collapse. - Bed requested for Telemetry/MedSurg (observation). - Status is Observation. jd3 - Condition is Stable. - Problem is new. - Symptoms have improved. UTI on Admission? No Signatures: Dispatcher [employer] EDMS Mauro Canela, Karen Ireland, RN RN Svetlana Ruiz, RN RN tw2 Ventura Magallanes MD MD wa Davies, Jonathon RN RN jd3 Luis M Hernandez RN RN ja1 Zelda Byrne cc3 Corrections: (The following items were deleted from the chart) 11/17 20:45 20:21 Hospitalization Ordered by Reema Olson MD for Observation. Preliminary ja1 diagnosis is Syncope and collapse. Bed requested for Telemetry/MedSurg (observation). Status is Observation. Condition is Stable. Problem is new. Symptoms have improved. UTI on Admission? No. [facility] 22:13 20:45 11/17/2018 20:21 Hospitalization Ordered by Reema Olson MD for Observation. jd3 Preliminary diagnosis is Syncope and collapse. Bed requested for Telemetry/MedSurg (observation). Status is Observation. Condition is Stable. Problem is new. Symptoms have improved. UTI on Admission? No. ja1
[2018-11-17] MEDS ORDERED: ZOLPIDEM TARTRATE 5 MG TABLET PO PRN (20:30)
[2018-11-17] MEDS ORDERED: MAGNESIUM HYDROXIDE 8% 30 ML PO PRN (20:30)
[2018-11-17] MEDS ORDERED: ONDANSETRON 4 MG/2 ML VIAL IV PRN (20:30)
[2018-11-17] MEDS ORDERED: METOPROLOL TAR 50 MG TAB PO SCH (21:00)
[2018-11-17 22:31] VITALS: BMI 27.6
[2018-11-18 05:49] LABS: Absolute Lymphocytes (CBC) 1.4 K/uL (0.7-4.9); Absolute Monocytes 0.4 K/uL (0.1-1.3); Absolute Neutrophil 3.5 K/uL (1.8-8.0); Basophils % 0.7 % (0-1.3); Eosinophils % 3.8 % (0-4.4); Hematocrit 38.4 % (39.6-49.0); Lymphocytes % 25.4 % (15.3-44.8); MPV 9.8 fL (7.6-11.3); Monocytes % 6.8 % (3.3-12.3); RBC Red Blood Cell Count 4.02 M/uL (4.33-5.43)
[2018-11-18 06:13] LABS: Bilirubin Total 0.6 mg/dL (0.2-1.0); Magnesium 2.3 mg/dL (1.8-2.4); Phosphorus 3.6 mg/dL (2.5-4.9); Potassium 4.2 mmol/L (3.5-5.1); Protein, Total 6.7 g/dL (6.4-8.2)
[2018-11-18] MEDS ORDERED: CALCIUM CARBONATE CHEW 500MG TAB PO PRN (07:41)
[2018-11-18] MEDS ORDERED: METOPROLOL TARTRATE 5 MG/5 ML INJ IV STA (07:42)
--- NOTE | 2018-11-18 07:52 | P.HP ---
Certification for Inpatient Patient admitted to: Inpatient With expected LOS: >2 Midnights Patient will require the following post-hospital care: None Practitioner: I am a practitioner with admitting privileges, knowledge of patient current condition, hospital course, and medical plan of care. Services: Services provided to patient in accordance with Admission requirements found in Title 42 Section 412.3 of the Code of Federal Regulations Patient History Date of Service: 11/17/18 History of Present Illness: Patient is an 83-year-old gentleman who comes into the hospital after falling. He was at the doctor's office and he fell down. There was no loss of consciousness. He was brought into the hospital for further evaluation. Patient was in atrial fibrillation. He patient also has some shortness of breath with elevated BNP levels. He will be treated for CHF and AFib. Will continue with current plan of care at this time. Allergies No Known Allergies Allergy (Verified 11/18/18 01:17) Home Medications: Atorvastatin Calcium [Lipitor*] 20 mg PO T,TH,S 06/05/16 Docusate [Colace Cap*] 250 mg PO BID 06/05/16 Dorzolamide HCl/Timolol Maleat [Dorzolamide-Timolol Eye Drops] 1 drop OP BID Multivitamin [Daily Multiple Vitamin] 1 tab PO DAILY 06/05/16 Tramadol HCl [Ultram] 100 mg PO DAILY 06/05/16 Pregabalin [Lyrica*] 100 mg PO BID 10/05/18 Cod Liver/Zinc Oint [Desitin Ointment*] 1 eduardo TOP BID #1 tube 10/26/18 Cyanocobalamin [Vitamin B-12*] 1,000 mcg PO DAILY #30 tab 10/26/18 Metoprolol Tartrate [Lopressor*] 50 mg PO BID #60 tab 10/26/18 Nystatin Oint [Mycostatin 100 Mu/Gm Oint*] 1 appl TOP BID #1 tube 10/26/18 Thiamine HCl [Vitamin B-1*] 100 mg PO DAILY #30 tablet 10/26/18 Acetaminophen [Tylenol*] 1 tab PO Q6H PRN 11/17/18 Acetaminophen/Diphenhydramine [Tylenol Pm Ex-Strength Caplet] 1 tab PO BEDTIME PRN 11/17/18 Calcium Carbonate [Tums Regular*] 500 mg PO Q8H PRN 11/17/18 Folic Acid 1 mg PO DAILY 11/17/18 Rivaroxaban [Xarelto] 20 mg PO BEDTIME 11/17/18 - Past Medical/Surgical History Has patient received pneumonia vaccine in the past: Yes Diabetic: No -: Benign Hypertension -: Hypercholestrolemia -: Obesity -: Osteoarthritis -: Venous Insufficiency -: Epidural Lipomatosis -: Lumbosacral spinal stenosis -: Glaucoma -: Atrial fibrillation with RVR -: Chronic back pain -: Bilateral cataract -: Right rotator cuff -: Cardioversion x3 - Family History Mother Medical History: Stroke, Cancer Sister Medical History: Hypertension, Diabetes - Social History Smoking Status: Former smoker Alcohol use: Yes CD- Drugs: No Caffeine use: Yes Place of Residence: Home Review of Systems 10-point ROS is otherwise unremarkable Physical Examination - Vital Signs Temperature: 97.8 F Blood Pressure: 126/63 Pulse: 84 Respirations: 20 Pulse Ox (%): 93 - Physical Exam General: Alert, In no apparent distress, Oriented x2 HEENT: Atraumatic, PERRLA, Mucous membr. moist/pink, EOMI, Sclerae nonicteric Neck: Supple, 2+ carotid pulse no bruit, No LAD, Without JVD or thyroid abnormality Respiratory: Diminished, Crackles/rales Cardiovascular: Regular rate/rhythm, Normal S1 S2, Systolic murmur Gastrointestinal: Normal bowel sounds, Soft and benign, Non-distended, No tenderness Musculoskeletal: No clubbing, No swelling, No tenderness Integumentary: No rashes Neurological: Normal gait, Normal speech, Normal tone, Sensation intact, Cranial nerves 3-12 intact, Normal affect, Abnormal strength Lymphatics: No axilla or inguinal lymphadenopathy - Studies Laboratory Data (last 24 hrs) 11/17/18 16:30: PT 17.1 H, INR 1.47 11/17/18 16:30: WBC 7.7, Hgb 14.0, Hct 42.6, Plt Count 209 11/17/18 16:30: Sodium 141, Potassium 4.9, BUN 21 H, Creatinine 1.30, Glucose 118 H, Magnesium 2.2, Total Bilirubin 0.5, AST 27, ALT 28, Alkaline Phosphatase 102 Assessment & Plan - Problems (Diagnosis) (1) Atrial fibrillation with rapid ventricular response Onset Date: 10/05/18 Current Visit: No Status: Acute (2) Chronic venous hypertension w/ulcer and inflammation involv right side Current Visit: No Status: Acute (3) Osteoarthritis Current Visit: No Status: Acute (4) Syncope Current Visit: No Status: Acute Qualifiers: Syncope type: unspecified Qualified Code(s): R55 - Syncope and collapse (5) Venous insufficiency Current Visit: No Status: Acute (6) Atrial fibrillation Current Visit: No Status: Chronic Qualifiers: Atrial fibrillation type: chronic Qualified Code(s): I48.2 - Chronic atrial fibrillation (7) Benign hypertension Current Visit: No Status: Chronic (8) CHF (congestive heart failure) Onset Date: 10/05/18 Current Visit: No Status: Chronic Qualifiers: Heart failure type: systolic (9) Obesity (BMI 30.0-34.9) Onset Date: 10/05/18 Current Visit: No Status: Chronic - Plan Plan: 1. Continue with medication for rate control along with anti coagulation 2. Gentle diuresing 3. Physical therapy evaluation 4. Monitor renal function 5. GI and DVT prophylaxis Discharge Plan: Home Plan to discharge in: 72 Hours - Advance Directives Does patient have a Living Will: No Does patient have a Durable POA for Healthcare: Yes - Code Status/Comfort Care Code Status Assessed: Yes Code Status: Full Code Critical Care: No Time Spent Managing PTS Care (In Minutes): 50
[2018-11-18] MEDS ORDERED: METOPROLOL TARTRATE 5 MG/5 ML INJ IV ONE (07:59)
[2018-11-18] MEDS ORDERED: ENOXAPARIN 40 MG/0.4 ML SQ SCH (09:00)
[2018-11-18] MEDS ORDERED: CLOPIDOGREL 75 MG TABLET PO SCH (09:00)
[2018-11-18] MEDS ORDERED: ASPIRIN EC 81 MG TAB PO SCH (09:00)
[2018-11-18] MEDS: THIAMINE HCL 100 MG TABLET PO SCH (09:16)
[2018-11-18] MEDS: TRAMADOL HCL 50 MG TAB PO SCH (09:16)
[2018-11-18] MEDS: PREGABALIN 50 MG CAP PO SCH ×2 (09:17→21:00)
[2018-11-18] MEDS: FUROSEMIDE 40 MG/4 ML VIAL IV SCH ×2 (09:18→16:23)
[2018-11-18] MEDS: METOPROLOL TAR 50 MG TAB PO SCH ×2 (09:25→21:00)
--- NOTE | 2018-11-18 09:43 | CON ---
Additional Attending Physician: Reema Olson M.D. Chief Complaint: Loss of consciousness. History Of Present Illness: Mr. Coreas has been coughing, feeling short of breath. He thought he ferrara d bronchitis, went to see a doctor. He cannot tell me who the doctor was, and he apparently lost con sciousness. He was sent to the ER. Since being here, he has had atrial fib, no pauses, no obvious c ause for loss of consciousness on rhythm strips. Mr. Coreas is known to have severe aortic stenosis by echo. The estimated aortic valve area is around 0.8 or 0.9. By cardiac cath, the gradient was 50 mmHg, it was said to be moderate, but now that he has had syncope, we have to think that this is pro bably severe aortic stenosis. His cardiac cath was on October 20, 2018, here in this hospital. His coronary arteries had mild disease. No significant stenosis. Mr. Coreas has a pretty severe confus ion today. I do not know what his baseline is. He has underlying chronic atrial fibrillation, dysli pidemia, hypertension, and glaucoma. He takes dorzolamide, timolol, docusate, tramadol, atorvastatin , Lyrica, metoprolol, calcium carbonate, acetaminophen, and Xarelto 20. Physical Examination: General: The patient is alert, very slow mentation. He takes much longer to answer questions than w ould be considered normal confusion such as the fact he does not remember he had a cardiac cath exact ly 1 month ago, nor the name of the doctor's office he was at yesterday. Lungs: Do not reveal crackles. Heart: Reveals an irregularly irregular rhythm. There is a systolic murmur. Abdomen: Soft. Extremities: Mild edema. Distal pulses palpable. Impression: The patient has critical aortic stenosis. I am going to review the cath findings, and s ee what I think, but I think the patient needs to be considered for a transcutaneous aortic valve replacement. ELLIOTT/DANIELA Voice ID: [id number] Report ID: [id number]
--- NOTE | 2018-11-18 12:43 | EKG ---
Test Date: 2018-11-18 Test Time: 09:43:17 Parking Ramp Attendant: BETTINA MEASUREMENT RESULTS: Intervals: Rate: 128 KS: QRSD: 132 QT: 354 QTc: 516 [place]: P: KS: QRS: -45 T: -28 INTERPRETIVE STATEMENTS: Atrial fibrillation with rapid ventricular response Right bundle branch block Left axis Cannot rule out Inferior infarct Abnormal ECG Compared to ECG 11/17/2018 16:12:24 Myocardial infarct finding still present Electronically Signed On 11-18-18 12:43:13 CDT by Jay Sánchez
--- NOTE | 2018-11-18 12:49 | P.PN ---
Subjective Date of Service: 11/18/18 pt seen and examined at bedside with RN. Chart Reviewed and case DW with Cardiology. Pt is Currently in irregular Rhythm and awaiting bed at higher level care for Aortic stenosis Review of Systems 10-point ROS is otherwise unremarkable Physical Examination - Vital Signs Temperature: 97.1 F Blood Pressure: 143/83 Pulse: 128 Respirations: 18 Pulse Ox (%): 96 - Physical Exam General: Alert, In no apparent distress, Other (lethargic ) HEENT: Atraumatic, PERRLA, EOMI Neck: Supple, JVD not distended Respiratory: Clear to auscultation bilaterally, Normal air movement Cardiovascular: Normal S1 S2, Irregular heart rate/rhythm Gastrointestinal: Normal bowel sounds, No tenderness Musculoskeletal: No tenderness Integumentary: No rashes Neurological: Normal speech, Normal tone, Normal affect Lymphatics: No axilla or inguinal lymphadenopathy - Studies Laboratory Data (last 24 hrs) 11/17/18 16:30: PT 17.1 H, INR 1.47 11/17/18 16:30: WBC 7.7, Hgb 14.0, Hct 42.6, Plt Count 209 11/17/18 16:30: Sodium 141, Potassium 4.9, BUN 21 H, Creatinine 1.30, Glucose 118 H, Magnesium 2.2, Total Bilirubin 0.5, AST 27, ALT 28, Alkaline Phosphatase 102 Medications List Reviewed: Yes Assessment And Plan - Current Problems (Diagnosis) (1) Aortic stenosis Current Visit: Yes Status: Acute Plan: Pt with Severe Aortic Stenosis on the ECHO in sep 2018 -Cards Consulted. Appreciated Reccs -Reccs AVR. Pt has been accepted by Dr Hilton at [facility] for Replacement. -Will transfer the patient. Currently awaiting bed Qualifiers: Cardiac valve disease etiology: etiology unspecified Qualified Code(s): I35.0 - Nonrheumatic aortic (valve) stenosis (2) Atrial fibrillation with rapid ventricular response Onset Date: 10/05/18 Current Visit: No Status: Acute Plan: Afib with RVR -On Metoprolol and Xarelto. -Cardiology consulted. Reccs Appreciated (3) Benign hypertension Current Visit: No Status: Chronic (4) CHF (congestive heart failure) Onset Date: 10/05/18 Current Visit: No Status: Chronic Qualifiers: Heart failure type: systolic Heart failure chronicity: chronic Qualified Code(s): I50.22 - Chronic systolic (congestive) heart failure (5) Obesity (BMI 30.0-34.9) Onset Date: 10/05/18 Current Visit: No Status: Chronic Discharge Plan: Other Plan to discharge in: Greater than 2 days - Code Status/Comfort Care Code Status Assessed: Yes Critical Care: No
[2018-11-18] MEDS ORDERED: NA CHLORIDE 0.9% 250 ML IV ONE (21:15)
[2018-11-18] MEDS ORDERED: NA CHLORIDE 0.9% 250 ML ONE (21:56)
[2018-11-18] MEDS: RIVAROXABAN 20 MG TABLET PO SCH (22:33)
[2018-11-18] MEDS: ATORVASTATIN 20 MG TAB PO SCH (22:33)
[2018-11-19] MEDS ORDERED: METOPROLOL TARTRATE 5 MG/5 ML INJ IV STA ×2 (03:35→04:41)
[2018-11-19 06:27] LABS: Absolute Lymphocytes (CBC) 1.9 K/uL (0.7-4.9); Absolute Monocytes 0.5 K/uL (0.1-1.3); Absolute Neutrophil 4.4 K/uL (1.8-8.0); Basophils % 0.5 % (0-1.3); Eosinophils % 0.6 % (0-4.4); Hematocrit 40.3 % (39.6-49.0); Lymphocytes % 27.1 % (15.3-44.8); MPV 9.8 fL (7.6-11.3); Monocytes % 7.7 % (3.3-12.3)
[2018-11-19 06:52] LABS: Albumin 3.2 g/dL (3.4-5.0); Bilirubin Total 0.8 mg/dL (0.2-1.0); Magnesium 2.2 mg/dL (1.8-2.4); Phosphorus 3.8 mg/dL (2.5-4.9); Potassium 4.2 mmol/L (3.5-5.1); Protein, Total 7.2 g/dL (6.4-8.2)
--- NOTE | 2018-11-19 08:04 | P.PN ---
Date of Service: 11/19/18 Patient's chart reviewed. Patient had been in atrial fibrillation with rapid ventricular response. He is scheduled for transfer for severe aortic stenosis for percutaneous aortic valve repair. Because of his numerous cardiac issues requested nursing staff to notify Cardiology. Patient given bolus of IV fluids. Blood pressure improved after the 2nd bolus. If blood pressure remains elevated we will give IV Lopressor and will await cardiology consultation again in a.m.. Clinically patient with no complaints. He does appear to be slightly tachypneic. Will check a chest x-ray in a.m..
[2018-11-19] MEDS: TRAMADOL HCL 50 MG TAB PO SCH (08:39)
[2018-11-19] MEDS: PREGABALIN 50 MG CAP PO SCH ×2 (08:39→21:10)
[2018-11-19] MEDS: METOPROLOL XL 50 MG TAB PO SCH ×2 (08:39→17:43)
[2018-11-19] MEDS: THIAMINE HCL 100 MG TABLET PO SCH (08:40)
--- NOTE | 2018-11-19 09:10 | PN ---
After reviewing all of the studies, I suspect he has moderate aortic stenosis at best, and the spell he had yesterday was probably not syncope, but falling. As we watch telemetry, we see his heart rate get up very high. I think he needs to be on a slow-release metoprolol preparation instead of the sh ort-release, and we might be able to eliminate these high and low heart rate spells that may solve hi s all problem. In the meantime, he could have his valve evaluated by a cardiac MRI or cardiac CT ang io to see if he really needs a valve. I am back and forth on whether the valve is really that bad, b ut I do not think he had syncope from aortic stenosis. I think he just fell, or a historical informa tion comes out that makes me believe that, so I am ready for him to be discharged. I changed his met oprolol to Toprol-XL 50 b.i.d., and he will see Dr. Camacho as an outpatient. ELLIOTT/DANIELA Voice ID: [id number] Report ID: [id number]
[2018-11-19] MEDS: ACETAMINOPHEN 500 MG TAB PO PRN ×3 (12:53→21:10)
--- NOTE | 2018-11-19 13:12 | RAD REPORT ---
EXAM DESCRIPTION: Carlee Single View11/19/2018 1:05 pm CLINICAL HISTORY: Shortness of breath COMPARISON: November 17 FINDINGS: The lungs appear clear of acute infiltrate. The heart is mildly enlarged Mild prominence of the superior mediastinum probably is not significant. Follow up PA and lateral vaughn st series in 3 months recommended to assess stability
--- NOTE | 2018-11-19 13:37 | P.PN ---
Subjective Date of Service: 11/19/18 pt seen and examined at bedside with RN. Chart Reviewed and case DW with Cardiology. Pt is Currently in irregular Rhythm and awaiting bed at higher level care for Aortic stenosis Review of Systems 10-point ROS is otherwise unremarkable Physical Examination - Vital Signs Temperature: 98.1 F Blood Pressure: 94/52 Pulse: 84 Respirations: 16 Pulse Ox (%): 95 - Physical Exam General: Alert, In no apparent distress, Cachectic, Mild distress HEENT: Atraumatic, PERRLA, EOMI Neck: JVD distended Respiratory: Normal air movement, Rhonchi/gurgles Cardiovascular: Regular rate/rhythm, Normal S1 S2 Gastrointestinal: Normal bowel sounds, No tenderness Musculoskeletal: No tenderness Integumentary: No rashes Neurological: Normal speech, Normal tone, Normal affect Lymphatics: No axilla or inguinal lymphadenopathy - Studies Medications List Reviewed: Yes Assessment And Plan - Current Problems (Diagnosis) (1) Aortic stenosis Current Visit: Yes Status: Acute Plan: Pt with Severe Aortic Stenosis on the ECHO in sep 2018 -Cards Consulted. Appreciated Reccs -Reccs AVR. Pt has been accepted by Dr Hilton at [facility] for Replacement. However hospital is out of network -Attempted to transfer to [facility], Pending bed at this time Qualifiers: Cardiac valve disease etiology: etiology unspecified Qualified Code(s): I35.0 - Nonrheumatic aortic (valve) stenosis (2) Atrial fibrillation with rapid ventricular response Onset Date: 10/05/18 Current Visit: No Status: Acute Plan: Afib with RVR -On Metoprolol and Xarelto. -Cardiology consulted. Reccs Appreciated (3) Benign hypertension Current Visit: No Status: Chronic (4) CHF (congestive heart failure) Onset Date: 10/05/18 Current Visit: No Status: Chronic Qualifiers: Heart failure type: systolic Heart failure chronicity: chronic Qualified Code(s): I50.22 - Chronic systolic (congestive) heart failure (5) Obesity (BMI 30.0-34.9) Onset Date: 10/05/18 Current Visit: No Status: Chronic Discharge Plan: Other Plan to discharge in: Greater than 2 days - Code Status/Comfort Care Code Status Assessed: Yes Critical Care: No
[2018-11-19] MEDS: RIVAROXABAN 20 MG TABLET PO SCH (21:10)
[2018-11-20] MEDS: METOPROLOL XL 50 MG TAB PO SCH ×2 (05:10→18:06)
[2018-11-20] MEDS: THIAMINE HCL 100 MG TABLET PO SCH (09:13)
[2018-11-20] MEDS: PREGABALIN 50 MG CAP PO SCH ×2 (09:13→20:54)
[2018-11-20] MEDS: TRAMADOL HCL 50 MG TAB PO SCH (09:14)
--- NOTE | 2018-11-20 09:51 | PN ---
Mr. Coreas is not having any particular symptoms. He has not had syncope now that he stays on his me dications. His heart rate is fine. He is in chronic atrial fibrillation. We think he has significa nt aortic stenosis. It is questionable whether it is really severe. He had an episode of syncope an d after yesterday's discussion with the patient, I thought he could be discharged and transferred and see one of the surgeons up in [place] that can do a TAVR procedure and have another evaluation, prob ably a cardiac MRI to confirm that he really needs it, but the patient's became very upset at th e idea of him going home, so he is being transferred. I suspect after the evaluation, we will probab ly transfer him back home. I think the main reason he falls is because of his profound dementia and in activity. I think the aortic stenosis is [id number] and not really causing his symptoms, bu t further evaluation is warranted, and cannot really be done here, so he will be transferred to [facility] on. ELLIOTT/DANIELA Voice ID: [id number] Report ID: [id number]
--- NOTE | 2018-11-20 11:32 | RAD REPORT ---
EXAM DESCRIPTION: RAD - Chest Single View - 11/20/2018 11:15 am CLINICAL HISTORY: wheezing Chest pain. COMPARISON: Chest Single View dated 11/19/2018; Chest Single View dated 11/17/2018; Chest Single View dated 10/18/2018; Abdomen 1 View (KUB) dated 10/17/2018 FINDINGS: Portable technique limits examination quality. The lungs are grossly clear. The heart is mildly enlarged in size. No displaced fractures. IMPRESSION: No acute intrathoracic process suspected.
--- NOTE | 2018-11-20 12:14 | P.PN ---
Subjective Date of Service: 11/20/18 pt seen and examined at bedside with RN. Chart Reviewed and case DW with Cardiology. Overnight has not been feeling well. Coughing and feeling weak. Awaiting bed at [facility] Review of Systems 10-point ROS is otherwise unremarkable Physical Examination - Vital Signs Temperature: 97.4 F Blood Pressure: 123/63 Pulse: 89 Respirations: 16 Pulse Ox (%): 94 - Physical Exam General: Alert, In no apparent distress, Oriented x2, Demented HEENT: Atraumatic, PERRLA, EOMI Neck: Supple, JVD not distended Respiratory: Normal air movement, Rhonchi/gurgles Cardiovascular: Regular rate/rhythm, Normal S1 S2 Gastrointestinal: Normal bowel sounds, No tenderness Musculoskeletal: No tenderness Integumentary: No rashes Neurological: Normal speech, Normal tone, Normal affect Lymphatics: No axilla or inguinal lymphadenopathy - Studies Medications List Reviewed: Yes Assessment And Plan - Current Problems (Diagnosis) (1) Aortic stenosis Current Visit: Yes Status: Acute Plan: Pt with Mid to mod Aortic Stenosis on the ECHO in sep 2018 -Cards Consulted. Appreciated Reccs -Reccs AVR. Pt has been accepted by Dr Hilton at [facility] for Replacement. However hospital is out of network -Attempted to transfer to [facility], Pending bed at this time Qualifiers: Cardiac valve disease etiology: etiology unspecified Qualified Code(s): I35.0 - Nonrheumatic aortic (valve) stenosis (2) Atrial fibrillation with rapid ventricular response Onset Date: 10/05/18 Current Visit: No Status: Acute Plan: Afib with RVR -On Metoprolol and Xarelto. -Cardiology consulted. Reccs Appreciated (3) Benign hypertension Current Visit: No Status: Chronic (4) CHF (congestive heart failure) Onset Date: 10/05/18 Current Visit: No Status: Chronic Qualifiers: Heart failure type: systolic Heart failure chronicity: chronic Qualified Code(s): I50.22 - Chronic systolic (congestive) heart failure (5) Obesity (BMI 30.0-34.9) Onset Date: 10/05/18 Current Visit: No Status: Chronic - Plan Will get PT/OT to see the patient today for rehab. Will also get Xray to r.o any worsening of CHF vs Pna. pending bed at [facility] Discharge Plan: Other Plan to discharge in: Greater than 2 days - Code Status/Comfort Care Code Status Assessed: Yes Critical Care: No
[2018-11-20] MEDS: ATORVASTATIN 20 MG TAB PO SCH (20:54)
[2018-11-20] MEDS: RIVAROXABAN 20 MG TABLET PO SCH (20:54)
[2018-11-20] MEDS: ACETAMINOPHEN 500 MG TAB PO PRN (20:55)
[2018-11-21] MEDS: METOPROLOL XL 50 MG TAB PO SCH ×3 (05:08→21:40)
[2018-11-21] MEDS: TRAMADOL HCL 50 MG TAB PO SCH (08:49)
[2018-11-21] MEDS: PREGABALIN 50 MG CAP PO SCH ×2 (08:49→21:40)
[2018-11-21] MEDS: THIAMINE HCL 100 MG TABLET PO SCH (08:50)
--- NOTE | 2018-11-21 10:59 | P.PN ---
Subjective Date of Service: 11/21/18 pt seen and examined at bedside with RN. Chart Reviewed and case DW with Cardiology. Working with physical therapy. Awaiting bed at [facility] Review of Systems 10-point ROS is otherwise unremarkable Physical Examination - Vital Signs Temperature: 97.8 F Blood Pressure: 110/69 Pulse: 86 Respirations: 18 Pulse Ox (%): 97 - Physical Exam General: Alert, In no apparent distress, Cachectic Neck: JVD distended Respiratory: Normal air movement, Rhonchi/gurgles Cardiovascular: Regular rate/rhythm, Normal S1 S2 Gastrointestinal: Normal bowel sounds, No tenderness Musculoskeletal: No tenderness Integumentary: No rashes Neurological: Normal speech, Normal tone, Normal affect Lymphatics: No axilla or inguinal lymphadenopathy - Studies Medications List Reviewed: Yes Assessment And Plan - Current Problems (Diagnosis) (1) Aortic stenosis Current Visit: Yes Status: Acute Plan: Pt with Mid to mod Aortic Stenosis on the ECHO in sep 2018 -Cards Consulted. Appreciated Reccs -Reccs AVR. Pt has been accepted by Dr Hilton at [facility] for Replacement. However hospital is out of network -Attempted to transfer to [facility], Pending bed at this time Qualifiers: Cardiac valve disease etiology: etiology unspecified Qualified Code(s): I35.0 - Nonrheumatic aortic (valve) stenosis (2) Atrial fibrillation with rapid ventricular response Onset Date: 10/05/18 Current Visit: No Status: Acute Plan: Afib with RVR -On Metoprolol and Xarelto. -Cardiology consulted. Reccs Appreciated (3) Benign hypertension Current Visit: No Status: Chronic (4) CHF (congestive heart failure) Onset Date: 10/05/18 Current Visit: No Status: Chronic Qualifiers: Heart failure type: systolic Heart failure chronicity: chronic Qualified Code(s): I50.22 - Chronic systolic (congestive) heart failure (5) Obesity (BMI 30.0-34.9) Onset Date: 10/05/18 Current Visit: No Status: Chronic - Plan Pending clinical improvement at this time. PTOT recommendations appreciated. Chest x-ray from yesterday within normal limits. Currently awaiting a bed at [facility].
--- NOTE | 2018-11-21 16:18 | PN ---
Mr. Coreas is barely able to stand. I think it is all leg weakness. I do not think his aortic valve is so bad that it is keeping him from standing. His mental status is improving to be quite abnormal . 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 ELLIOTT/DANIELA Voice ID: [id number] Report ID: [id number]
[2018-11-21] MEDS: ACETAMINOPHEN 500 MG TAB PO PRN (21:41)
[2018-11-21] MEDS: RIVAROXABAN 20 MG TABLET PO SCH (21:41)
[2018-11-22] MEDS: METOPROLOL XL 50 MG TAB PO SCH (05:38)
[2018-11-22] MEDS: PREGABALIN 50 MG CAP PO SCH (09:41)
[2018-11-22] MEDS: THIAMINE HCL 100 MG TABLET PO SCH (09:41)
[2018-11-22] MEDS: TRAMADOL HCL 50 MG TAB PO SCH (09:41)
[2018-11-22 13:07] VITALS: BP 80/61; TEMP 97.9
[2018-11-22 15:18] VITALS: O2SAT 93
--- NOTE | 2018-11-22 18:56 | P.DS ---
Admission Date: 11/17/18 Discharge Date: 11/22/18 Disposition: TRANSFER TO [facility] Brief History of Present Illness: see HC Hospital Course: Patient is an 83-year-old gentleman who presented to the hospital with fall nad syncope ,pt was managed for Afib and CHF and aortic stenosis and cardiology was consulkted and was unkown if the arotic stenosis contributed to his syncope , pt was transferred for high level of care for evaluation of aortic stenosis and possible TAVR pt was managed for: (1) Aortic stenosis Current Visit: Yes Status: Acute Plan: Pt with Mid to mod Aortic Stenosis on the ECHO in sep 2018 -Cards Consulted. Appreciated Reccs -Reccs AVR. Pt has been accepted by Dr Hilton at [facility] for Replacement. However hospital is out of network -Attempted to transfer to [facility], Pending bed at this time Qualifiers: Cardiac valve disease etiology: etiology unspecified Qualified Code(s): I35.0 - Nonrheumatic aortic (valve) stenosis (2) Atrial fibrillation with rapid ventricular response Onset Date: 10/05/18 Current Visit: No Status: Acute Plan: Afib with RVR -On Metoprolol and Xarelto. -Cardiology consulted. Reccs Appreciated (3) Benign hypertension Current Visit: No Status: Chronic (4) CHF (congestive heart failure) Onset Date: 10/05/18 Current Visit: No Status: Chronic Qualifiers: Heart failure type: systolic Heart failure chronicity: chronic Qualified Code(s): I50.22 - Chronic systolic (congestive) heart failure (5) Obesity (BMI 30.0-34.9) Onset Date: 10/05/18 Current Visit: No Status: Chronic Vital Signs/Physical Exam: Temp Pulse Resp BP Pulse Ox 97.9 F 80 18 80/61 L 93 11/22/18 12:00 11/22/18 12:00 11/22/18 12:00 11/22/18 12:00 11/22/18 12:00 Laboratory Data at Discharge: WBC 6.9 K/uL (4.3-10.9) D 11/19/18 06:17 Hgb 13.5 g/dL (13.6-17.9) L 11/19/18 06:17 Hct 40.3 % (39.6-49.0) 11/19/18 06:17 Plt Count 154 K/uL (152-406) 11/19/18 06:17 PT 17.1 SECONDS (9.5-12.5) H 11/17/18 16:30 INR 1.47 11/17/18 16:30 Sodium 137 mmol/L (136-145) 11/19/18 06:17 Potassium 4.2 mmol/L (3.5-5.1) 11/19/18 06:17 BUN 24 mg/dL (7-18) H 11/19/18 06:17 Creatinine 1.27 mg/dL (0.55-1.3) 11/19/18 06:17 Glucose 105 mg/dL (74-106) 11/19/18 06:17 Phosphorus 3.8 mg/dL (2.5-4.9) 11/19/18 06:17 Magnesium 2.2 mg/dL (1.8-2.4) 11/19/18 06:17 Total Bilirubin 0.8 mg/dL (0.2-1.0) 11/19/18 06:17 AST 27 U/L (15-37) 11/19/18 06:17 ALT 24 U/L (12-78) 11/19/18 06:17 Alkaline Phosphatase 85 U/L (45-117) 11/19/18 06:17 Home Medications: Atorvastatin Calcium [Lipitor*] 20 mg PO T,,S 06/05/16 Docusate [Colace Cap*] 250 mg PO BID 06/05/16 Dorzolamide HCl/Timolol Maleat [Dorzolamide-Timolol Eye Drops] 1 drop OP BID Multivitamin [Daily Multiple Vitamin] 1 tab PO DAILY 06/05/16 Tramadol HCl [Ultram] 100 mg PO DAILY 06/05/16 Pregabalin [Lyrica*] 100 mg PO BID 10/05/18 Cod Liver/Zinc Oint [Desitin Ointment*] 1 eduardo TOP BID #1 tube 10/26/18 Cyanocobalamin [Vitamin B-12*] 1,000 mcg PO DAILY #30 tab 10/26/18 Metoprolol Tartrate [Lopressor*] 50 mg PO BID #60 tab 10/26/18 Nystatin Oint [Mycostatin 100 Mu/Gm Oint*] 1 appl TOP BID #1 tube 10/26/18 Thiamine HCl [Vitamin B-1*] 100 mg PO DAILY #30 tablet 10/26/18 Acetaminophen [Tylenol*] 1 tab PO Q6H PRN 11/17/18 Acetaminophen/Diphenhydramine [Tylenol Pm Ex-Strength Caplet] 1 tab PO BEDTIME PRN 11/17/18 Calcium Carbonate [Tums Regular*] 500 mg PO Q8H PRN 11/17/18 Folic Acid 1 mg PO DAILY 11/17/18 Rivaroxaban [Xarelto] 20 mg PO BEDTIME 11/17/18 Bimatoprost [Lumigan] 1 drop OP BEDTIME 11/20/18
== END 2018-11-22 14:15 | disposition short-term general hospital (02) | DRG 309 ==
LOC: ER 15:53 → 2ND 20:31
PROVIDERS: ADMIT Hospitalist; ATTEND Internal Medicine
DX: I48.2 Chronic atrial fibrillation (principal); I50.22 Chronic systolic (congestive) heart failure; Z79.01 Long term (current) use of anticoagulants; E78.00 Pure hypercholesterolemia, unspecified; M19.90 Unspecified osteoarthritis, unspecified site; Z87.891 Personal history of nicotine dependence; I87.2 Venous insufficiency (chronic) (peripheral); I11.0 Hypertensive heart disease with heart failure; R55 Syncope and collapse; E66.9 Obesity, unspecified; I35.0 Nonrheumatic aortic (valve) stenosis; H40.9 Unspecified glaucoma; R06.82 Tachypnea, not elsewhere classified; W18.30XA Fall on same level, unspecified, initial encounter; Y93.89 Activity, other specified; Y92.531 Health care provider office as the place of occurrence of the external cause; F01.50 Vascular dementia, unspecified severity, without behavioral disturbance, psychotic disturbance, mood disturbance, and anxiety; Z68.30 Body mass index [BMI] 30.0-30.9, adult
CPT/HCPCS: 36415; 71045; 80048; 80053; 80076; 83735; 83880; 84100; 84484; 85025; 85610; 93005; 94760; 96361; 96365; 96366; 97112; 97163; 97167; 97530; 99285; J1940; J3475; J7030